=== PATIENT | female | born 1990 | race Caucasian/White ===

== ENCOUNTER 2017-05-08 14:36 | Inpatient (IN) | payer BC ==
[2017-05-08] MEDS ORDERED: morphine CARPU-JECT 4 MG/1 ML DISP.SYRIN IVPUSH ONE ×4 (15:01→22:02)
[2017-05-08] MEDS ORDERED: SODIUM CHLORIDE 0.9% 1000 ML INFUS.BAG IV ONE (15:02)
[2017-05-08] MEDS ORDERED: ONDANSETRON 4 MG/2 ML VIAL IVPUSH ONE (15:14)
--- NOTE | 2017-05-08 15:14 | PDOC ---
History of Present Illness - General Chief Complaint: Pain Stated Complaint: PAIN Time Seen by Provider: 05/08/17 14:53 - History of Present Illness Initial Comments: 05/08/17 15:10 Patient is a 27 y.o. female with a PMH of HTN who presents to our facility c/o acute onset of vomiting and sharp, diffuse, 10/10 abdominal pain. Patient states the pain woke her up at 2 a.m. and since that time she has vomited ( yellowish, no abiel blood) 40-50x. Patient denies any associated fevers, chills , diarrhea, constipation. Patient states she was evaluated at [facility] earlier today and told her labs indicated pancreatitis, patient was going to recieve a CT scan, however the hospital had bed bugs and she left. Patient further states [place] and does not have primary care. Surgical: Cholecystectomy (2010) Allergies: NKDA, iodine, latex Social: denies cigarettes, denies alcohol, denies recreational drgus PMD: None Past History - Past Medical History Allergies/Adverse Reactions: Allergies Allergy/AdvReac Type Severity Reaction Status Date / Time iodine Allergy Swelling Verified 05/08/17 14:43 latex Allergy Rash Verified 05/08/17 14:43 Home Medications: Ambulatory Orders Irbesartan [Avapro] 300 mg PO DAILY 05/08/17 HTN: Yes - Surgical History Cholecystectomy: Yes - Suicide/Smoking/Psychosocial Hx Smoking History: Never smoked Hx Alcohol Use: No Drug/Substance Use Hx: No Review of Systems - Review of Systems Constitutional: No: Chills, Fever Respiratory: No: Cough, Orthopnea Cardiac (ROS): No: Chest Pain ABD/GI: Yes: Nausea, Vomiting. No: Constipated, Diarrhea Neurological: No: Headache All Other Systems: Reviewed and Negative *Physical Exam - Vital Signs Last Vital Signs Temp Pulse Resp BP Pulse Ox 97.6 F 122 H 20 136/99 99 05/08/17 14:37 05/08/17 14:37 05/08/17 14:37 05/08/17 14:37 05/08/17 14:37 - Physical Exam General Appearance: Yes: Nourished, Obese Respiratory/Chest: positive: Lungs Clear Cardiovascular: positive: S1, S2 Gastrointestinal/Abdominal: positive: Tender, Protuberent Neurologic: positive: Fully Oriented, Alert ED Treatment Course - LABORATORY CBC & Chemistry Diagram: 05/08/17 15:15 05/08/17 18:40 - RADIOLOGY Radiology Studies Ordered: Category Date Time Status ABDOMEN & PELVIS CT WITH CONTR [CT] Stat CT Scan 05/08/17 15:07 Ordered Medical Decision Making - Medical Decision Making 05/08/17 15:19 Patient is a 27 y.o. female who presents w/acute onset of abdominal pain and vomiting. Patient was evaluated at [facility] earlier today and as per phone call had a Lipase of 15,596 and a BS of 400 suggesting pancreatitis 2/2 hyperglycemia. PLAN: 1. Lipase, CMP, CBC 2. 1 L IV NS 3. CT Abdomen w/o IV contrast - as patient has iodine allergy Reassess 05/08/17 16:02 Na reported @ 123, BS 567 -->corrected Na 134. Lipase 18,244. Serum Acetone (- ) making DKA less likely though Anion Gap of 18, BS 500's. Will administer additional 1 L IV NS + Insulin Drip . Wet read of CT Abdomen shows possible fat stranding/inflammation @ pancreas, confirmed by radiology. As patient's Lipase significantly elevated clinical decision to admit for overnight observation including pain control and possible provisional DM diagnosis. Hospitalist paged as patient is visiting from [place] and does not have primary care physician in the [place] Repeat VS pending. 05/08/17 20:31 Patient's Anion Gap closed. S/p 2 L IV NS. BS remains elevated at 552, patient on insulin drip. Will continue to monitor pending transfer to ICU. 05/08/17 20:[address] Fischer to ICU. *DC/Admit/Observation/Transfer Diagnosis at time of Disposition: Pancreatitis
[2017-05-08] MEDS ORDERED: ONDANSETRON 4 MG/2 ML VIAL ONE (15:15)
[2017-05-08] MEDS ORDERED: morphine CARPU-JECT 2 MG/1 ML DISP.SYRIN ONE ×2 (15:15→18:18)
[2017-05-08 15:49] LABS: ALBUMIN 2.8 g/dl (3.4-5.0); ANION GAP 18 (8-16); BILIRUBIN,TOTAL 1.1 mg/dL (0.2-1.0); CO2 17 mmol/L (21-32); CREATININE 0.7 mg/dL (0.55-1.02)
[2017-05-08 15:55] LABS: GLUCOSE,RANDOM 567 mg/dL (74-106)
[2017-05-08 16:23] LABS: BASOPHIL 0.5 % (0-2.0); EOSINOPHIL 0.2 % (0-4.5); MCH 25.8 pg (25.7-33.7); MCHC 33.5 g/dl (32.0-36.0); MEAN CELL VOLUME 77.2 fl (80-96); MEAN PLT VOLUME 9.8 fl (7.5-11.1); NEUTROPHILS 84.2 % (42.8-82.8); PLATELET COUNT 355 K/MM3 (134-434); RDW 15.6 % (11.6-15.6); WHITE BLOOD COUNT 13.1 K/mm3 (4.0-10.0)
[2017-05-08 17:58] LABS: URINE APPEARANCE SLCLOUDY; URINE BILIRUBIN NEGATIVE (NEGATIVE); URINE BLOOD 1+ (NEGATIVE); URINE COLOR LTYELLOW; URINE GLUCOSE (UA) 3+ (NEGATIVE); URINE KETONE 2+ (NEGATIVE); URINE NITRITE NEGATIVE (NEGATIVE); URINE UROBILINOGEN NEGATIVE mg/dL (0.2-1.0)
[2017-05-08 18:02] LABS: URINE PROTEIN 3+ (NEGATIVE)
[2017-05-08 18:04] LABS: URINE RBC 3 /hpf (0-3); URINE WBC 2 /hpf (3-5)
[2017-05-08] MEDS ORDERED: SODIUM CHLORIDE 0.9% 500 ML INFUS.BAG IV ONE (18:25)
--- NOTE | 2017-05-08 18:35 | PDOC ---
Attending Attestation - Resident Resident Name: Afua Vital - ED Attending Attestation I have performed the following: I have examined & evaluated the patient, The case was reviewed & discussed with the resident, I agree w/resident's findings & plan, Exceptions are as noted - HPI HPI: 05/08/17 18:30 27yo F with h/o HTN DM here with c/o epigastric pain, n/v was seen at [facility] earlier , was told she had pancreatitis and left [facility] bc heard they had bed bugs. no f/c no cp . does hurt when she takes deep breath. no h/o etoh abuse. has had cholecystectomy. - Physicial Exam PE: 05/08/17 18:32 awake alert lungs clear bilat. heart rrr no mrg. abd soft epigastric ttp. no rebound no guarding. ext wwp. no edema. - Medical Decision Making 05/08/17 18:32 27 yo F with likley pancreatitis. differential etoh , hyperlipidemia, sepsis. obstruction dka hyperglycemia. plan labs ekg cxr ct a/p lipase.
[2017-05-08] MEDS: INSULIN REGULAR 100 UNITS in SODIUM CHLORIDE 99 ML IVPB SCH (18:49)
[2017-05-08 19:13] LABS: ANION GAP 15 (8-16); CO2 18 mmol/L (21-32); CREATININE 0.7 mg/dL (0.55-1.02)
[2017-05-08 19:18] LABS: GLUCOSE,RANDOM 552 mg/dL (74-106)
[2017-05-08] MEDS ORDERED: SODIUM CHLORIDE 1,000 ML IV SCH (19:30)
--- NOTE | 2017-05-08 19:32 | HP ---
CHIEF COMPLAINT: abdominal pain, nausea/vomiting. PCP: not local HISTORY OF PRESENT ILLNESS: 27 yr old with asthma, HTN, and morbid obesity presents to the ED with nausea and nonbloody, nonbilous vomiting since this morning. She was in her usual state of health at dinner and woke up with acute sharp/stabbing radiating pain starting in her epigastrium diffusely to throughout her abdomen. Since she has not been passing gas or having a bowel movement since yesterday. she multiple episodes of vomiting, including in the ER that was nonbloody and nonbilous. abdominal pain continued with the morphine. she is visiting [place] from [place], arriving by plane on Wednesday to visit her grandmother. ER course was notable for: (1) IVF (2)CT scan with acute pancreatitis (3) cxy without acute pathology Recent Travel: from [place] PAST MEDICAL HISTORY: HTN Asthma - well controlled, no ICU, no intubations PAST SURGICAL HISTORY: cholecystectomy 2007 Social History: Smoking:denies Alcohol:denies Drugs: denies Family History: cousins with DM Allergies iodine Allergy (Verified 05/08/17 14:43) Swelling latex Allergy (Verified 05/08/17 14:43) Rash HOME MEDICATIONS: Avipro 300mg po daily for HTN REVIEW OF SYSTEMS CONSTITUTIONAL: Present: diaphoresis, Absent: fever, chills, generalized weakness, malaise, loss of appetite, weight change HEENT: Absent: rhinorrhea, nasal congestion, throat pain, throat swelling, difficulty swallowing, mouth swelling, visual changes CARDIOVASCULAR: Absent: chest pain, syncope, palpitations, irregular heart rate, lightheadedness , peripheral edema RESPIRATORY: Present: shortness of breath, Absent: cough, dyspnea with exertion, orthopnea, wheezing, stridor, hemoptysis GASTROINTESTINAL: Present: abdominal pain, abdominal distension, nausea, vomiting, Absent: diarrhea, constipation, melena, hematochezia GENITOURINARY: Absent: dysuria, frequency, urgency, hesitancy, hematuria, flank pain, genital pain MUSCULOSKELETAL: Absent: myalgia, arthralgia, joint swelling, back pain, neck pain SKIN: Absent: rash, itching, pallor HEMATOLOGIC/IMMUNOLOGIC: Absent: easy bleeding, easy bruising, lymphadenopathy, frequent infections ENDOCRINE: Absent: unexplained weight gain, unexplained weight loss, heat intolerance, cold intolerance NEUROLOGIC: Absent: headache, focal weakness or paresthesias, dizziness, unsteady gait, seizure, mental status changes, bladder or bowel incontinence PHYSICAL EXAMINATION Vital Signs - 24 hr 05/08/17 14:37 Temperature 97.6 F Pulse Rate 122 H Respiratory 20 Rate Blood Pressure 136/99 O2 Sat by Pulse 99 Oximetry (%) GENERAL: Awake, alert, and fully oriented, in moderate distress, sweating profusely and crying, unable to move in bed. HEAD: Normal with no signs of trauma. EYES: Pupils equal, round and reactive to light, extraocular movements intact, sclera anicteric, conjunctiva clear. No lid lag. EARS, NOSE, THROAT: Ears normal, nares patent, oropharynx clear without exudates. dry mucous membranes. NECK: Normal range of motion, supple without lymphadenopathy, thick neck LUNGS: diffuse crackles throughout with coarse breath sounds. HEART: Regular rhythm, tachycardia, normal S1 and S2 without murmur, rub or gallop. ABDOMEN: Soft to mild firmness, diffusely tender to light palpation, + distended , hypoactive bowel sounds. MUSCULOSKELETAL: patient feels weak, poor effort on motor strength exam UPPER EXTREMITIES: 2+ radial pulses, warm, well-perfused. No cyanosis. No clubbing. No peripheral edema. LOWER EXTREMITIES: 2+ dp pulses, warm, well-perfused. No calf tenderness. No peripheral edema. NEUROLOGICAL: Cranial nerves II-XII intact. Normal speech. sensation intact on b/l face,arms and feet. SKIN: Warm, sweating Laboratory Results - last 24 hr 05/08/17 05/08/17 05/08/17 15:15 15:15 15:15 WBC 13.1 H RBC 5.71 H Hgb 14.8 Hct 44.1 MCV 77.2 L MCH 25.8 MCHC 33.5 RDW 15.6 Plt Count 355 MPV 9.8 Neutrophils % 84.2 H Lymphocytes % 10.1 Monocytes % 5.0 Eosinophils % 0.2 Basophils % 0.5 Sodium 123 L* Potassium 4.1 Chloride 88 L Carbon Dioxide 17 L Anion Gap 18 H BUN TNP Creatinine 0.7 Creat Clearance w eGFR > 60 Random Glucose 567 H* Calcium TNP Total Bilirubin 1.1 H AST TNP ALT TNP Alkaline Phosphatase TNP Total Protein TNP Albumin 2.8 L Lipase 11683 H Serum , Qual Urine Color Urine Appearance Urine pH Urine Protein Urine Glucose (UA) Urine Ketones Urine Blood Urine Nitrite Urine Bilirubin Urine Urobilinogen Urine RBC Urine WBC Ur Epithelial Cells Urine HCG, Qual Acetone, Qual 05/08/17 05/08/17 05/08/17 15:15 15:15 17:45 WBC RBC Hgb Hct MCV MCH MCHC RDW Plt Count MPV Neutrophils % Lymphocytes % Monocytes % Eosinophils % Basophils % Sodium Potassium Chloride Carbon Dioxide Anion Gap BUN Creatinine Creat Clearance w eGFR Random Glucose Calcium Total Bilirubin AST ALT Alkaline Phosphatase Total Protein Albumin Lipase Serum , Qual Negative Urine Color Urine Appearance Urine pH Urine Protein Urine Glucose (UA) Urine Ketones Urine Blood Urine Nitrite Urine Bilirubin Urine Urobilinogen Urine RBC Urine WBC Ur Epithelial Cells Urine HCG, Qual Negative Acetone, Qual Negative L 05/08/17 05/08/17 17:45 18:40 WBC RBC Hgb Hct MCV MCH MCHC RDW Plt Count MPV Neutrophils % Lymphocytes % Monocytes % Eosinophils % Basophils % Sodium 123 L* Potassium 4.4 Chloride 90 L Carbon Dioxide 18 L Anion Gap 15 BUN 7 Creatinine 0.7 Creat Clearance w eGFR Random Glucose 552 H* Calcium TNP Total Bilirubin AST ALT Alkaline Phosphatase Total Protein Albumin Lipase Serum , Qual Urine Color Ltyellow Urine Appearance Slcloudy Urine pH 5.0 Urine Protein 3+ H Urine Glucose (UA) 3+ H Urine Ketones 2+ H Urine Blood 1+ H Urine Nitrite Negative Urine Bilirubin Negative Urine Urobilinogen Negative Urine RBC 3 Urine WBC 2 Ur Epithelial Cells Rare Urine HCG, Qual Acetone, Qual ASSESSMENT/PLAN: 27 yr old woman with HTN, presents with n/v a/w abdominal pain found to have elevated lipase and DKA admitted to ICU for further evalatuon and management. #DKA -(low bicarb, hyperglycemia, ur ketones) - with high anion gap acidosis (corrected for albumin gap of 21), pseudohyponatremia due to hyperglycemia; raul 134 - start IVF NS, insulin drip 0.1u/kg until anion gap is closed - BGM q1hr, BMP q4hr, substitute D5-1/2ns if BGM <250 and gap not closed - replete potassium if <4.1, check MG and phos - once gap closedm add long acting insulin and advance diet prior to stopping drip - may need endo consult for diabetic management and licensed guide counseling for diet - HBA1C level in the AM - NPO #Pancreatitis - r/o triglycerides, check ETOH level, hepatitis panel, may need GI evaluation for MRCP to r/o gallstones, - Pain control as needed, morphine 4mg IVP - abd u/s for further evaluations - may need GI consult - likely causing the DKA - IVF resuscitation continous #Leucocytosis - r/o infectious cause, check blood cx, u/a, lactate level #Asthma - dounebs prn - supplemental oxygen as needed - monitor pulse ox, repeat chest xray #Tachycardia - likely due to pain #HTN - hold HTN meds, as she is being given IVF and normotensive #DVT: heparin #Diet: npo Code status: FULL CODE, discussed options and patient expressed that wants "everything done" Visit type - Emergency Visit Emergency Visit: Yes ED Registration Date: 05/08/17 Care time: The patient presented to the Emergency Department on the above date and was hospitalized for further evaluation of their emergent condition. - New Patient This patient is new to me today: Yes Date on this admission: 05/08/17 - Critical Care Critical Care patient: No
[2017-05-08 21:54] LABS: URINE LEUK ESTERASE Negative (NEGATIVE)
--- NOTE | 2017-05-08 22:49 | CONSULT ---
Consult Consult Specialty:: Pulm/CCM Reason for Consultation:: DKA, pancreatitis - History of Present Illness Chief Complaint: nausea, vomiting, abd pain History of Present Illness: This is a 27 yo woman morbidly obese, HTN, recent hospitalization in [place] for bronchitis t/w levaquin and albuterol who presented to ED w/ acute epigastric pain, nausea and vomiting (nonbloody). She denies ever being diagnosed with DM in the past. Labs significant for elevated lipase (31643), AG 18, hyperglycemia (567) w/ ketones and leukocytosis (13.1). Her exam was notable for diffuse abdominal pain. CTAP done showing severly inflamed pancreas w/ fat stranding. Patient given IV fluids and insulin drip started. Patient denies EtOH abuse and has h/o cholecystectomy. Modified Justin score: 0 (P:F > 400, SCr 0.7, SBP 120). - History Source History Provided By: Patient, Medical Record Limitations to Obtaining History: No Limitations - Past Medical History Cardio/Vascular: Yes: HTN Pulmonary: Yes: Bronchitis - Past Surgical History Past Surgical History: Yes: Cholecystectomy - Alcohol/Substance Use Hx Alcohol Use: No - Smoking History Smoking history: Never smoked - Social History Usual Living Arrangement: With Spouse ADL: Independent Home Medications - Allergies Allergies/Adverse Reactions: Allergies Allergy/AdvReac Type Severity Reaction Status Date / Time iodine Allergy Swelling Verified 05/08/17 14:43 latex Allergy Rash Verified 05/08/17 14:43 - Home Medications Home Medications: Ambulatory Orders Irbesartan [Avapro] 300 mg PO DAILY 05/08/17 Family Disease History - Family Disease History Family History: Unremarkable Review of Systems - Review of Systems HENT: reports: No Symptoms Cardiovascular: reports: No Symptoms Respiratory: reports: Cough Gastrointestinal: reports: Abdominal Pain, Nausea, Vomiting Genitourinary: reports: No Symptoms Pain Intensity: 10 Physical Exam Vital Signs: Vital Signs Temperature 98.7 F 05/08/17 22:00 Pulse Rate 128 H 05/08/17 22:00 Respiratory Rate 28 H 05/08/17 22:00 Blood Pressure 111/68 05/08/17 22:00 O2 Sat by Pulse Oximetry (%) 98 05/08/17 22:00 Constitutional: Yes: Mild Distress, Obese Eyes: Yes: PERRL Cardiovascular: Yes: Tachycardia, S1, S2 Respiratory: Yes: CTA Bilaterally Gastrointestinal: Yes: Soft, Distention, Tenderness Musculoskeletal: Yes: WNL Extremities: Yes: WNL Edema: No Integumentary: Yes: WNL Neurological: Yes: Alert, Oriented, Cran Nerves II-XII Intact Psychiatric: Yes: Alert, Oriented Labs: CBCD WBC 13.1 K/mm3 (4.0-10.0) H 05/08/17 15:15 RBC 5.71 M/mm3 (3.60-5.2) H 05/08/17 15:15 Hgb 14.8 GM/dL (10.7-15.3) 05/08/17 15:15 Hct 44.1 % (32.4-45.2) 05/08/17 15:15 MCV 77.2 fl (80-96) L 05/08/17 15:15 MCHC 33.5 g/dl (32.0-36.0) 05/08/17 15:15 RDW 15.6 % (11.6-15.6) 05/08/17 15:15 Plt Count 355 K/MM3 (134-434) 05/08/17 15:15 MPV 9.8 fl (7.5-11.1) 05/08/17 15:15 CMP Sodium 123 mmol/L (136-145) L* 05/08/17 18:40 Potassium 4.4 mmol/L (3.5-5.1) 05/08/17 18:40 Chloride 90 mmol/L (98-107) L 05/08/17 18:40 Carbon Dioxide 18 mmol/L (21-32) L 05/08/17 18:40 Anion Gap 15 (8-16) 05/08/17 18:40 BUN 7 mg/dL (7-18) 05/08/17 18:40 Creatinine 0.7 mg/dL (0.55-1.02) 05/08/17 18:40 Creat Clearance w eGFR > 60 (>60) 05/08/17 15:15 Random Glucose 552 mg/dL (74-106) H* 05/08/17 18:40 Calcium TNP 05/08/17 18:40 Total Bilirubin 1.1 mg/dL (0.2-1.0) H 05/08/17 15:15 AST TNP 05/08/17 15:15 ALT TNP 10/21/17 15:15 Alkaline Phosphatase TNP 05/08/17 15:15 Total Protein TNP 05/08/17 15:15 Albumin 2.8 g/dl (3.4-5.0) L 05/08/17 15:15 Urine Test Results Urine Color Ltyellow 05/08/17 17:45 Urine Appearance Slcloudy 05/08/17 17:45 Urine pH 5.0 (5.0-8.0) 05/08/17 17:45 Ur Specific Kincaid 1.015 (1.005-1.025) 05/08/17 17:45 Urine Protein 3+ (NEGATIVE) H 05/08/17 17:45 Urine Glucose (UA) 3+ (NEGATIVE) H 05/08/17 17:45 Urine Ketones 2+ (NEGATIVE) H 05/08/17 17:45 Urine Blood 1+ (NEGATIVE) H 05/08/17 17:45 Urine Nitrite Negative (NEGATIVE) 05/08/17 17:45 Urine Bilirubin Negative (NEGATIVE) 05/08/17 17:45 Ur Leukocyte Esterase Negative (NEGATIVE) 05/08/17 17:45 Urine RBC 3 /hpf (0-3) 05/08/17 17:45 Urine WBC 2 /hpf (3-5) 05/08/17 17:45 Ur Epithelial Cells Rare /hpf (FEW) 05/08/17 17:45 Laboratory Tests 05/08/17 15:15 Lipase 72622 H Imaging - Results Chest X-ray: Report Reviewed, Image Reviewed Cat Scan: Image Reviewed Problem List - Problems (1) Pancreatitis Code(s): K85.90 - ACUTE PANCREATITIS WITHOUT NECROSIS OR INFECTION, UNSP (2) DKA (diabetic ketoacidoses) Code(s): E13.10 - OTH DIABETES MELLITUS WITH KETOACIDOSIS WITHOUT COMA Assessment/Plan 27 yo woman morbid obesity, HTN, p/w abdominal pain, nausea and vomiting found to have DKA and pancreatitis of unclear etiology: DKA related vs obstruction (h/ o cholecystectomy) vs infection vs hyperlipidemia -GI consult -NPO -pain management -Abd ultrasound tonight -f/u final CTAP read -consider ERCP -acute hepatitis w/u -lipid panel -EtOH level -IV fluids for pancreatitis -trend lipase, LDH and LFT for 48hrs -O2 for sat >90% -prn bronchodilators -Incentive spirometry -Endocrine consult given new diagnosis of diabetes, will need DM education -Insulin drip 0.1units/kg/hr --if BG doesnt fall by 50-70 mg/dl in first hr double insulin infusion until BG drops by 50-70 mg/dl --goal B-200mg/dl until AG closes --if BG fall <70 mg/dl hold insulin x15m and bolus D50 IVP --restart insulin at half prior dose and notify prodiver -IV fluids 100-250ml/hr --corrected sodium >140 use d5 1/2NS --corrected sodium <140 use NS --add D5 once BG reaches 250 mg/dl -potassium replacement --K> 5.5mEq/l no replacement --K 4-5 mEq/l add KCl 20 mEq to each liter of IVF --K 3.5-3.9 mEq/l add KCL 20-40 mEq to each liter of IVF --K 3.1-3.4 mEq/l add KCL 40-60 mEq to each liter of IVF --K <3 mEq/l add KCL 40-80 mEq to each liter of IVF (call provider) -BMP q4-6hrs until AG closes -Once AG closed and ketosis resolved and able to tolerate PO diet transition to insulin sq -DVT prophylaxis Boerem ACNP Pulm/CCM CT: 45m
[2017-05-08] MEDS ORDERED: HYDROmorphone HCL CARPU-JECT 1 MG/1 ML DISP.SYRIN IVPUSH PRN (22:52)
[2017-05-08] MEDS: CHLORHEXIDINE GLUCONATE 4% CLEANSER FOR DECOLONIZATION TP SCH (22:59)
[2017-05-08] MEDS ORDERED: DEXTROSE 5%-NORMAL SALINE 1,000 ML IV SCH (23:00)
[2017-05-08] MEDS: HYDROmorphone HCL CARPU-JECT 1 MG/1 ML DISP.SYRIN IVPUSH PRN (23:05)
[2017-05-08] MEDS ORDERED: SODIUM CHLORIDE 1,000 ML IV STA (23:14)
[2017-05-08] MEDS: MUPIROCIN 2% TOPICAL OINTMENT FOR DECOLONIZATION NS SCH (23:29)
[2017-05-08 23:46] LABS: ALBUMIN 2.6 g/dl (3.4-5.0)
[2017-05-08] MEDS ORDERED: ALBUTEROL SO4 0.083% IH SOL 2.5 MG/3 ML VIAL.NEB. NEB PRN (23:55)
[2017-05-09 00:28] LABS: BILIRUBIN,DIRECT 0.1 mg/dL (0.0-0.2)
[2017-05-09 00:29] LABS: TOT PROT 6.2 g/dl (6.4-8.2)
[2017-05-09 00:30] LABS: CHOLESTEROL 917 mg/dL (50-200)
--- NOTE | 2017-05-09 00:36 | PN ---
Teaching Attending Note Name of Resident: Ivy Estrella ATTENDING PHYSICIAN STATEMENT I saw and evaluated the patient. Chart, data, imaging reviewed. I reviewed the resident's note and discussed the case with the resident. I agree with the resident's findings and plan as documented with modifications below. SUBJECTIVE: 27 yo woman morbidly obese, HTN who came from [place] a few days ago c/o severe abdominal pain -04/27 which started 05/08/17 in the morning, nausea and vomiting. She denies ever being diagnosed with DM in the past. Patient denies EtOH abuse and has remote history of cholecystectomy. No Hx of trauma to abdomen. CT-AP done showing severly inflamed pancreas w/ fat stranding, found to have hyperglycemia, given IV fluids and insulin drip started. OBJECTIVE: Last Vital Signs Temp Pulse Resp BP Pulse Ox 98.7 F 128 H 28 H 111/68 98 05/08/17 22:00 05/08/17 22:00 05/08/17 22:00 05/08/17 22:00 05/08/17 22:00 General- morbidly obese, appears uncomfortable HEENT-atraumatic, normocephalic, dry oral mucosa Neck -supple CV-s1+s2+ tachycardia Chest- coarse breath sounds appreciated b/l Abdomen- obese, decreased bowel sounds, mild distention, tenderness+ Skin- no rashes appreciated EKG -reviewed - sinus tachycardia CXR - reviewed, no infiltrates visible CT of abdomen - pancreatic inflammation Abnormal Lab Results 05/08/17 05/08/17 05/08/17 15:15 15:15 15:15 WBC 13.1 H RBC 5.71 H MCV 77.2 L Neutrophils % 84.2 H Sodium 123 L* Chloride 88 L Carbon Dioxide 17 L Anion Gap 18 H Random Glucose 567 H* Total Bilirubin 1.1 H Total Protein Albumin 2.8 L Cholesterol Total LDL Cholesterol Lipase 99971 H Urine Protein Urine Glucose (UA) Urine Ketones Urine Blood Acetone, Qual 05/08/17 05/08/17 05/08/17 15:15 17:45 18:40 WBC RBC MCV Neutrophils % Sodium 123 L* Chloride 90 L Carbon Dioxide 18 L Anion Gap Random Glucose 552 H* Total Bilirubin Total Protein Albumin Cholesterol Total LDL Cholesterol Lipase Urine Protein 3+ H Urine Glucose (UA) 3+ H Urine Ketones 2+ H Urine Blood 1+ H Acetone, Qual Negative L 05/08/17 05/08/17 19:00 19:00 WBC RBC MCV Neutrophils % Sodium Chloride Carbon Dioxide Anion Gap Random Glucose Total Bilirubin Total Protein 6.2 L Albumin 2.6 L Cholesterol 917 H* Total LDL Cholesterol 127 H Lipase Urine Protein Urine Glucose (UA) Urine Ketones Urine Blood Acetone, Qual ASSESSMENT AND PLAN: #DKA-evidences by hyperglycemia, with 2+ ketones in urine, + AG. NO hx of DM , + family history. Patient given multiple boluses of IVF, started on insulin drip. Unclear whether DKA was caused by acute pancreatitis or vice versa. Na corrected for hyperglycemia is 133. -admit to ICU -NPO -continue insulin drip and adjust as per DKA protocol -IVF hydration -Check electrolytes and correct as needed (including mg, phos) -A1c -NATE ab -consider endocrine evaluation -lactate level #Acute pancreatitis - uncertain etiology, May have been caused by DM. Should consider MRCP to evaluate for choledocholithiasis. -IVF hydration -Morphine PRN for pain control -NPO -etoh level -urine toxicology -consider mrcp #DVT ppx -low risk -SCDs #Diet -NPO
[2017-05-09 01:48] LABS: ANION GAP 15 (8-16); CO2 17 mmol/L (21-32)
[2017-05-09 01:52] LABS: GLUCOSE,RANDOM 388 mg/dL (74-106)
[2017-05-09] MEDS: HYDROmorphone HCL CARPU-JECT 1 MG/1 ML DISP.SYRIN IVPUSH PRN ×2 (03:40→07:35)
[2017-05-09] MEDS ORDERED: SODIUM CHLORIDE 1,000 ML IV STA (05:35)
[2017-05-09 05:55] LABS: MCH 26.7 pg (25.7-33.7); MCHC 34.5 g/dl (32.0-36.0); MEAN CELL VOLUME 77.2 fl (80-96); MEAN PLT VOLUME 9.4 fl (7.5-11.1); PLATELET COUNT 349 K/MM3 (134-434); RDW 16.1 % (11.6-15.6); WHITE BLOOD COUNT 7.9 K/mm3 (4.0-10.0)
[2017-05-09] MEDS: HEPARIN NA (PORCINE) 5,000 UNITS/ML 1ML VIAL SQ SCH ×3 (06:05→22:47)
[2017-05-09 06:22] LABS: ALBUMIN 2.1 g/dl (3.4-5.0); AMYLASE 481 U/L (25-115); ANION GAP 16 (8-16); CO2 18 mmol/L (21-32); CREATININE 1.6 mg/dL (0.55-1.02)
[2017-05-09] MEDS: INSULIN REGULAR 100 UNITS in SODIUM CHLORIDE 99 ML IVPB SCH ×2 (06:24→20:00)
[2017-05-09 06:29] LABS: ALK PHOS 53 U/L (45-117); BILIRUBIN,TOTAL 1.1 mg/dL (0.2-1.0)
[2017-05-09] MEDS ORDERED: INSULIN REGULAR HUMAN 100 UNITS/ML *VIAL ONE ×2 (06:48→20:17)
[2017-05-09 08:03] LABS: MAGNESIUM 1.2 mg/dL (1.8-2.4); TOT PROT 5.7 g/dl (6.4-8.2)
[2017-05-09 08:05] LABS: SGPT/ALT 61 U/L (12-78)
[2017-05-09 08:06] LABS: SGOT/AST 61 U/L (15-37)
[2017-05-09] MEDS ORDERED: SODIUM CHLORIDE 0.9% 1000 ML INFUS.BAG IV ONE (08:07)
[2017-05-09] MEDS ORDERED: MAGNESIUM SULF 50% (8.12 MEQ/2 ML-1 GM VIAL) ONE (08:12)
--- NOTE | 2017-05-09 08:32 | PN ---
Progress Note (short form) - Note Progress Note: Subjective: She has no fever or chills, has abd pain, has SOB , feels tired. Objective: Vital Signs: Last Vital Signs Temp Pulse Resp BP Pulse Ox 98.1 F 129 H 40 H 111/68 94 L 05/09/17 06:00 05/09/17 06:00 05/09/17 06:00 05/09/17 06:00 05/08/17 22:10 Laboratory Results - last 24 hr 05/08/17 05/08/17 05/08/17 15:15 15:15 15:15 WBC 13.1 H RBC 5.71 H Hgb 14.8 Hct 44.1 MCV 77.2 L MCH 25.8 MCHC 33.5 RDW 15.6 Plt Count 355 MPV 9.8 Neutrophils % 84.2 H Lymphocytes % 10.1 Monocytes % 5.0 Eosinophils % 0.2 Basophils % 0.5 Sodium 123 L* Potassium 4.1 Chloride 88 L Carbon Dioxide 17 L Anion Gap 18 H BUN TNP Creatinine 0.7 Creat Clearance w eGFR > 60 POC Glucometer Random Glucose 567 H* Lactic Acid Calcium TNP Phosphorus Magnesium Total Bilirubin 1.1 H Direct Bilirubin AST TNP ALT TNP Alkaline Phosphatase TNP LD Total Total Protein TNP Albumin 2.8 L Triglycerides Cholesterol Total LDL Cholesterol HDL Cholesterol Total Amylase Lipase 06201 H Serum , Qual Urine Color Urine Appearance Urine pH Ur Specific [place] Urine Protein Urine Glucose (UA) Urine Ketones Urine Blood Urine Nitrite Urine Bilirubin Urine Urobilinogen Ur Leukocyte Esterase Urine RBC Urine WBC Ur Epithelial Cells Urine HCG, Qual Alcohol, Quantitative Acetone, Qual 05/08/17 05/08/17 05/08/17 15:15 15:15 17:45 WBC RBC Hgb Hct MCV MCH MCHC RDW Plt Count MPV Neutrophils % Lymphocytes % Monocytes % Eosinophils % Basophils % Sodium Potassium Chloride Carbon Dioxide Anion Gap BUN Creatinine Creat Clearance w eGFR POC Glucometer Random Glucose Lactic Acid Calcium Phosphorus Magnesium Total Bilirubin Direct Bilirubin AST ALT Alkaline Phosphatase LD Total Total Protein Albumin Triglycerides Cholesterol Total LDL Cholesterol HDL Cholesterol Total Amylase Lipase Serum , Qual Negative Urine Color Urine Appearance Urine pH Ur Specific [place] Urine Protein Urine Glucose (UA) Urine Ketones Urine Blood Urine Nitrite Urine Bilirubin Urine Urobilinogen Ur Leukocyte Esterase Urine RBC Urine WBC Ur Epithelial Cells Urine HCG, Qual Negative Alcohol, Quantitative Acetone, Qual Negative L 05/08/17 05/08/17 05/08/17 17:45 18:40 19:00 WBC RBC Hgb Hct MCV MCH MCHC RDW Plt Count MPV Neutrophils % Lymphocytes % Monocytes % Eosinophils % Basophils % Sodium 123 L* Potassium 4.4 Chloride 90 L Carbon Dioxide 18 L Anion Gap 15 BUN 7 Creatinine 0.7 Creat Clearance w eGFR POC Glucometer Random Glucose 552 H* Lactic Acid Calcium TNP Phosphorus Magnesium Total Bilirubin 1.0 Direct Bilirubin 0.1 AST 34 ALT 69 Alkaline Phosphatase 60 LD Total Total Protein 6.2 L Albumin 2.6 L Triglycerides Cholesterol Total LDL Cholesterol HDL Cholesterol Total Amylase Lipase Serum , Qual Urine Color Ltyellow Urine Appearance Slcloudy Urine pH 5.0 Ur Specific [place] 1.015 Urine Protein 3+ H Urine Glucose (UA) 3+ H Urine Ketones 2+ H Urine Blood 1+ H Urine Nitrite Negative Urine Bilirubin Negative Urine Urobilinogen Negative Ur Leukocyte Esterase Negative Urine RBC 3 Urine WBC 2 Ur Epithelial Cells Rare Urine HCG, Qual Alcohol, Quantitative Acetone, Qual 05/08/17 05/08/17 05/08/17 19:00 20:24 21:58 WBC RBC Hgb Hct MCV MCH MCHC RDW Plt Count MPV Neutrophils % Lymphocytes % Monocytes % Eosinophils % Basophils % Sodium Potassium Chloride Carbon Dioxide Anion Gap BUN Creatinine Creat Clearance w eGFR POC Glucometer [phone] Random Glucose Lactic Acid Calcium Phosphorus Magnesium Total Bilirubin Direct Bilirubin AST ALT Alkaline Phosphatase LD Total Total Protein Albumin Triglycerides 6972 H Cholesterol 917 H* Total LDL Cholesterol 127 H HDL Cholesterol 49 Total Amylase Lipase Serum , Qual Urine Color Urine Appearance Urine pH Ur Specific [place] Urine Protein Urine Glucose (UA) Urine Ketones Urine Blood Urine Nitrite Urine Bilirubin Urine Urobilinogen Ur Leukocyte Esterase Urine RBC Urine WBC Ur Epithelial Cells Urine HCG, Qual Alcohol, Quantitative Acetone, Qual 05/09/17 05/09/17 05/09/17 00:30 00:30 00:30 WBC RBC Hgb Hct MCV MCH MCHC RDW Plt Count MPV Neutrophils % Lymphocytes % Monocytes % Eosinophils % Basophils % Sodium Potassium Chloride Carbon Dioxide Anion Gap BUN Creatinine Creat Clearance w eGFR POC Glucometer Random Glucose Lactic Acid 2.1 H* Calcium Phosphorus Magnesium Total Bilirubin Direct Bilirubin AST ALT Alkaline Phosphatase LD Total 320 H Total Protein Albumin Triglycerides Cholesterol Total LDL Cholesterol HDL Cholesterol Total Amylase Lipase Serum , Qual Urine Color Urine Appearance Urine pH Ur Specific [place] Urine Protein Urine Glucose (UA) Urine Ketones Urine Blood Urine Nitrite Urine Bilirubin Urine Urobilinogen Ur Leukocyte Esterase Urine RBC Urine WBC Ur Epithelial Cells Urine HCG, Qual Alcohol, Quantitative < 5.0 Acetone, Qual 05/09/17 05/09/17 05/09/17 00:56 05:45 05:45 WBC 7.9 D RBC 6.00 H Hgb 16.0 H Hct 46.4 H MCV 77.2 L MCH 26.7 MCHC 34.5 RDW 16.1 H Plt Count 349 MPV 9.4 Neutrophils % Lymphocytes % Monocytes % Eosinophils % Basophils % Sodium 126 L 127 L Potassium 5.2 H 4.8 Chloride 94 L 93 L Carbon Dioxide 17 L 18 L Anion Gap 15 16 BUN 12 D 15 D Creatinine 1.0 D 1.6 H D Creat Clearance w eGFR POC Glucometer Random Glucose 388 H* D 373 H* Lactic Acid Calcium TNP 21.6 H* Phosphorus 0.6 L* Magnesium 1.2 L Total Bilirubin 1.1 H Direct Bilirubin AST 61 H D ALT 61 Alkaline Phosphatase 53 LD Total Total Protein 5.7 L Albumin 2.1 L Triglycerides Cholesterol Total LDL Cholesterol HDL Cholesterol Total Amylase 481 H Lipase 8812 H Serum , Qual Urine Color Urine Appearance Urine pH Ur Specific [place] Urine Protein Urine Glucose (UA) Urine Ketones Urine Blood Urine Nitrite Urine Bilirubin Urine Urobilinogen Ur Leukocyte Esterase Urine RBC Urine WBC Ur Epithelial Cells Urine HCG, Qual Alcohol, Quantitative Acetone, Qual 05/09/17 05/09/17 06:18 06:54 WBC RBC Hgb Hct MCV MCH MCHC RDW Plt Count MPV Neutrophils % Lymphocytes % Monocytes % Eosinophils % Basophils % Sodium Potassium Chloride Carbon Dioxide Anion Gap BUN Creatinine Creat Clearance w eGFR POC Glucometer [phone] Random Glucose Lactic Acid Calcium Phosphorus Magnesium Total Bilirubin Direct Bilirubin AST ALT Alkaline Phosphatase LD Total Total Protein Albumin Triglycerides Cholesterol Total LDL Cholesterol HDL Cholesterol Total Amylase Lipase Serum , Qual Urine Color Urine Appearance Urine pH Ur Specific [place] Urine Protein Urine Glucose (UA) Urine Ketones Urine Blood Urine Nitrite Urine Bilirubin Urine Urobilinogen Ur Leukocyte Esterase Urine RBC Urine WBC Ur Epithelial Cells Urine HCG, Qual Alcohol, Quantitative Acetone, Qual Physical Exam: diaohoretic , lethargic , arousable . CV: regular rhythm , NO MRG , tachycardic . Lungs: b/l crackles ABd: distended , TTP inés in epigastric area. decreased BS . EXt : no edema . DP 2+ b/ Assessment/Plan: 27 y/o lady with h/o Asthma , who presented with Abd pain , and was found to have DKA, acute pancreatitis and severe hypertricglyceredemia. 1- Hypertriglyceredemia induced acute pancreatitis. the pt is tachycardic, tachypnic, and diaphoretic. Cxray this am with possible ARDS. - Cont fluid resuscitation . might need to be intubated given her condition - COnt insulin gtt . - will arrange for apheresis as a rapid definitive treatment for severe hypertriglyceredemia - Spoke to Dr. Mike, from [facility] . Will wait for Recs - Spoke to [facility] for plasma pheresis , [phone], - spoke with CHRISTINE Castaneda , the pheresis RN, . Took the Needed orders : 4 L of 5% albumin , with 1 g calcium gluconate during the procedure - will place Triple lumin HD cath. - Calcium is 21 but this is unlikely correct due to the severe high TG. Will repeat - [place] score 1 , indicating a mortality of 0-3 %. will repeat at 48 hrs - follow LFTS , US of abd pending read . - will start Lopid when able to take PO, possible intubation 2- DKA : probably triggered by acute pancreatitis . AG improved , GLC dropped < 250 so now on D5 NS - cont insulin gtt - frequent BMP, Phos , Mg, K - A1c pending - cont IVF 3- ABBEY: due to severe volume depletion. - Monitor with IVF 4- Hyponatremia : initially pseudohyponatremia , and now true probably due to volume depletion On admission corrected Na :135.3. This am corrected Na 129.5 Unfofrtunately Urine osm , NA and Plasma Osm were not done , and now on NS . - monitor on IVF 5- DVT pX ICU level of care . Pt has decision making capacity, she agrees to intubation if needed and to plasma pheresis family called , message left Visit type - Emergency Visit Emergency Visit: Yes ED Registration Date: 05/08/17 Care time: The patient presented to the Emergency Department on the above date and was hospitalized for further evaluation of their emergent condition. - New Patient This patient is new to me today: Yes Date on this admission: 05/09/17 - Critical Care Critical Care patient: Yes Total Critical Care Time (in minutes): 60 Critical Care Statement: The care of this patient involved high complexity decision making to prevent further life threatening deterioration of the patient 's condition and/or to evaluate & treat vital organ system(s) failure or risk of failure.
[2017-05-09] MEDS ORDERED: SODIUM PHOSPHATE - 0 MM in DEXTROSE 5%-WATER - 250 ML IVPB ONE (08:36)
[2017-05-09] MEDS ORDERED: MAGNESIUM SULF 50% (8.12 MEQ/2 ML-1 GM VIAL) IVPB ONE (08:45)
[2017-05-09 08:46] LABS: CALCIUM 21.6 mg/dL (8.5-10.1); GLUCOSE,RANDOM 373 mg/dL (74-106); PHOSPHOROUS 0.6 mg/dL (2.5-4.9)
[2017-05-09 08:47] LABS: BILIRUBIN,DIRECT 0.3 mg/dL (0.0-0.2); LDH 438 U/L (84-246)
[2017-05-09] MEDS ORDERED: SODIUM PHOSPHATE - 30 MM in SODIUM CHLORIDE 250 ML IVPB ONE (09:06)
[2017-05-09] MEDS ORDERED: MIDAZOLAM HCL 5 MG/1 ML Single Dose Vial ONE (09:27)
[2017-05-09 09:29] LABS: CHOLESTEROL 973 mg/dL (50-200)
[2017-05-09] MEDS ORDERED: LIDOCAINE HCL 1%, 10 MG/ML (20ML VIAL) ONE (09:35)
[2017-05-09] MEDS ORDERED: SUCCINYLCHOLINE CHLORIDE 200 MG/10 ML VIAL ONE (09:50)
[2017-05-09] MEDS ORDERED: NOREPINEPHRINE BITARTRATE 4 MG/4 ML ML IV ONE ×3 (10:10→19:18)
--- NOTE | 2017-05-09 10:19 | PROC ---
Intubation - Intubation Reason for Intubation: Respiratory Failure Time of Intubation: 10:18 Intubation Method: orotracheal Blade used: Mac Tube Size (cm): 7.5 Tube position @ lip (cm): 22 Tube position confirmed by: CO2 detector, Breath sounds Breath Sounds after Intubation: equal Post Intubation Xray: Yes (ordered) Remarks: Grade I view, Mac IV blade, atraumatic intubation.
--- NOTE | 2017-05-09 10:21 | PROC ---
Central Line Insertion Indication: Vasopressor, Other (plasmapheresis) Risks and Benefits Explained: Yes Consent on Chart: Yes Central Line: Dialysis Cath, Tri Lumen Anesthesia: 1% Lidocaine Sterile Technique: Yes Ultrasound Guided Assistance: Yes Position: Right Internal Jugular Post Insertion: Yes: Bilateral Breath Sounds, Chest X-Ray Ordered Sterile Dressing Applied: Yes
[2017-05-09] MEDS: NOREPINEPHRINE BITARTRATE 8,000 MCG in DEXTROSE 5%-WATER - 492 ML IV SCH ×2 (10:30→23:00)
--- NOTE | 2017-05-09 10:39 | PN ---
Progress Note (short form) - Note Progress Note: PULM/CCM Pt seen and examined in the ICU 24HR: + worsening renal failure + worsening gas exchange + CXR with ARDS pattern + planning for plasmaphersis for lipid induced pancreatits (triglycerides >6K) + 3L overnight + CTAP with severe pancreatitis CBCD WBC 7.9 K/mm3 (4.0-10.0) D 05/09/17 05:45 RBC 6.00 M/mm3 (3.60-5.2) H 05/09/17 05:45 Hgb 16.0 GM/dL (10.7-15.3) H 05/09/17 05:45 Hct 46.4 % (32.4-45.2) H 05/09/17 05:45 MCV 77.2 fl (80-96) L 05/09/17 05:45 MCHC 34.5 g/dl (32.0-36.0) 05/09/17 05:45 RDW 16.1 % (11.6-15.6) H 05/09/17 05:45 Plt Count 349 K/MM3 (134-434) 05/09/17 05:45 MPV 9.4 fl (7.5-11.1) 05/09/17 05:45 Active Medications Albumin Human (Plasbumin-5 -) 200 gm IVPB ONCE ONE Stop: 05/09/17 13:01 Albuterol Sulfate (Ventolin 0.083% Nebulizer Soln -) 1 amp NEB Q6H PRN PRN Reason: SHORT OF BREATH/WHEEZING Chlorhexidine Gluconate (Hibiclens For Decolonization -) 1 applic TP HS LUNA Last Admin: 05/08/17 22:59 Dose: 1 applic Heparin Sodium (Porcine) (Heparin -) 5,000 unit SQ TID LUNA Last Admin: 05/09/17 06:05 Dose: 5,000 unit Hydromorphone HCl (Dilaudid Injection -) 0.5 mg IVPUSH Q4H PRN PRN Reason: Pain 4-6 Hydromorphone HCl (Dilaudid Injection -) 1 mg IVPUSH Q4H PRN PRN Reason: Pain >6 Last Admin: 05/09/17 07:35 Dose: 1 mg Insulin Human Regular 100 (units/ Sodium Chloride) 100 mls @ 12.42 mls/hr IVPB TITR LUNA; 0.1 UNITS/KG/HR PRN Reason: Protocol Last Admin: 05/09/17 06:24 Dose: 6 mls/hr Dextrose/Sodium Chloride (D5-Ns -) 1,000 mls @ 125 mls/hr IV ASDIR LUNA Last Admin: 05/08/17 22:59 Dose: 125 mls/hr Sodium Phosphate 30 mm/ Sodium (Chloride) 260 mls @ 62.5 mls/hr IVPB ONCE ONE Stop: 05/09/17 13:15 Last Admin: 05/09/17 09:49 Dose: 62.5 mls/hr Fentanyl 500 mcg/ Dextrose 100 mls @ 15 mls/hr IJ TITR LUNA PRN Reason: 75 MCG/HR Midazolam HCl (Versed -) 4 mg IVPUSH Q2H PRN PRN Reason: AGITATION Mupirocin (Bactroban Ointment (For Decolonization) -) 1 applic NS BID LUNA Stop: 05/13/17 21:59 Last Admin: 05/08/17 23:29 Dose: 1 applic Vital Signs Temp 97.4 F L 05/09/17 08:00 Pulse 128 H 05/09/17 10:00 Resp 44 H 05/09/17 10:00 BP 84/63 05/09/17 10:00 Pulse Ox 94 L 05/08/17 22:10 Intake & Output 05/08/17 05/08/17 05/09/17 11:59 23:59 11:59 Intake Total 3148 Output Total 0 Balance 3148 Weight 120.882 kg 120.565 kg Intake: IV 3148 NOVOLIN R VIAL *For 54 IVPUSH or IV DRIP Only* 100 UNITS In Normal Saline - 99 ml @ 0.1 UNITS/KG/HR 12.42 mls/hr IVPB TITR LUNA Rx#: [id number] D5-Ns - 1,000 ml @ 125 1094 mls/hr IV ASDIR LUNA Rx#: [id number] Normal Saline - 1,000 ml 1000 @ 1000 mls/hr IV ASDIR STA Rx#:[id number] Normal Saline - 1,000 ml 1000 @ 1000 mls/hr IV ASDIR STA Rx#:[id number] IVPB 0 Oral 0 Output: Emesis 0 Other: Voiding Method Bedpan # Unmeasured Voids Void 2 Bowel Movement No Height 5 ft 4 in Body Mass Index (BMI) 45.7 Weight Measurement Method Built in Bedscale Built in Bedscale CBCD WBC 7.9 K/mm3 (4.0-10.0) D 05/09/17 05:45 RBC 6.00 M/mm3 (3.60-5.2) H 05/09/17 05:45 Hgb 16.0 GM/dL (10.7-15.3) H 05/09/17 05:45 Hct 46.4 % (32.4-45.2) H 05/09/17 05:45 MCV 77.2 fl (80-96) L 05/09/17 05:45 MCHC 34.5 g/dl (32.0-36.0) 05/09/17 05:45 RDW 16.1 % (11.6-15.6) H 05/09/17 05:45 Plt Count 349 K/MM3 (134-434) 05/09/17 05:45 MPV 9.4 fl (7.5-11.1) 05/09/17 05:45 CMP Sodium 127 mmol/L (136-145) L 05/09/17 05:45 Potassium 4.8 mmol/L (3.5-5.1) 05/09/17 05:45 Chloride 93 mmol/L (98-107) L 05/09/17 05:45 Carbon Dioxide 18 mmol/L (21-32) L 05/09/17 05:45 Anion Gap 16 (8-16) 05/09/17 05:45 BUN 15 mg/dL (7-18) D 05/09/17 05:45 Creatinine 1.6 mg/dL (0.55-1.02) H D 05/09/17 05:45 Creat Clearance w eGFR > 60 (>60) 05/08/17 15:15 Calcium 21.6 mg/dL (8.5-10.1) H* 05/09/17 05:45 Total Bilirubin 1.1 mg/dL (0.2-1.0) H 05/09/17 05:45 AST 61 U/L (15-37) H D 05/09/17 05:45 ALT 61 U/L (12-78) 05/09/17 05:45 Alkaline Phosphatase 53 U/L (45-117) 05/09/17 05:45 Total Protein 5.7 g/dl (6.4-8.2) L 05/09/17 05:45 Albumin 2.1 g/dl (3.4-5.0) L 05/09/17 05:45 Hepatic Panel Total Bilirubin 1.1 mg/dL (0.2-1.0) H 05/09/17 05:45 Direct Bilirubin 0.3 mg/dL (0.0-0.2) H D 05/09/17 05:45 AST 61 U/L (15-37) H D 05/09/17 05:45 ALT 61 U/L (12-78) 05/09/17 05:45 Alkaline Phosphatase 53 U/L (45-117) 05/09/17 05:45 Albumin 2.1 g/dl (3.4-5.0) L 05/09/17 05:45 Abnormal Lab Results 05/08/17 05/08/17 05/08/17 15:15 15:15 15:15 WBC 13.1 H RBC 5.71 H Hgb Hct MCV 77.2 L RDW Neutrophils % 84.2 H Sodium 123 L* Potassium Chloride 88 L Carbon Dioxide 17 L Anion Gap 18 H Creatinine Random Glucose 567 H* Lactic Acid Calcium Phosphorus Magnesium Total Bilirubin 1.1 H Direct Bilirubin AST LD Total Total Protein Albumin 2.8 L Triglycerides Cholesterol Total LDL Cholesterol Total Amylase Lipase 82331 H Urine Protein Urine Glucose (UA) Urine Ketones Urine Blood Acetone, Qual 05/08/17 05/08/17 05/08/17 15:15 17:45 18:40 WBC RBC Hgb Hct MCV RDW Neutrophils % Sodium 123 L* Potassium Chloride 90 L Carbon Dioxide 18 L Anion Gap Creatinine Random Glucose 552 H* Lactic Acid Calcium Phosphorus Magnesium Total Bilirubin Direct Bilirubin AST LD Total Total Protein Albumin Triglycerides Cholesterol Total LDL Cholesterol Total Amylase Lipase Urine Protein 3+ H Urine Glucose (UA) 3+ H Urine Ketones 2+ H Urine Blood 1+ H Acetone, Qual Negative L 05/08/17 05/08/17 05/09/17 19:00 19:00 00:30 WBC RBC Hgb Hct MCV RDW Neutrophils % Sodium Potassium Chloride Carbon Dioxide Anion Gap Creatinine Random Glucose Lactic Acid 2.1 H* Calcium Phosphorus Magnesium Total Bilirubin Direct Bilirubin AST LD Total Total Protein 6.2 L Albumin 2.6 L Triglycerides 6972 H Cholesterol 917 H* Total LDL Cholesterol 127 H Total Amylase Lipase Urine Protein Urine Glucose (UA) Urine Ketones Urine Blood Acetone, Qual 05/09/17 05/09/17 05/09/17 00:30 00:56 05:45 WBC RBC 6.00 H Hgb 16.0 H Hct 46.4 H MCV 77.2 L RDW 16.1 H Neutrophils % Sodium 126 L Potassium 5.2 H Chloride 94 L Carbon Dioxide 17 L Anion Gap Creatinine Random Glucose 388 H* D Lactic Acid Calcium Phosphorus Magnesium Total Bilirubin Direct Bilirubin AST LD Total 320 H Total Protein Albumin Triglycerides Cholesterol Total LDL Cholesterol Total Amylase Lipase Urine Protein Urine Glucose (UA) Urine Ketones Urine Blood Acetone, Qual 05/09/17 05/09/17 05:45 05:45 WBC RBC Hgb Hct MCV RDW Neutrophils % Sodium 127 L Potassium Chloride 93 L Carbon Dioxide 18 L Anion Gap Creatinine 1.6 H D Random Glucose 373 H* Lactic Acid Calcium 21.6 H* Phosphorus 0.6 L* Magnesium 1.2 L Total Bilirubin 1.1 H Direct Bilirubin 0.3 H D AST 61 H D LD Total 438 H D Total Protein 5.7 L Albumin 2.1 L Triglycerides Cholesterol 973 H* Total LDL Cholesterol Total Amylase 481 H Lipase 8812 H Urine Protein Urine Glucose (UA) Urine Ketones Urine Blood Acetone, Qual AB.20/39/84 on AC/24/400/100/12 (p:f 84 c/f severe ARDS) CXR: diffuse opacity c/w ARDS, RIJ trialysis, ETT in good position ABD US: pending CTAP: report reviewed PE: Gen: awake, alert, in resp distress HEENT: PERRL, No JVP PULM: diffuse crackles, accessory muscle use, no wheezes CV: tachy, regular, no m/r/g appreciated ABD: obese, distended, diffusely painful to palpation EXT: trace edema Neuro: non-focal Problem List - Problems (1) Pancreatitis Code(s): K85.90 - ACUTE PANCREATITIS WITHOUT NECROSIS OR INFECTION, UNSP (2) DKA (diabetic ketoacidoses) Code(s): E13.10 - OTH DIABETES MELLITUS WITH KETOACIDOSIS WITHOUT COMA Assessment/Plan 27 yo woman morbid obesity, HTN, p/w abdominal pain, nausea and vomiting found to have DKA and pancreatitis silvio 2/2 hyperlipidemia/triglyceridemia c/b ARDS , ABBEY, -Intubate, lung protective ventilation strategies (6cc/kg, pPlat < 25, high PEEP ) -sedate for vent synchrony (NO Propofol---> fent gtt, Versed pushes) -urgent plasmaphereis---> heme consulted by hospitalist service, greatly appreciated -may need transfer to Tertiary care if pheresis does not stablize worsening MSOF. -renal consult -NPO, post plyoric feeding once stablized -Abd ultrasound pending -IVF as able, need to minimize given ARDS -trend lipase, LDH and LFT for 48hrs, Masha score -Insulin gtt for BGL < 250, cont D5, monitor for AG -DVT and Stress Ulcer prophylaxis All Active Problems Resp Failure/ARDS DKA (diabetic ketoacidoses) (Acute) Pancreatitis (Acute) Denis Corbett ACNP 45min CCT, not including procedures
[2017-05-09 10:40] LABS: ANION GAP 13 (8-16); CO2 17 mmol/L (21-32)
--- NOTE | 2017-05-09 10:52 | EKG ---
Test Reason : Blood Pressure : / mmHG Vent. Rate : 129 BPM Atrial Rate : 129 BPM P-R Int : 126 ms QRS Dur : 080 ms QT Int : 326 ms P-R-T Axes : 042 -21 003 degrees QTc Int : 477 ms SINUS TACHYCARDIA POSSIBLE LEFT ATRIAL ENLARGEMENT NONSPECIFIC ST ABNORMALITY ABNORMAL ECG WHEN COMPARED WITH ECG OF 08-MAY-2017 15:56, ST NOW DEPRESSED IN INFERIOR LEADS CLINICAL CORRELATION IS RECOMMENDED Confirmed by ANNA ORELLANA, GENARO ([id number]) on 05/09/2017 10:52:28 AM Referred By: Confirmed By:GENARO CASTILLO MD
--- NOTE | 2017-05-09 10:58 | EKG ---
Test Reason : Blood Pressure : / mmHG Vent. Rate : 111 BPM Atrial Rate : 111 BPM P-R Int : 116 ms QRS Dur : 084 ms QT Int : 376 ms P-R-T Axes : 037 -25 013 degrees QTc Int : 511 ms SINUS TACHYCARDIA OTHERWISE NORMAL ECG NO PREVIOUS ECGS AVAILABLE BASELINE ARTIFACT Confirmed by ANNA ORELLANA, GENARO ([id number]) on 05/09/2017 10:58:19 AM Referred By: Confirmed By:GENARO CASTILLO MD
[2017-05-09 11:02] LABS: GLUCOSE,RANDOM 330 mg/dL (74-106)
[2017-05-09 11:03] LABS: PHOSPHOROUS 1.1 mg/dL (2.5-4.9)
[2017-05-09 11:05] LABS: ARTERIAL BLD GAS O2 SATURATION 94.4 % (90-98.9); ARTERIAL BLOOD GAS BASE EXCESS -12.6 meq/l (-2-2); ARTERIAL BLOOD GAS HCO3 14.8 meq/L (22-26)
[2017-05-09 11:06] LABS: ALLENS TEST POSITIVE; ART PUNCT SITE RIGHT BRACHIAL; LPM/O2% 100%; MECH. VENT. Y; PT. ON O2? YES; TYPE OF O2 VENT; VENT RATE 24; VT/PRESS 400
[2017-05-09] MEDS: MIDAZOLAM HCL 2 MG/2 ML SINGLE DOSE VIAL IVPUSH PRN ×2 (11:09→14:00)
[2017-05-09] MEDS: FENTANYL INJECTION 500 MCG in DEXTROSE 5%-WATER - 90 ML IJ SCH (11:10)
[2017-05-09] MEDS: MUPIROCIN 2% TOPICAL OINTMENT FOR DECOLONIZATION NS SCH ×2 (11:11→22:43)
[2017-05-09 11:32] LABS: CALCIUM < 5.0 mg/dL (8.5-10.1)
[2017-05-09] MEDS ORDERED: PANTOPRAZOLE SODIUM 40 MG VIAL IVPUSH ONE ×2 (11:45→17:30)
[2017-05-09] MEDS ORDERED: MIDAZOLAM HCL 2 MG/2 ML SINGLE DOSE VIAL ONE (12:12)
[2017-05-09 12:18] LABS: VENOUS BLOOD GAS HCO3 17.8 meq/L (19-25); VENOUS PH 7.13 (7.32-7.42)
[2017-05-09] MEDS ORDERED: CALCIUM GLUCONATE 10% - 1,000 MG/10 ML VIAL IVPB ONE ×5 (12:30→22:02)
[2017-05-09] MEDS ORDERED: ROCURONIUM BROMIDE 50 MG/5 ML VIAL IV ONE ×2 (12:40→16:21)
--- NOTE | 2017-05-09 12:51 | CONSULT ---
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 Consult requested regarding apheresis for hypertriglyderedemia. - History Source History Provided By: Family Member, Medical Record, Caregiver Limitations to Obtaining History: Intubated - Past Medical History Cardio/Vascular: Yes: HTN Pulmonary: Yes: Bronchitis - Past Surgical History Past Surgical History: Yes: Cholecystectomy - Alcohol/Substance Use Hx Alcohol Use: No - Smoking History Smoking history: Never smoked Have you smoked in the past 12 months: No - Social History Usual Living Arrangement: With Spouse ADL: Independent Home Medications - Allergies Allergies/Adverse Reactions: Allergies Allergy/AdvReac Type Severity Reaction Status Date / Time iodine Allergy Swelling Verified 05/08/17 14:43 latex Allergy Rash Verified 05/08/17 14:43 - Home Medications Home Medications: Ambulatory Orders Irbesartan [Avapro] 300 mg PO DAILY 05/08/17 Family Disease History - Family Disease History Family Disease History: Other: Mother, Brother Other Family History: Multiple members with dyspilidemias reported. Physical Exam Vital Signs: Vital Signs Temperature 97.4 F L 05/09/17 08:00 Pulse Rate 141 H 05/09/17 12:00 Respiratory Rate 44 H 05/09/17 12:00 Blood Pressure 90/55 05/09/17 12:00 O2 Sat by Pulse Oximetry (%) 97 05/09/17 10:15 Constitutional: Yes: Well Nourished, Obese Respiratory: Yes: Intubated Neurological: Yes: Other (Sedated.) Labs: CBC, BMP 05/09/17 05:45 05/09/17 05:45 Assessment/Plan History as documented. Utility of apheresis in this context supported by case series and strong anecdotal evidence. See no contraindication. Recommend input from endocrinology. At time of writing, procedure has been appropriately set by primary team, in conjunction with [facility] [place], and is pending. Patient critically ill. At high risk for consumptive coagulopathy. Monitor PT/PTT/fibrinogen. No immediate role for hematology at this time, but will continue to follow with you. Please call if any questions or concerns.
[2017-05-09] MEDS ORDERED: SODIUM BICARBONATE 8.4% - 50 ML ONE ×2 (13:03→13:14)
[2017-05-09] MEDS ORDERED: PHENYLEPHRINE HCL 10 MG/1 ML SINGLE DOSE VIAL ONE ×2 (13:23→15:56)
--- NOTE | 2017-05-09 13:28 | CON.GI ---
Consult Consult Specialty:: GI Referred by:: Service - History of Present Illness History of Present Illness: The patient is seen in the ICU. Intubated. A 27 yo female admitted via ED for vomiting and abdominal pain, 04/27, started acutely yesterday. Non-bilious emessis, no hematochezia, melena, or abiel blood in stool reported. No fever. Came from [place] 3 days ago. PMH significant for obesity, bronchitis and HTN. Subsequently diagnosed with hyperglycemia and acute pancreatitis. Initial work up revealed A CT scan findings consistent with pancreatitis, s/p cholecystectomy. Triglycerides 6972, Glucose >500, Lipase >59322, Ketones in urine. Aceton negative. Normal liver chemistry, ALP, hgb, hct, and bilirubin. Urince HCG negative. Insulin IV and acute pancreatitis treatment was initiated however her clinical condition deteriorated and the patient was intubated. - History Source History Provided By: Medical Record Limitations to Obtaining History: Clinical Condition - Past Medical History Cardio/Vascular: Yes: HTN Pulmonary: Yes: Bronchitis - Past Surgical History Past Surgical History: Yes: Cholecystectomy - Alcohol/Substance Use Hx Alcohol Use: No - Smoking History Smoking history: Never smoked Have you smoked in the past 12 months: No - Social History Usual Living Arrangement: With Spouse ADL: Independent Home Medications - Allergies Allergies/Adverse Reactions: Allergies Allergy/AdvReac Type Severity Reaction Status Date / Time iodine Allergy Swelling Verified 05/08/17 14:43 latex Allergy Rash Verified 05/08/17 14:43 - Home Medications Home Medications: Ambulatory Orders Irbesartan [Avapro] 300 mg PO DAILY 05/08/17 Family Disease History - Family Disease History Family History: Unable to Obtain Family Disease History: Other: Mother, Brother Other Family History: Multiple members with dyspilidemias reported. Review of Systems Unable to obtain ROS, reason: see HPI, ED and H&P Physical Exam-GI Vital Signs: Vital Signs Temperature 97.4 F L 05/09/17 08:00 Pulse Rate 141 H 05/09/17 12:00 Respiratory Rate 44 H 05/09/17 12:00 Blood Pressure 90/55 05/09/17 12:00 O2 Sat by Pulse Oximetry (%) 97 05/09/17 10:15 Vital Signs (72 hours) 05/08/17 05/08/17 05/08/17 14:37 20:05 22:00 Temperature 97.6 F 98 F 98.7 F Pulse Rate 122 H Pulse Rate [ 130 H 128 H Right Radial] Respiratory 20 22 28 H Rate Blood Pressure 136/99 Blood Pressure 121/73 111/68 [Left Arm] O2 Sat by Pulse 99 94 L 98 Oximetry (%) 05/08/17 05/08/17 05/09/17 22:10 22:20 00:00 Temperature 98.9 F Pulse Rate 123 H 118 H Pulse Rate [ Right Radial] Respiratory 27 H 27 H 25 H Rate Blood Pressure 120/82 112/68 Blood Pressure [Left Arm] O2 Sat by Pulse 94 L Oximetry (%) 05/09/17 05/09/17 05/09/17 02:00 04:00 06:00 Temperature 98.5 F 98.1 F Pulse Rate 124 H 126 H 129 H Pulse Rate [ Right Radial] Respiratory 30 H 36 H 40 H Rate Blood Pressure 114/92 104/79 111/68 Blood Pressure [Left Arm] O2 Sat by Pulse Oximetry (%) 05/09/17 05/09/17 05/09/17 08:00 10:00 10:15 Temperature 97.4 F L Pulse Rate 138 H 128 H 126 H Pulse Rate [ Right Radial] Respiratory 44 H 44 H 24 Rate Blood Pressure 99/66 84/63 Blood Pressure [Left Arm] O2 Sat by Pulse 97 Oximetry (%) 05/09/17 05/09/17 11:44 12:00 Temperature Pulse Rate 141 H Pulse Rate [ Right Radial] Respiratory 29 H 44 H Rate Blood Pressure 90/55 Blood Pressure [Left Arm] O2 Sat by Pulse Oximetry (%) Labs: CBC, BMP 05/09/17 05:45 05/09/17 05:45 Laboratory Tests 05/08/17 05/08/17 05/08/17 15:15 15:15 15:15 WBC 13.1 H RBC 5.71 H Hgb 14.8 Hct 44.1 MCV 77.2 L MCH 25.8 MCHC 33.5 RDW 15.6 Plt Count 355 MPV 9.8 Neutrophils % 84.2 H Lymphocytes % 10.1 Monocytes % 5.0 Eosinophils % 0.2 Basophils % 0.5 Puncture Site ABG pH ABG pCO2 at Pt Temp ABG pO2 at Pt Temp ABG HCO3 ABG O2 Sat (Measured) ABG O2 Content ABG Base Excess Giovani Test VBG pH POC VBG pCO2 POC VBG pO2 Mixed VBG HCO3 O2 Delivery Device Oxygen Flow Rate Vent Mode Vent Rate Mechanical Rate PEEP Pressure Support Vent Sodium 123 L* Potassium 4.1 Chloride 88 L Carbon Dioxide 17 L Anion Gap 18 H BUN TNP Creatinine 0.7 Creat Clearance w eGFR > 60 POC Glucometer Random Glucose 567 H* Hemoglobin A1c % Lactic Acid Calcium TNP Phosphorus Magnesium Total Bilirubin 1.1 H Direct Bilirubin AST TNP ALT TNP Alkaline Phosphatase TNP LD Total Total Protein TNP Albumin 2.8 L Triglycerides Cholesterol Total LDL Cholesterol HDL Cholesterol Total Amylase Lipase 94677 H TSH Free T4 Serum , Qual Urine Color Urine Appearance Urine pH Ur Specific [place] Urine Protein Urine Glucose (UA) Urine Ketones Urine Blood Urine Nitrite Urine Bilirubin Urine Urobilinogen Ur Leukocyte Esterase Urine RBC Urine WBC Ur Epithelial Cells Urine HCG, Qual Alcohol, Quantitative Acetone, Qual Blood Type 05/08/17 05/08/17 05/08/17 15:15 15:15 17:45 WBC RBC Hgb Hct MCV MCH MCHC RDW Plt Count MPV Neutrophils % Lymphocytes % Monocytes % Eosinophils % Basophils % Puncture Site ABG pH ABG pCO2 at Pt Temp ABG pO2 at Pt Temp ABG HCO3 ABG O2 Sat (Measured) ABG O2 Content ABG Base Excess Giovani Test VBG pH POC VBG pCO2 POC VBG pO2 Mixed VBG HCO3 O2 Delivery Device Oxygen Flow Rate Vent Mode Vent Rate Mechanical Rate PEEP Pressure Support Vent Sodium Potassium Chloride Carbon Dioxide Anion Gap BUN Creatinine Creat Clearance w eGFR POC Glucometer Random Glucose Hemoglobin A1c % Lactic Acid Calcium Phosphorus Magnesium Total Bilirubin Direct Bilirubin AST ALT Alkaline Phosphatase LD Total Total Protein Albumin Triglycerides Cholesterol Total LDL Cholesterol HDL Cholesterol Total Amylase Lipase TSH Free T4 Serum , Qual Negative Urine Color Urine Appearance Urine pH Ur Specific [place] Urine Protein Urine Glucose (UA) Urine Ketones Urine Blood Urine Nitrite Urine Bilirubin Urine Urobilinogen Ur Leukocyte Esterase Urine RBC Urine WBC Ur Epithelial Cells Urine HCG, Qual Negative Alcohol, Quantitative Acetone, Qual Negative L Blood Type 05/08/17 05/08/17 05/08/17 17:45 18:40 19:00 WBC RBC Hgb Hct MCV MCH MCHC RDW Plt Count MPV Neutrophils % Lymphocytes % Monocytes % Eosinophils % Basophils % Puncture Site ABG pH ABG pCO2 at Pt Temp ABG pO2 at Pt Temp ABG HCO3 ABG O2 Sat (Measured) ABG O2 Content ABG Base Excess Giovani Test VBG pH POC VBG pCO2 POC VBG pO2 Mixed VBG HCO3 O2 Delivery Device Oxygen Flow Rate Vent Mode Vent Rate Mechanical Rate PEEP Pressure Support Vent Sodium 123 L* Potassium 4.4 Chloride 90 L Carbon Dioxide 18 L Anion Gap 15 BUN 7 Creatinine 0.7 Creat Clearance w eGFR POC Glucometer Random Glucose 552 H* Hemoglobin A1c % Lactic Acid Calcium TNP Phosphorus Magnesium Total Bilirubin 1.0 Direct Bilirubin 0.1 AST 34 ALT 69 Alkaline Phosphatase 60 LD Total Total Protein 6.2 L Albumin 2.6 L Triglycerides Cholesterol Total LDL Cholesterol HDL Cholesterol Total Amylase Lipase TSH Free T4 Serum , Qual Urine Color Ltyellow Urine Appearance Slcloudy Urine pH 5.0 Ur Specific [place] 1.015 Urine Protein 3+ H Urine Glucose (UA) 3+ H Urine Ketones 2+ H Urine Blood 1+ H Urine Nitrite Negative Urine Bilirubin Negative Urine Urobilinogen Negative Ur Leukocyte Esterase Negative Urine RBC 3 Urine WBC 2 Ur Epithelial Cells Rare Urine HCG, Qual Alcohol, Quantitative Acetone, Qual Blood Type 05/08/17 05/08/17 05/08/17 19:00 20:24 21:58 WBC RBC Hgb Hct MCV MCH MCHC RDW Plt Count MPV Neutrophils % Lymphocytes % Monocytes % Eosinophils % Basophils % Puncture Site ABG pH ABG pCO2 at Pt Temp ABG pO2 at Pt Temp ABG HCO3 ABG O2 Sat (Measured) ABG O2 Content ABG Base Excess Giovani Test VBG pH POC VBG pCO2 POC VBG pO2 Mixed VBG HCO3 O2 Delivery Device Oxygen Flow Rate Vent Mode Vent Rate Mechanical Rate PEEP Pressure Support Vent Sodium Potassium Chloride Carbon Dioxide Anion Gap BUN Creatinine Creat Clearance w eGFR POC Glucometer [phone] Random Glucose Hemoglobin A1c % Lactic Acid Calcium Phosphorus Magnesium Total Bilirubin Direct Bilirubin AST ALT Alkaline Phosphatase LD Total Total Protein Albumin Triglycerides 6972 H Cholesterol 917 H* Total LDL Cholesterol 127 H HDL Cholesterol 49 Total Amylase Lipase TSH Free T4 Serum , Qual Urine Color Urine Appearance Urine pH Ur Specific [place] Urine Protein Urine Glucose (UA) Urine Ketones Urine Blood Urine Nitrite Urine Bilirubin Urine Urobilinogen Ur Leukocyte Esterase Urine RBC Urine WBC Ur Epithelial Cells Urine HCG, Qual Alcohol, Quantitative Acetone, Qual Blood Type 05/09/17 05/09/17 05/09/17 00:30 00:30 00:30 WBC RBC Hgb Hct MCV MCH MCHC RDW Plt Count MPV Neutrophils % Lymphocytes % Monocytes % Eosinophils % Basophils % Puncture Site ABG pH ABG pCO2 at Pt Temp ABG pO2 at Pt Temp ABG HCO3 ABG O2 Sat (Measured) ABG O2 Content ABG Base Excess Giovani Test VBG pH POC VBG pCO2 POC VBG pO2 Mixed VBG HCO3 O2 Delivery Device Oxygen Flow Rate Vent Mode Vent Rate Mechanical Rate PEEP Pressure Support Vent Sodium Potassium Chloride Carbon Dioxide Anion Gap BUN Creatinine Creat Clearance w eGFR POC Glucometer Random Glucose Hemoglobin A1c % Lactic Acid 2.1 H* Calcium Phosphorus Magnesium Total Bilirubin Direct Bilirubin AST ALT Alkaline Phosphatase LD Total 320 H Total Protein Albumin Triglycerides Cholesterol Total LDL Cholesterol HDL Cholesterol Total Amylase Lipase TSH Free T4 Serum , Qual Urine Color Urine Appearance Urine pH Ur Specific [place] Urine Protein Urine Glucose (UA) Urine Ketones Urine Blood Urine Nitrite Urine Bilirubin Urine Urobilinogen Ur Leukocyte Esterase Urine RBC Urine WBC Ur Epithelial Cells Urine HCG, Qual Alcohol, Quantitative < 5.0 Acetone, Qual Blood Type 05/09/17 05/09/17 05/09/17 00:56 05:45 05:45 WBC 7.9 D RBC 6.00 H Hgb 16.0 H Hct 46.4 H MCV 77.2 L MCH 26.7 MCHC 34.5 RDW 16.1 H Plt Count 349 MPV 9.4 Neutrophils % Lymphocytes % Monocytes % Eosinophils % Basophils % Puncture Site ABG pH ABG pCO2 at Pt Temp ABG pO2 at Pt Temp ABG HCO3 ABG O2 Sat (Measured) ABG O2 Content ABG Base Excess Giovani Test VBG pH POC VBG pCO2 POC VBG pO2 Mixed VBG HCO3 O2 Delivery Device Oxygen Flow Rate Vent Mode Vent Rate Mechanical Rate PEEP Pressure Support Vent Sodium 126 L 127 L Potassium 5.2 H 4.8 Chloride 94 L 93 L Carbon Dioxide 17 L 18 L Anion Gap 15 16 BUN 12 D 15 D Creatinine 1.0 D 1.6 H D Creat Clearance w eGFR POC Glucometer Random Glucose 388 H* D 373 H* Hemoglobin A1c % Lactic Acid Calcium TNP 21.6 H* Phosphorus 0.6 L* Magnesium 1.2 L Total Bilirubin 1.1 H Direct Bilirubin 0.3 H D AST 61 H D ALT 61 Alkaline Phosphatase 53 LD Total 438 H D Total Protein 5.7 L Albumin 2.1 L Triglycerides Cholesterol Total LDL Cholesterol HDL Cholesterol Total Amylase 481 H Lipase 8812 H TSH Free T4 Serum , Qual Urine Color Urine Appearance Urine pH Ur Specific [place] Urine Protein Urine Glucose (UA) Urine Ketones Urine Blood Urine Nitrite Urine Bilirubin Urine Urobilinogen Ur Leukocyte Esterase Urine RBC Urine WBC Ur Epithelial Cells Urine HCG, Qual Alcohol, Quantitative Acetone, Qual Blood Type 05/09/17 05/09/17 05/09/17 05:45 05:45 05:45 WBC RBC Hgb Hct MCV MCH MCHC RDW Plt Count MPV Neutrophils % Lymphocytes % Monocytes % Eosinophils % Basophils % Puncture Site ABG pH ABG pCO2 at Pt Temp ABG pO2 at Pt Temp ABG HCO3 ABG O2 Sat (Measured) ABG O2 Content ABG Base Excess Giovani Test VBG pH POC VBG pCO2 POC VBG pO2 Mixed VBG HCO3 O2 Delivery Device Oxygen Flow Rate Vent Mode Vent Rate Mechanical Rate PEEP Pressure Support Vent Sodium Potassium Chloride Carbon Dioxide Anion Gap BUN Creatinine Creat Clearance w eGFR POC Glucometer Random Glucose Hemoglobin A1c % 10.7 H Lactic Acid Calcium Phosphorus Magnesium Total Bilirubin Direct Bilirubin AST ALT Alkaline Phosphatase LD Total Total Protein Albumin Triglycerides Cholesterol Total LDL Cholesterol HDL Cholesterol Total Amylase Lipase TSH 0.56 Free T4 0.76 Serum , Qual Urine Color Urine Appearance Urine pH Ur Specific [place] Urine Protein Urine Glucose (UA) Urine Ketones Urine Blood Urine Nitrite Urine Bilirubin Urine Urobilinogen Ur Leukocyte Esterase Urine RBC Urine WBC Ur Epithelial Cells Urine HCG, Qual Alcohol, Quantitative Acetone, Qual Blood Type 05/09/17 05/09/17 05/09/17 05:45 05:45 06:18 WBC RBC Hgb Hct MCV MCH MCHC RDW Plt Count MPV Neutrophils % Lymphocytes % Monocytes % Eosinophils % Basophils % Puncture Site ABG pH ABG pCO2 at Pt Temp ABG pO2 at Pt Temp ABG HCO3 ABG O2 Sat (Measured) ABG O2 Content ABG Base Excess Giovani Test VBG pH POC VBG pCO2 POC VBG pO2 Mixed VBG HCO3 O2 Delivery Device Oxygen Flow Rate Vent Mode Vent Rate Mechanical Rate PEEP Pressure Support Vent Sodium 131 L Potassium 5.3 H Chloride 101 Carbon Dioxide 17 L Anion Gap 13 BUN 15 Creatinine 2.0 H D Creat Clearance w eGFR POC Glucometer [phone] Random Glucose 330 H* Hemoglobin A1c % Lactic Acid Calcium < 5.0 L* D Phosphorus 1.1 L* D Magnesium 2.0 D Total Bilirubin Direct Bilirubin AST ALT Alkaline Phosphatase LD Total Total Protein Albumin Triglycerides > 1000 H D Cholesterol 973 H* Total LDL Cholesterol 90 HDL Cholesterol 48 Total Amylase Lipase TSH Free T4 Serum , Qual Urine Color Urine Appearance Urine pH Ur Specific [place] Urine Protein Urine Glucose (UA) Urine Ketones Urine Blood Urine Nitrite Urine Bilirubin Urine Urobilinogen Ur Leukocyte Esterase Urine RBC Urine WBC Ur Epithelial Cells Urine HCG, Qual Alcohol, Quantitative Acetone, Qual Blood Type 05/09/17 05/09/17 05/09/17 06:54 11:00 12:00 WBC RBC Hgb Hct MCV MCH MCHC RDW Plt Count MPV Neutrophils % Lymphocytes % Monocytes % Eosinophils % Basophils % Puncture Site Right brachial ABG pH 7.20 L* ABG pCO2 at Pt Temp 39.3 ABG pO2 at Pt Temp 84.0 ABG HCO3 14.8 L* ABG O2 Sat (Measured) 94.4 ABG O2 Content 20.1 ABG Base Excess -12.6 L* Giovani Test Positive VBG pH POC VBG pCO2 POC VBG pO2 Mixed VBG HCO3 O2 Delivery Device Vent Oxygen Flow Rate 100% Vent Mode A/c Vent Rate 24 Mechanical Rate Y PEEP 12.0 Pressure Support Vent 400 Sodium Potassium Chloride Carbon Dioxide Anion Gap BUN Creatinine Creat Clearance w eGFR POC Glucometer 224.18756 Random Glucose Hemoglobin A1c % Lactic Acid 1.1 Calcium Phosphorus Magnesium Total Bilirubin Direct Bilirubin AST ALT Alkaline Phosphatase LD Total Total Protein Albumin Triglycerides Cholesterol Total LDL Cholesterol HDL Cholesterol Total Amylase Lipase TSH Free T4 Serum , Qual Urine Color Urine Appearance Urine pH Ur Specific [place] Urine Protein Urine Glucose (UA) Urine Ketones Urine Blood Urine Nitrite Urine Bilirubin Urine Urobilinogen Ur Leukocyte Esterase Urine RBC Urine WBC Ur Epithelial Cells Urine HCG, Qual Alcohol, Quantitative Acetone, Qual Blood Type 05/09/17 05/09/17 12:15 12:59 WBC RBC Hgb Hct MCV MCH MCHC RDW Plt Count MPV Neutrophils % Lymphocytes % Monocytes % Eosinophils % Basophils % Puncture Site ABG pH ABG pCO2 at Pt Temp ABG pO2 at Pt Temp ABG HCO3 ABG O2 Sat (Measured) ABG O2 Content ABG Base Excess Giovani Test VBG pH 7.13 L* POC VBG pCO2 55.4 H POC VBG pO2 39.0 Mixed VBG HCO3 17.8 L O2 Delivery Device Oxygen Flow Rate Vent Mode Vent Rate Mechanical Rate PEEP Pressure Support Vent Sodium Potassium Chloride Carbon Dioxide Anion Gap BUN Creatinine Creat Clearance w eGFR POC Glucometer Random Glucose Hemoglobin A1c % Lactic Acid Calcium Phosphorus Magnesium Total Bilirubin Direct Bilirubin AST ALT Alkaline Phosphatase LD Total Total Protein Albumin Triglycerides Cholesterol Total LDL Cholesterol HDL Cholesterol Total Amylase Lipase TSH Free T4 Serum , Qual Urine Color Urine Appearance Urine pH Ur Specific [place] Urine Protein Urine Glucose (UA) Urine Ketones Urine Blood Urine Nitrite Urine Bilirubin Urine Urobilinogen Ur Leukocyte Esterase Urine RBC Urine WBC Ur Epithelial Cells Urine HCG, Qual Alcohol, Quantitative Acetone, Qual Blood Type A POSITIVE Imaging - Results Cat Scan: Report Reviewed Ultrasound: Report Reviewed Problem List - Problems (1) Multiorgan failure Code(s): PDW5524 - (2) Pancreatitis Code(s): K85.90 - ACUTE PANCREATITIS WITHOUT NECROSIS OR INFECTION, UNSP Qualifiers: Chronicity: acute Pancreatitis type: other Acute pancreatitis complication: unspecified Qualified Code(s): K85.80 - Other acute pancreatitis without necrosis or infection; K85.80 - Other acute pancreatitis without necrosis or infection (3) Hypertriglyceridemia Code(s): E78.1 - PURE HYPERGLYCERIDEMIA (4) Ischemic hepatitis Code(s): K75.9 - INFLAMMATORY LIVER DISEASE, UNSPECIFIED (5) Diabetes mellitus Code(s): E11.9 - TYPE 2 DIABETES MELLITUS WITHOUT COMPLICATIONS (6) Hemodynamic instability Code(s): R09.89 - OTH SYMPTOMS AND SIGNS INVOLVING THE CIRC AND RESP SYSTEMS Assessment/Plan Hypertriglyceridemic, acute, severe pancreatitis, with multiorgan failure, uncontrolled DM. Recently treated for respiratory infection in [place], per history . S/p TPE yesterday. Tg ~700 post exchange today. On insulin drip. Liver chemistry changes from yesterday to today consistent with ischemia. Requires 4 pressors to maintain BP. Concerns for worsened neuro status. Supportive care as per ICU team Tg target below 500, on Insulin drip very poor prognosis
[2017-05-09] MEDS ORDERED: CALCIUM CHLORIDE 1 GM/10 ML *DISP.SYRIN ONE (13:30)
[2017-05-09] MEDS ORDERED: SODIUM BICARBONATE 8.4% 50 MEQ/50 ML VIAL ONE (13:31)
[2017-05-09] MEDS: EPINEPHRINE 1:1,000 - 1,000 MCG in DEXTROSE 5%-WATER - 249 ML IVPB SCH ×2 (13:45→20:00)
[2017-05-09 13:52] LABS: ARTERIAL BLD GAS O2 SATURATION 99.6 % (90-98.9); ARTERIAL BLOOD GAS BASE EXCESS -9.2 meq/l (-2-2); ARTERIAL BLOOD GAS HCO3 17.2 meq/L (22-26)
[2017-05-09 13:53] LABS: ART PUNCT SITE ARTERIAL LINE; ARTERIAL BLOOD GAS pH 7.25 (7.35-7.45)
[2017-05-09 13:54] LABS: LPM/O2% 100%; MECH. VENT. Y; PT. ON O2? YES; TYPE OF O2 VENT; VENT RATE 30; VT/PRESS 350
[2017-05-09] MEDS ORDERED: PIPERACILLIN/TAZOB 4.5 GM/100 ML PRE-DOCKED IVPB ONE (14:00)
[2017-05-09] MEDS ORDERED: PIPERACILLIN/TAZOB 3.375 GM/50 ML PRE-DOCKED IVPB ONE (14:00)
[2017-05-09 14:17] LABS: INR 1.27 (0.82-1.09); PROTHROMBIN TIME (PATIENT) 14.3 SEC (9.98-11.88)
[2017-05-09] MEDS ORDERED: DOXYCYCLINE INJECTION 100 MG in DEXTROSE 5%-WATER - 100 ML IVPB STA (14:25)
[2017-05-09 14:33] LABS: INR 1.27 (0.82-1.09); PROTHROMBIN TIME (PATIENT) 14.3 SEC (9.98-11.88)
[2017-05-09] MEDS ORDERED: DEXTROSE 5%-NORMAL SALINE 1,000 ML IV SCH (14:46)
[2017-05-09 15:04] LABS: MCH 25.9 pg (25.7-33.7); MCHC 33.2 g/dl (32.0-36.0); PLATELET COUNT 274 K/MM3 (134-434); RDW 16.4 % (11.6-15.6); WHITE BLOOD COUNT 9.7 K/mm3 (4.0-10.0)
--- NOTE | 2017-05-09 15:05 | PROC ---
Central Line Insertion Indication: CVP Monitoring, Vasopressor, Other Risks and Benefits Explained: Yes Consent on Chart: Yes Central Line: Triple Lumen Catheter Anesthesia: 1% Lidocaine Sterile Technique: Yes Ultrasound Guided Assistance: Yes Position: Right Femoral Sterile Dressing Applied: Yes
[2017-05-09 15:23] LABS: ALBUMIN 1.3 g/dl (3.4-5.0); AMYLASE 439 U/L (25-115); ANION GAP 13 (8-16); BILIRUBIN,TOTAL 0.5 mg/dL (0.2-1.0); CALCIUM < 5.0 mg/dL (8.5-10.1); CO2 19 mmol/L (21-32); PHOSPHOROUS 3.1 mg/dL (2.5-4.9); TOT PROT 4.2 g/dl (6.4-8.2)
[2017-05-09 15:24] LABS: ALK PHOS 51 U/L (45-117); TROPONIN I 0.21 ng/ml (0.00-0.05)
[2017-05-09 15:26] LABS: BILIRUBIN,DIRECT 0.1 mg/dL (0.0-0.2); MAGNESIUM 1.8 mg/dL (1.8-2.4)
[2017-05-09 15:27] LABS: CPK 323 IU/L (26-192)
[2017-05-09] MEDS ORDERED: ALBUMIN HUMAN 5% 250 ML IV SOLUTION IVPB ONE (15:30)
[2017-05-09 15:37] LABS: GLUCOSE,RANDOM 442 mg/dL (74-106)
[2017-05-09] MEDS ORDERED: CALCIUM CHLORIDE 10% 1 GM/10 ML *VIAL IVPUSH ONE (15:55)
[2017-05-09] MEDS ORDERED: MEROPENEM 500 MG VIAL (RESTRICTED TO ID) IVPB SCH (16:00)
[2017-05-09] MEDS: PHENYLEPHRINE HCL 20,000 MCG in SODIUM CHLORIDE 248 ML IVPB SCH (16:00)
[2017-05-09] MEDS ORDERED: ACETAMINOPHEN 1000 MG/100 ML VIAL (NON FORMULARY) IVPB PRN (16:04)
--- NOTE | 2017-05-09 16:04 | PN ---
Progress Note (short form) - Note Progress Note: Event Note: Pt had acute deterioration today. She developed anuric renal failure, septic shock, ARDS, and MSOF. We made all available efforts to support her. She was intubated, placed on multiple max dose vasopressors (Epi, Norepi, phenylepherine ) and at time required pushes of epinepherine, calcium chloride, and Sodium Bicarb to sustain her (SBP in 40s at times). She required nuanced ARDS ventilation strategies including paralysis and high levels of PEEP. We covered her broadly for GNR sepsis and leptospirosis as she had until two days ago been living in [place] where there is an outbreak of lepto. She is to get urgent plasmapheresis to decrease triglyceride level. Family was updated multiple times. I have call [facility] as I believe she needs a tertiary care center for CVVHD and continued support. CBCD WBC 9.7 K/mm3 (4.0-10.0) 05/09/17 14:15 RBC 5.31 M/mm3 (3.60-5.2) H 05/09/17 14:15 Hgb 13.7 GM/dL (10.7-15.3) D 05/09/17 14:15 Hct 41.5 % (32.4-45.2) 05/09/17 14:15 MCV 78.0 fl (80-96) L 05/09/17 14:15 MCHC 33.2 g/dl (32.0-36.0) 05/09/17 14:15 RDW 16.4 % (11.6-15.6) H 05/09/17 14:15 Plt Count 274 K/MM3 (134-434) D 05/09/17 14:15 MPV 10.0 fl (7.5-11.1) 05/09/17 14:15 CMP Sodium 136 mmol/L (136-145) 05/09/17 14:15 Potassium 4.8 mmol/L (3.5-5.1) 05/09/17 14:15 Chloride 104 mmol/L (98-107) 05/09/17 14:15 Carbon Dioxide 19 mmol/L (21-32) L 05/09/17 14:15 Anion Gap 13 (8-16) 05/09/17 14:15 BUN 18 mg/dL (7-18) 05/09/17 14:15 Creatinine 3.0 mg/dL (0.55-1.02) H D 05/09/17 14:15 Creat Clearance w eGFR > 60 (>60) 05/08/17 15:15 Calcium < 5.0 mg/dL (8.5-10.1) L* 05/09/17 14:15 Total Bilirubin 0.5 mg/dL (0.2-1.0) D 05/09/17 14:15 AST U/L (15-37) 05/09/17 14:15 ALT U/L (12-78) 05/09/17 14:15 Alkaline Phosphatase 51 U/L (45-117) 05/09/17 14:15 Total Protein 4.2 g/dl (6.4-8.2) L D 05/09/17 14:15 Albumin 1.3 g/dl (3.4-5.0) L D 05/09/17 14:15 Hepatic Panel Total Bilirubin 0.5 mg/dL (0.2-1.0) D 05/09/17 14:15 Direct Bilirubin 0.1 mg/dL (0.0-0.2) D 05/09/17 14:15 AST U/L (15-37) 05/09/17 14:15 ALT U/L (12-78) 05/09/17 14:15 Alkaline Phosphatase 51 U/L (45-117) 05/09/17 14:15 Albumin 1.3 g/dl (3.4-5.0) L D 05/09/17 14:15 Triglycerides >6K Lipase 18K Ca++ < 5 CXR reviewed ABXR reviewed Vital Signs Temp 97.4 F L 05/09/17 08:00 Pulse 124 H 05/09/17 17:19 Resp 30 H 05/09/17 17:20 BP 111/70 05/09/17 17:19 Pulse Ox 99 05/09/17 14:18 Intake & Output 05/08/17 05/09/17 05/09/17 23:59 11:59 23:59 Intake Total 3148 6704 Output Total 0 30 Balance 3148 6678 Weight 120.882 kg 120.565 kg 120.565 kg Intake: IV 3148 6054 NOVOLIN R VIAL *For 54 96 IVPUSH or IV DRIP Only* 100 UNITS In Normal Saline - 99 ml @ 0.1 UNITS/KG/HR 12.42 mls/hr IVPB TITR LUNA Rx#: [id number] D5-Ns - 1,000 ml @ 125 1094 750 mls/hr IV ASDIR LUNA Rx#: [id number] Normal Saline - 1,000 ml 1000 2000 @ 1000 mls/hr IV ASDIR STA Rx#:[id number] Normal Saline - 1,000 ml 1000 1000 @ 1000 mls/hr IV ASDIR STA Rx#:[id number] Versed - 100 mg In Normal 4 Saline - 100 ml @ 4 MG/ HR 4 mls/hr IVPB TITR LUNA Rx#:[id number] D5-Ns - 1,000 ml @ 200 400 mls/hr IV ASDIR LUNA Rx#: [id number] Epinephrine 1:1,000 - 1, 500 000 Mcg In D5w - 249 ml @ 0.1 MCG/KG/MIN 180.84 mls/hr IVPB ASDIR LUNA Rx# :[id number] Levophed - 8,000 Mcg In 700 D5w - 492 ml @ 5 MCG/MIN 18.75 mls/hr IV TITR LUNA Rx#:[id number] Jose-Synephrine - 20,000 600 Mcg In Normal Saline - 248 ml @ 100 MCG/MIN 75 mls/hr IVPB ASDIR LUNA Rx# :[id number] Pitressin - 50 Units In 4 Normal Saline - 97.5 ml @ 2 UNITS/HR 4 mls/hr IVPB ASDIR LUNA Rx#: [id number] IVPB 0 650 Oral 0 Output: Urine 30 Void 10 Hugo 20 Emesis 0 Other: Voiding Method Bedpan Bedpan Indwelling Catheter # Unmeasured Voids Void 2 Bowel Movement No No Height 5 ft 4 in 5 ft 4 in Body Mass Index (BMI) 45.7 45.6 Weight Measurement Method Built in [facility] spent directly caring for this patient at bedside with complex decision making for severe multisystem organ failure. Deins Corbett [facility] [id number]
--- NOTE | 2017-05-09 16:45 | CON.NEP ---
Consult - History of Present Illness Chief Complaint: abdominal pain History of Present Illness: Pt is intubated. History from chart This is a 27 yo woman morbidly obese, HTN, recent hospitalization in [place] for bronchitis t/w levaquin and albuterol who presented to ED w/ acute epigastric pain, nausea and vomiting (nonbloody). She denies ever being diagnosed with DM in the past. Labs significant for elevated lipase (23770), AG 18, hyperglycemia (567) w/ ketones and leukocytosis (13.1). Her exam was notable for diffuse abdominal pain. CTAP done showing severly inflamed pancreas w/ fat stranding. Patient given IV fluids and insulin drip started. Patient denies EtOH abuse and has h/o cholecystectomy. She has received a significant amount of volume and is still requiring maximum doses of levophed and epi and phenylephrine. She is sedated and paralyzed and is about to receive apharesis. She has ABBEY and severe hypocalcemia. So nephrology was called. - History Source History Provided By: Medical Record Limitations to Obtaining History: Intubated - Past Medical History Cardio/Vascular: Yes: HTN Pulmonary: Yes: Bronchitis - Past Surgical History Past Surgical History: Yes: Cholecystectomy - Alcohol/Substance Use Hx Alcohol Use: No - Smoking History Smoking history: Never smoked Have you smoked in the past 12 months: No - Social History Usual Living Arrangement: With Spouse ADL: Independent Home Medications - Allergies Allergies/Adverse Reactions: Allergies Allergy/AdvReac Type Severity Reaction Status Date / Time iodine Allergy Swelling Verified 05/08/17 14:43 latex Allergy Rash Verified 05/08/17 14:43 - Home Medications Home Medications: Ambulatory Orders Irbesartan [Avapro] 300 mg PO DAILY 05/08/17 Family Disease History - Family Disease History Family Disease History: Other: Mother, Brother Other Family History: Multiple members with dyspilidemias reported. Review of Systems Unable to obtain ROS, reason: intubated Nephrology Consult - Height Height: 5 ft 4 in - Weight Weight: 265 lb 12.8 oz - BMI Body Mass Index (BMI): 45.6 - Lab Results CBC,BMP: CBC, BMP 05/09/17 14:15 05/09/17 14:15 Laboratory Last Values WBC 9.7 K/mm3 (4.0-10.0) 05/09/17 14:15 RBC 5.31 M/mm3 (3.60-5.2) H 05/09/17 14:15 Hgb 13.7 GM/dL (10.7-15.3) D 05/09/17 14:15 Hct 41.5 % (32.4-45.2) 05/09/17 14:15 MCV 78.0 fl (80-96) L 05/09/17 14:15 MCH 25.9 pg (25.7-33.7) 05/09/17 14:15 MCHC 33.2 g/dl (32.0-36.0) 05/09/17 14:15 RDW 16.4 % (11.6-15.6) H 05/09/17 14:15 Plt Count 274 K/MM3 (134-434) D 05/09/17 14:15 MPV 10.0 fl (7.5-11.1) 05/09/17 14:15 Neutrophils % 84.2 % (42.8-82.8) H 05/08/17 15:15 Lymphocytes % 10.1 % (8-40) 05/08/17 15:15 Monocytes % 5.0 % (3.8-10.2) 05/08/17 15:15 Eosinophils % 0.2 % (0-4.5) 05/08/17 15:15 Basophils % 0.5 % (0-2.0) 05/08/17 15:15 PT with INR 14.30 SEC (9.98-11.88) H 05/09/17 13:00 INR 1.27 (0.82-1.09) H 05/09/17 13:00 Fibrinogen 495.0 mg/dL (238-498) 05/09/17 13:00 Puncture Site Arterial line 05/09/17 13:48 ABG pH 7.25 (7.35-7.45) L 05/09/17 13:48 ABG pCO2 at Pt Temp 40.8 mmHg (35-45) 05/09/17 13:48 ABG pO2 at Pt Temp 236.0 mmHg (80-100) H* 05/09/17 13:48 ABG HCO3 17.2 meq/L (22-26) L 05/09/17 13:48 ABG O2 Sat (Measured) 99.6 % (90-98.9) H* 05/09/17 13:48 ABG O2 Content 17.8 % vol (15-22) 05/09/17 13:48 ABG Base Excess -9.2 meq/l (-2-2) L 05/09/17 13:48 Giovani Test Not applicable 05/09/17 13:48 VBG pH 7.13 (7.32-7.42) L* 05/09/17 12:15 POC VBG pCO2 55.4 mmHg (38-52) H 05/09/17 12:15 POC VBG pO2 39.0 mmHg (28-48) 05/09/17 12:15 Mixed VBG HCO3 17.8 meq/L (19-25) L 05/09/17 12:15 O2 Delivery Device Vent 05/09/17 13:48 Oxygen Flow Rate 100% 05/09/17 13:48 Vent Mode A/c 05/09/17 13:48 Vent Rate 30 05/09/17 13:48 Mechanical Rate Y 05/09/17 13:48 PEEP 12.0 cmH2O 05/09/17 13:48 Pressure Support Vent 350 05/09/17 13:48 Sodium 136 mmol/L (136-145) 05/09/17 14:15 Potassium 4.8 mmol/L (3.5-5.1) 05/09/17 14:15 Chloride 104 mmol/L (98-107) 05/09/17 14:15 Carbon Dioxide 19 mmol/L (21-32) L 05/09/17 14:15 Anion Gap 13 (8-16) 05/09/17 14:15 BUN 18 mg/dL (7-18) 05/09/17 14:15 Creatinine 3.0 mg/dL (0.55-1.02) H D 05/09/17 14:15 Creat Clearance w eGFR > 60 (>60) 05/08/17 15:15 POC Glucometer 224.16730 UNITS (()) 05/09/17 06:54 Random Glucose 442 mg/dL (74-106) H* D 05/09/17 14:15 Hemoglobin A1c % 10.7 % (4.8-6.0) H 05/09/17 05:45 Lactic Acid 1.1 mmol/L (0.4-2.0) 05/09/17 12:00 Calcium < 5.0 mg/dL (8.5-10.1) L* 05/09/17 14:15 Phosphorus 3.1 mg/dL (2.5-4.9) D 05/09/17 14:15 Magnesium 1.8 mg/dL (1.8-2.4) 05/09/17 14:15 Total Bilirubin 0.5 mg/dL (0.2-1.0) D 05/09/17 14:15 Direct Bilirubin 0.1 mg/dL (0.0-0.2) D 05/09/17 14:15 AST U/L (15-37) 05/09/17 14:15 ALT U/L (12-78) 05/09/17 14:15 Alkaline Phosphatase 51 U/L (45-117) 05/09/17 14:15 LD Total 438 U/L (84-246) H D 05/09/17 05:45 Creatine Kinase 323 IU/L (26-192) H 05/09/17 14:15 Creatine Kinase Index 0.8 % (0.0-5.0) 05/09/17 14:15 CK-MB (CK-2) 2.623 ng/mL (0.5-3.6) 05/09/17 14:15 Troponin I 0.21 ng/ml (0.00-0.05) H 05/09/17 14:15 Total Protein 4.2 g/dl (6.4-8.2) L D 05/09/17 14:15 Albumin 1.3 g/dl (3.4-5.0) L D 05/09/17 14:15 Triglycerides > 1000 mg/dL (35-160) H D 05/09/17 05:45 Cholesterol 973 mg/dL (50-200) H* 05/09/17 05:45 Total LDL Cholesterol 90 mg/dL (5-100) 05/09/17 05:45 HDL Cholesterol 48 mg/dl (29-89) 05/09/17 05:45 Total Amylase 439 U/L (25-115) H 05/09/17 14:15 Lipase 8812 U/L (73-393) H 05/09/17 05:45 TSH 0.56 uIU/ml (0.358-3.74) 05/09/17 05:45 Free T4 0.76 ng/dl (0.76-1.46) 05/09/17 05:45 Serum , Qual Negative 05/08/17 15:15 Urine Color Ltyellow 05/08/17 17:45 Urine Appearance Slcloudy 05/08/17 17:45 Urine pH 5.0 (5.0-8.0) 05/08/17 17:45 Ur Specific [place] 1.015 (1.005-1.025) 05/08/17 17:45 Urine Protein 3+ (NEGATIVE) H 05/08/17 17:45 Urine Glucose (UA) 3+ (NEGATIVE) H 05/08/17 17:45 Urine Ketones 2+ (NEGATIVE) H 05/08/17 17:45 Urine Blood 1+ (NEGATIVE) H 05/08/17 17:45 Urine Nitrite Negative (NEGATIVE) 05/08/17 17:45 Urine Bilirubin Negative (NEGATIVE) 05/08/17 17:45 Urine Urobilinogen Negative mg/dL (0.2-1.0) 05/08/17 17:45 Ur Leukocyte Esterase Negative (NEGATIVE) 05/08/17 17:45 Urine RBC 3 /hpf (0-3) 05/08/17 17:45 Urine WBC 2 /hpf (3-5) 05/08/17 17:45 Ur Epithelial Cells Rare /hpf (FEW) 05/08/17 17:45 Urine HCG, Qual Negative 05/08/17 17:45 Alcohol, Quantitative < 5.0 mg/dl (0-5) 05/09/17 00:30 Acetone, Qual Negative (NEGATIVE) L 05/08/17 15:15 Blood Type A POSITIVE 05/09/17 12:59 Antibody Screen Negative 05/09/17 12:35 Anion Gap: Anion Gap Anion Gap 13 (8-16) 05/09/17 14:15 - Imaging Chest X-ray: Report Reviewed Cat Scan: Report Reviewed (severe pancreatitis) - Physical Examination Vital Signs: Vital Signs Temperature 97.4 F L 05/09/17 08:00 Pulse Rate 133 H 05/09/17 14:18 Respiratory Rate 30 H 05/09/17 14:17 Blood Pressure 90/55 05/09/17 12:00 O2 Sat by Pulse Oximetry (%) 99 05/09/17 14:18 Constitutional: Yes: Obese, Other (sedated) Eyes: Yes: Conjunctiva Clear HENT: Yes: Atraumatic, Normocephalic Neck: Yes: Supple, Trachea Midline Cardiovascular: Yes: Regular Rate and Rhythm, Tachycardia Respiratory: Yes: Intubated Gastrointestinal: Yes: Soft Extremities: Yes: WNL Edema: No Peripheral Pulses WNL: (poor pulses) Neurological: Yes: Unresponsive Psychiatric: Yes: Other (intubated) Assessment/Plan IMPRESSION severe hypocalcemia from Hypertriglyceridemia and pancreatiutis ABBEY probably from pancreatitis causing SIRS and shock Initial blood gas shows a respiratory and metabolic acidosis but she probably also had a metabolic alkalosis initailly, from vomiting. Note her low chloride DKA PLAN agree with apharesis continue ventilatory support for ARDS vasopressin being started HD requirement will be evaluated tomorrow if ph remains above 7.1 would not give bicarb cautious insulin administration. Her gap may not close since she may develop a lactic acidosis or hyperphosphatemia from abbey Dr louise will see tomorrow MV
[2017-05-09 16:46] VITALS: BMI 45.6
[2017-05-09] MEDS: MIDAZOLAM 100 MG in SODIUM CHLORIDE 100 ML IVPB SCH (16:59)
[2017-05-09] MEDS ORDERED: VASOPRESSIN 20 UNITS/ML VIAL IV ONE (17:17)
[2017-05-09] MEDS: VASOPRESSIN 50 UNITS in SODIUM CHLORIDE 97.5 ML IVPB SCH (17:19)
[2017-05-09] MEDS ORDERED: EPINEPHrine/PF 1 MG/1 ML (1:1,000) AMPULE ONE ×3 (17:37→19:56)
[2017-05-09] MEDS ORDERED: MIDAZOLAM HCL 5 MG/1 ML Single Dose Vial IVPUSH ONE (18:25)
[2017-05-09] MEDS ORDERED: SODIUM BICARBONATE 8.4% 50 MEQ/50 ML DISP.SYRIN IVPUSH ONE (18:25)
[2017-05-09] MEDS ORDERED: SODIUM CHLORIDE 0.9% 500 ML INFUS.BAG IV ONE (18:26)
[2017-05-09] MEDS ORDERED: SUCCINYLCHOLINE CHLORIDE 200 MG/10 ML VIAL IVPUSH ONE (18:27)
[2017-05-09 19:31] LABS: ARTERIAL BLOOD GAS BASE EXCESS -14.6 meq/l (-2-2)
[2017-05-09 19:32] LABS: ARTERIAL BLOOD GAS pH 7.13 (7.35-7.45)
[2017-05-09 19:33] LABS: ART PUNCT SITE ARTERIAL LINE; ARTERIAL BLOOD GAS HCO3 13.8 meq/L (22-26); LPM/O2% 100%; MECH. VENT. Y; PT. ON O2? YES; TYPE OF O2 VENT; VENT RATE 30; VT/PRESS 350
[2017-05-09] MEDS ORDERED: VANCOMYCIN 1,500 MG in DEXTROSE 5%-WATER - 500 ML IVPB ONE (20:00)
[2017-05-09 20:25] LABS: BASOPHIL 0.7 % (0-2.0); EOSINOPHIL 0.1 % (0-4.5); MCH 25.4 pg (25.7-33.7); MCHC 31.8 g/dl (32.0-36.0); MEAN CELL VOLUME 79.8 fl (80-96); MEAN PLT VOLUME 10.3 fl (7.5-11.1); NEUTROPHILS 45.3 % (42.8-82.8); PLATELET COUNT 205 K/MM3 (134-434); RDW 16.6 % (11.6-15.6); WHITE BLOOD COUNT 13.5 K/mm3 (4.0-10.0)
[2017-05-09] MEDS: MEROPENEM 1 GM in DEXTROSE 5%-WATER - 100 ML IVPB SCH (22:33)
[2017-05-09] MEDS: CHLORHEXIDINE GLUCONATE 4% CLEANSER FOR DECOLONIZATION TP SCH (22:44)
[2017-05-10] MEDS ORDERED: EPINEPHrine/PF 1 MG/1 ML (1:1,000) AMPULE ONE ×3 (00:24→20:07)
[2017-05-10] MEDS ORDERED: NOREPINEPHRINE BITARTRATE 4 MG/4 ML ML IV ONE ×5 (00:25→20:07)
[2017-05-10 00:26] LABS: ANION GAP 17 (8-16); CO2 14 mmol/L (21-32); CREATININE 3.7 mg/dL (0.55-1.02); PHOSPHOROUS 2.6 mg/dL (2.5-4.9)
[2017-05-10] MEDS ORDERED: PHENYLEPHRINE HCL 10 MG/1 ML SINGLE DOSE VIAL ONE ×6 (00:26→20:29)
[2017-05-10] MEDS ORDERED: VASOPRESSIN 20 UNITS/ML VIAL IV ONE ×3 (00:27→20:09)
[2017-05-10 00:29] LABS: CALCIUM < 5.0 mg/dL (8.5-10.1); GLUCOSE,RANDOM 338 mg/dL (74-106)
[2017-05-10] MEDS ORDERED: SODIUM CHLORIDE 1,000 ML IV SCH ×2 (00:45→13:45)
[2017-05-10 01:20] LABS: ARTERIAL BLD GAS O2 SATURATION 99.2 % (90-98.9); ARTERIAL BLOOD GAS BASE EXCESS -14.3 meq/l (-2-2); ARTERIAL BLOOD GAS HCO3 13.2 meq/L (22-26)
[2017-05-10 01:21] LABS: ART PUNCT SITE ARTERIAL LINE; ARTERIAL BLOOD GAS pH 7.17 (7.35-7.45); LPM/O2% 100%; MECH. VENT. Y; PT. ON O2? yes; TYPE OF O2 vent; VENT RATE 35; VT/PRESS 350
[2017-05-10] MEDS: EPINEPHRINE IV SCH (02:00)
[2017-05-10] MEDS: SODIUM CHLORIDE IV SCH (02:00)
[2017-05-10] MEDS: MEROPENEM 1 GM in DEXTROSE 5%-WATER - 100 ML IVPB SCH ×2 (02:11→14:11)
[2017-05-10] MEDS: DOXYCYCLINE INJECTION 100 MG in DEXTROSE 5%-WATER - 100 ML IVPB SCH ×2 (02:11→14:10)
[2017-05-10] MEDS: VASOPRESSIN 50 UNITS in SODIUM CHLORIDE 97.5 ML IVPB SCH ×2 (03:00→16:29)
[2017-05-10 03:19] LABS: ANION GAP 16 (8-16); CO2 14 mmol/L (21-32); PHOSPHOROUS 3.2 mg/dL (2.5-4.9)
[2017-05-10 03:33] LABS: CPK 819 IU/L (26-192)
[2017-05-10 03:37] LABS: CALCIUM < 5.0 mg/dL (8.5-10.1); GLUCOSE,RANDOM 374 mg/dL (74-106); TROPONIN I 0.63 ng/ml (0.00-0.05)
[2017-05-10] MEDS: INSULIN REGULAR 100 UNITS in SODIUM CHLORIDE 99 ML IVPB SCH ×2 (05:00→19:00)
--- NOTE | 2017-05-10 05:04 | PN ---
Progress Note (short form) - Note Progress Note: EVENT NOTE: Called at 430 am by RN who noted pupil dilation on routine neuro check. On exam pt is on versed 1mg, fentanyl gtt had been stopped few hours ago. She is unresponsive to pain/noxious stimuli. She has no cough or gag Pupils are 8mm and non-reactive to light There was no corneal reflexes. She is too unstable for CT head. Remaining sedation has been stopped She remains acidotic. Will repeat exam once can suspect that sedation is not confounding. Primary team has been made aware. Denis Corbett ACNP [id number]
[2017-05-10 05:52] LABS: BASOPHIL 0.3 % (0-2.0); EOSINOPHIL 0.3 % (0-4.5); MCH 25.9 pg (25.7-33.7); MCHC 32.6 g/dl (32.0-36.0); MEAN CELL VOLUME 79.5 fl (80-96); MEAN PLT VOLUME 10.5 fl (7.5-11.1); NEUTROPHILS 51.3 % (42.8-82.8); PLATELET COUNT 159 K/MM3 (134-434); RDW 16.3 % (11.6-15.6); WHITE BLOOD COUNT 11.6 K/mm3 (4.0-10.0)
[2017-05-10] MEDS: HEPARIN NA (PORCINE) 5,000 UNITS/ML 1ML VIAL SQ SCH ×3 (05:54→22:58)
[2017-05-10 06:10] LABS: ALBUMIN 2.8 g/dl (3.4-5.0)
[2017-05-10 06:16] LABS: ALK PHOS 26 U/L (45-117); ANION GAP 16 (8-16); BILIRUBIN,TOTAL 0.8 mg/dL (0.2-1.0); CO2 14 mmol/L (21-32); CREATININE 4.2 mg/dL (0.55-1.02); MAGNESIUM 1.2 mg/dL (1.8-2.4); SGPT/ALT 275 U/L (12-78)
[2017-05-10 06:25] LABS: SGOT/AST 1042 U/L (15-37)
[2017-05-10 06:26] LABS: CALCIUM < 5.0 mg/dL (8.5-10.1); GLUCOSE,RANDOM 310 mg/dL (74-106)
[2017-05-10 06:27] LABS: TROPONIN I 0.61 ng/ml (0.00-0.05)
[2017-05-10] MEDS: MUPIROCIN 2% TOPICAL OINTMENT FOR DECOLONIZATION NS SCH ×2 (09:34→22:55)
[2017-05-10] MEDS: FENTANYL INJECTION 500 MCG in DEXTROSE 5%-WATER - 90 ML IJ SCH (09:34)
--- NOTE | 2017-05-10 11:55 | CONSULT ---
Consult Consult Specialty:: Endocrinology Referred by:: Dr Chacko Reason for Consultation:: DKA - History of Present Illness Chief Complaint: Abd Pain History of Present Illness: This is a 27 yo woman, morbidly obese with h/o HTN, who was recently hospitalization in [place] for bronchitis t/w levaquin and albuterol who presented to ED w/ acute epigastric pain, nausea and vomiting (nonbloody). Pt was admitted to [facility] the same day and she signed out as she saw bed bug as per pt's brother. She denied h/o DM. Pt was found to be hyperglycemic and acidotic with elevated lipase and high triglycerides. CT abd and pelvis done showed severly inflamed pancreas w/ fat stranding. Patient treated with IV fluids, insulin drip. Pt was started on vasopressors and subsequently intubated b/o respiratory failure yesterday morning. Pt also had apharesis yesterday. Pt currently intubated with dilated pupils and on pressure support. Last BGM 240 on Insulin drip at rate of 6 units/hr. - History Source History Provided By: Family Member, Medical Record - Past Medical History Cardio/Vascular: Yes: HTN Pulmonary: Yes: Bronchitis - Past Surgical History Past Surgical History: Yes: Cholecystectomy - Alcohol/Substance Use Hx Alcohol Use: No - Smoking History Smoking history: Never smoked Have you smoked in the past 12 months: No - Social History Usual Living Arrangement: With Spouse ADL: Independent Home Medications - Allergies Allergies/Adverse Reactions: Allergies Allergy/AdvReac Type Severity Reaction Status Date / Time iodine Allergy Swelling Verified 05/08/17 14:43 latex Allergy Rash Verified 05/08/17 14:43 - Home Medications Home Medications: Ambulatory Orders Irbesartan [Avapro] 300 mg PO DAILY 05/08/17 Family Disease History - Family Disease History Family Disease History: Other: Mother, Brother Other Family History: Multiple members with dyspilidemias reported. Review of Systems Unable to obtain ROS, reason: intubated Physical Exam Vital Signs: Vital Signs Temperature 98.7 F 05/10/17 10:00 Pulse Rate 101 H 05/10/17 11:11 Respiratory Rate 35 H 05/10/17 11:11 Blood Pressure 107/68 05/10/17 11:11 O2 Sat by Pulse Oximetry (%) 98 05/10/17 09:43 Constitutional: Yes: Other (Intubated) Eyes: Yes: Other (dilated pupils) HENT: Yes: Atraumatic, Normocephalic Neck: Yes: Supple, Trachea Midline Cardiovascular: Yes: Regular Rate and Rhythm Respiratory: Yes: CTA Bilaterally Gastrointestinal: Yes: Normal Bowel Sounds, Soft Extremities: Yes: WNL Edema: No Neurological: Yes: Other (unable to assess, intubated.) Labs: CBC, BMP 05/10/17 05:00 05/10/17 05:00 Assessment/Plan AP: Respiratory failure DKA: resolved Acute Pancreatitis Hypertriglyceridemia ABBEY Electrolyte Imbalance Elevated LFTs On Ventilatory and pressure support S/P Apharesis with improvement in triglyceride levels Continue Insulin drip for now as this will also help to lower Triglyceride levels BGM Q one Hr Adjust Insulin drip as necessary to maintain blood sugar 120 to 180 if possible Add D5 or D10 as necessary to maintain blood sugar >120 if necessary Electrolyte replacement as necessary Discussed with housestaff. Prognosis poor
[2017-05-10 12:20] LABS: ARTERIAL BLD GAS O2 SATURATION 89.6 % (90-98.9); ARTERIAL BLOOD GAS BASE EXCESS -16.7 meq/l (-2-2); ARTERIAL BLOOD GAS HCO3 11.9 meq/L (22-26); ARTERIAL BLOOD GAS PO2 61.7 mmHg (80-100)
[2017-05-10 12:21] LABS: ART PUNCT SITE ARTERIAL LINE; LPM/O2% 80%; MECH. VENT. YES; PT. ON O2? YES; TYPE OF O2 VENT; VENT RATE 35; VT/PRESS 350
[2017-05-10 12:22] LABS: ARTERIAL BLOOD GAS pH 7.11 (7.35-7.45)
[2017-05-10] MEDS ORDERED: CALCIUM CHLORIDE 10% 1 GM/10 ML *VIAL IVPB ONE (12:45)
--- NOTE | 2017-05-10 12:45 | PN ---
Progress Note, Physician History of Present Illness: The patient is seen in the ICU. Intubated. A 27 yo female admitted via ED for vomiting and abdominal pain, 04/27, started acutely yesterday. Non-bilious emessis, no hematochezia, melena, or abiel blood in stool reported. No fever. [place] ago. PMH significant for obesity, bronchitis and HTN. Subsequently diagnosed with hyperglycemia and acute pancreatitis. Initial work up revealed A CT scan findings consistent with pancreatitis, s/p cholecystectomy. Triglycerides 6972, Glucose >500, Lipase >83695, Ketones in urine. Aceton negative. Normal liver chemistry, ALP, hgb, hct, and bilirubin. Urince HCG negative. Insulin IV and acute pancreatitis treatment was initiated however her clinical condition deteriorated and the patient was intubated. S/p TPE. Remains on ventilatory support, sedated, on 4 vasopressors and insulin drip. - Current Medication List Current Medications: Active Medications Albuterol Sulfate (Ventolin 0.083% Nebulizer Soln -) 1 amp NEB Q6H PRN PRN Reason: SHORT OF BREATH/WHEEZING Calcium Chloride (Calcium Chloride 10% -) 1 gm IVPB ONCE ONE Stop: 05/10/17 11:53 Chlorhexidine Gluconate (Hibiclens For Decolonization -) 1 applic TP HS LUNA Last Admin: 05/09/17 22:44 Dose: 1 applic Heparin Sodium (Porcine) (Heparin -) 5,000 unit SQ TID LUNA Last Admin: 05/10/17 05:54 Dose: 5,000 unit Insulin Human Regular 100 (units/ Sodium Chloride) 100 mls @ 12.42 mls/hr IVPB TITR LUNA; 0.1 UNITS/KG/HR PRN Reason: Protocol Last Admin: 05/10/17 05:00 Dose: 15 mls/hr Fentanyl 500 mcg/ Dextrose 100 mls @ 15 mls/hr IJ TITR LUNA PRN Reason: 75 MCG/HR Last Admin: 05/10/17 09:34 Dose: Not Given Midazolam HCl 100 mg/ Sodium (Chloride) 100 mls @ 4 mls/hr IVPB TITR LUNA; 4 MG/ HR PRN Reason: Protocol Last Titration: 05/10/17 04:05 Dose: 0 mg/hr Norepinephrine Bitartrate 8, (000 mcg/ Dextrose) 500 mls @ 18.75 mls/hr IV TITR LUNA; 5 MCG/MIN PRN Reason: Protocol Last Admin: 05/09/17 23:00 Dose: 150 mls/hr Phenylephrine HCl 20,000 mcg/ (Sodium Chloride) 250 mls @ 75 mls/hr IVPB ASDIR LUNA; 100 MCG/MIN PRN Reason: Protocol Last Titration: 05/10/17 04:00 Dose: 150 mcg/min Vasopressin 50 units/ Sodium (Chloride) 100 mls @ 4 mls/hr IVPB ASDIR LUNA; 2 UNITS/HR PRN Reason: Protocol Last Admin: 05/10/17 03:00 Dose: 8 mls/hr Doxycycline Hyclate 100 mg/ (Dextrose) 100 mls @ 100 mls/hr IVPB Q12H LUNA Last Admin: 05/10/17 02:11 Dose: 100 mls/hr Sodium Chloride (Normal Saline -) 1,000 mls @ 200 mls/hr IV ASDIR LUNA Last Admin: 05/10/17 02:00 Dose: 200 mls/hr Epinephrine HCl 1,000 mcg/ (Sodium Chloride) 250 mls @ 180.84 mls/hr IV ASDIR LUNA; 0.1 MCG/KG/MIN PRN Reason: Protocol Last Admin: 05/10/17 02:00 Dose: 150 mls/hr Meropenem 1 gm/ Dextrose 100 mls @ 200 mls/hr IVPB Q12H LUNA Midazolam HCl (Versed -) 4 mg IVPUSH Q2H PRN PRN Reason: AGITATION Last Admin: 05/09/17 14:00 Dose: 4 mg Mupirocin (Bactroban Ointment (For Decolonization) -) 1 applic NS BID LUNA Stop: 05/13/17 21:59 Last Admin: 05/10/17 09:34 Dose: 1 applic - Objective Vital Signs: Vital Signs Temperature 98.7 F 05/10/17 10:00 Pulse Rate 101 H 05/10/17 11:11 Respiratory Rate 35 H 05/10/17 11:11 Blood Pressure 107/68 05/10/17 11:11 O2 Sat by Pulse Oximetry (%) 98 05/10/17 09:43 Vital Signs (72 hours) 05/08/17 05/08/17 05/08/17 14:37 20:05 22:00 Temperature 97.6 F 98 F 98.7 F Pulse Rate 122 H Pulse Rate [ 130 H 128 H Right Radial] Respiratory 20 22 28 H Rate Blood Pressure 136/99 Blood Pressure 121/73 111/68 [Left Arm] O2 Sat by Pulse 99 94 L 98 Oximetry (%) 05/08/17 05/08/17 05/09/17 22:10 22:20 00:00 Temperature 98.9 F Pulse Rate 123 H 118 H Pulse Rate [ Right Radial] Respiratory 27 H 27 H 25 H Rate Blood Pressure 120/82 112/68 Blood Pressure [Left Arm] O2 Sat by Pulse 94 L Oximetry (%) 05/09/17 05/09/17 05/09/17 02:00 04:00 06:00 Temperature 98.5 F 98.1 F Pulse Rate 124 H 126 H 129 H Pulse Rate [ Right Radial] Respiratory 30 H 36 H 40 H Rate Blood Pressure 114/92 104/79 111/68 Blood Pressure [Left Arm] O2 Sat by Pulse Oximetry (%) 05/09/17 05/09/17 05/09/17 08:00 09:00 10:00 Temperature 97.4 F L Pulse Rate 138 H 128 H Pulse Rate [ Right Radial] Respiratory 44 H 44 H Rate Blood Pressure 99/66 84/63 Blood Pressure [Left Arm] O2 Sat by Pulse 94 L Oximetry (%) 05/09/17 05/09/17 05/09/17 10:15 10:30 11:30 Temperature Pulse Rate 126 H 127 H 144 H Pulse Rate [ Right Radial] Respiratory 24 32 H Rate Blood Pressure 70/45 78/41 Blood Pressure [Left Arm] O2 Sat by Pulse 97 Oximetry (%) 05/09/17 05/09/17 05/09/17 11:44 12:00 13:00 Temperature Pulse Rate 141 H 145 H Pulse Rate [ Right Radial] Respiratory 29 H 44 H 32 H Rate Blood Pressure 90/55 73/32 Blood Pressure [Left Arm] O2 Sat by Pulse Oximetry (%) 05/09/17 05/09/17 05/09/17 14:17 14:18 16:00 Temperature Pulse Rate 133 H 143 H Pulse Rate [ Right Radial] Respiratory 30 H 46 H Rate Blood Pressure 121/79 Blood Pressure [Left Arm] O2 Sat by Pulse 99 Oximetry (%) 05/09/17 05/09/17 05/09/17 17:19 17:20 18:00 Temperature 102 F H Pulse Rate 124 H Pulse Rate [ Right Radial] Respiratory 30 H 30 H Rate Blood Pressure 111/70 113/79 Blood Pressure [Left Arm] O2 Sat by Pulse Oximetry (%) 05/09/17 05/09/17 05/09/17 19:00 19:35 20:00 Temperature 102.2 F H 101.8 F H Pulse Rate 101 H 103 H Pulse Rate [ Right Radial] Respiratory 30 H 30 H 35 H Rate Blood Pressure 76/51 99/67 Blood Pressure [Left Arm] O2 Sat by Pulse Oximetry (%) 05/09/17 05/09/17 05/09/17 21:00 21:37 22:00 Temperature 101.9 F H 102.1 F H Pulse Rate 96 H 94 H Pulse Rate [ Right Radial] Respiratory 35 H 35 H 35 H Rate Blood Pressure 90/66 93/65 Blood Pressure [Left Arm] O2 Sat by Pulse 100 100 Oximetry (%) 05/09/17 05/10/17 05/10/17 23:00 00:00 00:10 Temperature 102.2 F H Pulse Rate 95 H 105 H Pulse Rate [ Right Radial] Respiratory 35 H 35 H 35 H Rate Blood Pressure 87/52 107/73 Blood Pressure [Left Arm] O2 Sat by Pulse Oximetry (%) 05/10/17 05/10/17 05/10/17 01:00 02:00 03:00 Temperature 101.7 F H 101.1 F H 101 F H Pulse Rate 107 H 98 H 96 H Pulse Rate [ Right Radial] Respiratory 35 H 35 H 35 H Rate Blood Pressure 96/68 110/57 93/63 Blood Pressure [Left Arm] O2 Sat by Pulse Oximetry (%) 05/10/17 05/10/17 05/10/17 03:15 04:00 05:00 Temperature 100.6 F H 100.4 F H Pulse Rate 97 H 96 H Pulse Rate [ Right Radial] Respiratory 35 H 35 H 35 H Rate Blood Pressure 105/72 104/73 Blood Pressure [Left Arm] O2 Sat by Pulse Oximetry (%) 05/10/17 05/10/17 05/10/17 06:00 06:28 08:00 Temperature 100.1 F H 99.4 F Pulse Rate 98 H 99 H Pulse Rate [ Right Radial] Respiratory 35 H 35 H 35 H Rate Blood Pressure 103/69 103/69 Blood Pressure [Left Arm] O2 Sat by Pulse 99 Oximetry (%) 05/10/17 05/10/17 05/10/17 09:00 09:32 09:42 Temperature 99.2 F Pulse Rate 99 H 100 H 99 H Pulse Rate [ Right Radial] Respiratory 35 H 35 H 35 H Rate Blood Pressure 107/67 113/70 Blood Pressure [Left Arm] O2 Sat by Pulse 98 98 Oximetry (%) 05/10/17 05/10/17 05/10/17 09:43 10:00 11:06 Temperature 98.7 F Pulse Rate 99 H Pulse Rate [ Right Radial] Respiratory 35 H 35 H Rate Blood Pressure 103/72 Blood Pressure [Left Arm] O2 Sat by Pulse 98 Oximetry (%) 05/10/17 11:11 Temperature Pulse Rate 101 H Pulse Rate [ Right Radial] Respiratory 35 H Rate Blood Pressure 107/68 Blood Pressure [Left Arm] O2 Sat by Pulse Oximetry (%) Gastrointestinal: Yes: Abdomen, Obese, Hypoactive Bowel Sounds, Other (firm) Edema: Yes Labs: CBC, BMP 05/10/17 05:00 05/10/17 05:00 INR, PTT INR 1.27 (0.82-1.09) H 05/09/17 13:00 Fibrinogen 342.0 mg/dL (238-498) D 05/10/17 05:00 Laboratory Results - last 24 hr 05/08/17 05/09/17 05/09/17 22:41 00:12 01:43 WBC RBC Hgb Hct MCV MCH MCHC RDW Plt Count MPV Neutrophils % Lymphocytes % Monocytes % Eosinophils % Basophils % PT with INR INR PTT (Actin FS) Fibrinogen Puncture Site ABG pH ABG pCO2 at Pt Temp ABG pO2 at Pt Temp ABG HCO3 ABG O2 Sat (Measured) ABG O2 Content ABG Base Excess Giovani Test O2 Delivery Device Oxygen Flow Rate Vent Mode Vent Rate Mechanical Rate PEEP Pressure Support Vent Sodium Potassium Chloride Carbon Dioxide Anion Gap BUN Creatinine Creat Clearance w eGFR POC Glucometer [phone] [phone] Random Glucose Lactic Acid Calcium Phosphorus Magnesium Total Bilirubin Direct Bilirubin AST ALT Alkaline Phosphatase Creatine Kinase Creatine Kinase Index CK-MB (CK-2) Troponin I Total Protein Albumin Triglycerides Cholesterol Total LDL Cholesterol HDL Cholesterol Total Amylase Beta HCG, Quant Blood Type Antibody Screen 05/09/17 05/09/17 05/09/17 02:55 03:53 05:26 WBC RBC Hgb Hct MCV MCH MCHC RDW Plt Count MPV Neutrophils % Lymphocytes % Monocytes % Eosinophils % Basophils % PT with INR INR PTT (Actin FS) Fibrinogen Puncture Site ABG pH ABG pCO2 at Pt Temp ABG pO2 at Pt Temp ABG HCO3 ABG O2 Sat (Measured) ABG O2 Content ABG Base Excess Giovani Test O2 Delivery Device Oxygen Flow Rate Vent Mode Vent Rate Mechanical Rate PEEP Pressure Support Vent Sodium Potassium Chloride Carbon Dioxide Anion Gap BUN Creatinine Creat Clearance w eGFR POC Glucometer [phone] [phone] Random Glucose Lactic Acid Calcium Phosphorus Magnesium Total Bilirubin Direct Bilirubin AST ALT Alkaline Phosphatase Creatine Kinase Creatine Kinase Index CK-MB (CK-2) Troponin I Total Protein Albumin Triglycerides Cholesterol Total LDL Cholesterol HDL Cholesterol Total Amylase Beta HCG, Quant Blood Type Antibody Screen 05/09/17 05/09/17 05/09/17 05:45 07:30 08:42 WBC RBC Hgb Hct MCV MCH MCHC RDW Plt Count MPV Neutrophils % Lymphocytes % Monocytes % Eosinophils % Basophils % PT with INR INR PTT (Actin FS) Fibrinogen Puncture Site ABG pH ABG pCO2 at Pt Temp ABG pO2 at Pt Temp ABG HCO3 ABG O2 Sat (Measured) ABG O2 Content ABG Base Excess Giovani Test O2 Delivery Device Oxygen Flow Rate Vent Mode Vent Rate Mechanical Rate PEEP Pressure Support Vent Sodium Potassium Chloride Carbon Dioxide Anion Gap BUN Creatinine Creat Clearance w eGFR POC Glucometer [phone] Random Glucose Lactic Acid Calcium Phosphorus Magnesium Total Bilirubin Direct Bilirubin AST ALT Alkaline Phosphatase Creatine Kinase Creatine Kinase Index CK-MB (CK-2) Troponin I Total Protein Albumin Triglycerides > 1000 H D Cholesterol 973 H* Total LDL Cholesterol 90 HDL Cholesterol 48 Total Amylase Beta HCG, Quant Blood Type Antibody Screen 05/09/17 05/09/17 05/09/17 11:24 12:00 12:35 WBC RBC Hgb Hct MCV MCH MCHC RDW Plt Count MPV Neutrophils % Lymphocytes % Monocytes % Eosinophils % Basophils % PT with INR INR PTT (Actin FS) Fibrinogen Puncture Site ABG pH ABG pCO2 at Pt Temp ABG pO2 at Pt Temp ABG HCO3 ABG O2 Sat (Measured) ABG O2 Content ABG Base Excess Giovani Test O2 Delivery Device Oxygen Flow Rate Vent Mode Vent Rate Mechanical Rate PEEP Pressure Support Vent Sodium Potassium Chloride Carbon Dioxide Anion Gap BUN Creatinine Creat Clearance w eGFR POC Glucometer [phone] Random Glucose Lactic Acid 1.1 Calcium Phosphorus Magnesium Total Bilirubin Direct Bilirubin AST ALT Alkaline Phosphatase Creatine Kinase Creatine Kinase Index CK-MB (CK-2) Troponin I Total Protein Albumin Triglycerides Cholesterol Total LDL Cholesterol HDL Cholesterol Total Amylase Beta HCG, Quant Blood Type A POSITIVE Antibody Screen Negative 05/09/17 05/09/17 05/09/17 12:59 13:00 13:00 WBC RBC Hgb Hct MCV MCH MCHC RDW Plt Count MPV Neutrophils % Lymphocytes % Monocytes % Eosinophils % Basophils % PT with INR 14.30 H 14.30 H INR 1.27 H 1.27 H PTT (Actin FS) Fibrinogen 495.0 Puncture Site ABG pH ABG pCO2 at Pt Temp ABG pO2 at Pt Temp ABG HCO3 ABG O2 Sat (Measured) ABG O2 Content ABG Base Excess Giovani Test O2 Delivery Device Oxygen Flow Rate Vent Mode Vent Rate Mechanical Rate PEEP Pressure Support Vent Sodium Potassium Chloride Carbon Dioxide Anion Gap BUN Creatinine Creat Clearance w eGFR POC Glucometer Random Glucose Lactic Acid Calcium Phosphorus Magnesium Total Bilirubin Direct Bilirubin AST ALT Alkaline Phosphatase Creatine Kinase Creatine Kinase Index CK-MB (CK-2) Troponin I Total Protein Albumin Triglycerides Cholesterol Total LDL Cholesterol HDL Cholesterol Total Amylase Beta HCG, Quant Blood Type A POSITIVE Antibody Screen 05/09/17 05/09/17 05/09/17 13:40 13:48 14:15 WBC RBC Hgb Hct MCV MCH MCHC RDW Plt Count MPV Neutrophils % Lymphocytes % Monocytes % Eosinophils % Basophils % PT with INR INR PTT (Actin FS) Fibrinogen Puncture Site Arterial line ABG pH 7.25 L ABG pCO2 at Pt Temp 40.8 ABG pO2 at Pt Temp 236.0 H* ABG HCO3 17.2 L ABG O2 Sat (Measured) 99.6 H* ABG O2 Content 17.8 ABG Base Excess -9.2 L Giovani Test Not applicable O2 Delivery Device Vent Oxygen Flow Rate 100% Vent Mode A/c Vent Rate 30 Mechanical Rate Y PEEP 12.0 Pressure Support Vent 350 Sodium Cancelled Potassium Cancelled Chloride Cancelled Carbon Dioxide Cancelled Anion Gap Cancelled BUN Cancelled Creatinine Cancelled Creat Clearance w eGFR POC Glucometer [phone] Random Glucose Cancelled Lactic Acid Calcium Cancelled Phosphorus Magnesium Total Bilirubin Direct Bilirubin AST ALT Alkaline Phosphatase Creatine Kinase Creatine Kinase Index CK-MB (CK-2) Troponin I Total Protein Albumin Triglycerides Cholesterol Total LDL Cholesterol HDL Cholesterol Total Amylase Beta HCG, Quant Blood Type Antibody Screen 05/09/17 05/09/17 05/09/17 14:15 14:15 16:57 WBC 9.7 RBC 5.31 H Hgb 13.7 D Hct 41.5 MCV 78.0 L MCH 25.9 MCHC 33.2 RDW 16.4 H Plt Count 274 D MPV 10.0 Neutrophils % Lymphocytes % Monocytes % Eosinophils % Basophils % PT with INR INR PTT (Actin FS) Fibrinogen Puncture Site ABG pH ABG pCO2 at Pt Temp ABG pO2 at Pt Temp ABG HCO3 ABG O2 Sat (Measured) ABG O2 Content ABG Base Excess Giovani Test O2 Delivery Device Oxygen Flow Rate Vent Mode Vent Rate Mechanical Rate PEEP Pressure Support Vent Sodium 136 Potassium 4.8 Chloride 104 Carbon Dioxide 19 L Anion Gap 13 BUN 18 Creatinine 3.0 H D Creat Clearance w eGFR POC Glucometer [phone] Random Glucose 442 H* D Lactic Acid Calcium < 5.0 L* Phosphorus 3.1 D Magnesium 1.8 Total Bilirubin 0.5 D Direct Bilirubin 0.1 D AST ALT Alkaline Phosphatase 51 Creatine Kinase 323 H Creatine Kinase Index 0.8 CK-MB (CK-2) 2.623 Troponin I 0.21 H Total Protein 4.2 L D Albumin 1.3 L D Triglycerides Cholesterol Total LDL Cholesterol HDL Cholesterol Total Amylase 439 H Beta HCG, Quant Blood Type Antibody Screen 05/09/17 05/09/17 05/09/17 19:27 20:00 20:00 WBC RBC Hgb Hct MCV MCH MCHC RDW Plt Count MPV Neutrophils % Lymphocytes % Monocytes % Eosinophils % Basophils % PT with INR INR PTT (Actin FS) Fibrinogen Puncture Site Arterial line ABG pH 7.13 L* ABG pCO2 at Pt Temp 43.2 ABG pO2 at Pt Temp 168.0 H* ABG HCO3 13.8 L* ABG O2 Sat (Measured) 99.0 H ABG O2 Content 16.2 ABG Base Excess -14.6 L* Giovani Test Not applicable O2 Delivery Device Vent Oxygen Flow Rate 100% Vent Mode A/c Vent Rate 30 Mechanical Rate Y PEEP 12.0 Pressure Support Vent 350 Sodium Potassium Chloride Carbon Dioxide Anion Gap BUN Creatinine Creat Clearance w eGFR POC Glucometer Random Glucose Lactic Acid Calcium Phosphorus Magnesium Total Bilirubin Direct Bilirubin AST ALT Alkaline Phosphatase Creatine Kinase 373 H Creatine Kinase Index 0.6 CK-MB (CK-2) 2.563 Troponin I Total Protein Albumin Triglycerides 661 H D Cholesterol Total LDL Cholesterol HDL Cholesterol Total Amylase Beta HCG, Quant Blood Type Antibody Screen 05/09/17 05/09/17 05/09/17 20:00 20:00 20:00 WBC 13.5 H D RBC 4.64 Hgb 11.8 D Hct 37.0 MCV 79.8 L MCH 25.4 L MCHC 31.8 L RDW 16.6 H Plt Count 205 D MPV 10.3 Neutrophils % 45.3 D Lymphocytes % 46.9 H D Monocytes % 7.0 Eosinophils % 0.1 Basophils % 0.7 PT with INR INR PTT (Actin FS) Cancelled Fibrinogen 222.0 L D Puncture Site ABG pH ABG pCO2 at Pt Temp ABG pO2 at Pt Temp ABG HCO3 ABG O2 Sat (Measured) ABG O2 Content ABG Base Excess Giovani Test O2 Delivery Device Oxygen Flow Rate Vent Mode Vent Rate Mechanical Rate PEEP Pressure Support Vent Sodium Potassium Chloride Carbon Dioxide Anion Gap BUN Creatinine Creat Clearance w eGFR POC Glucometer Random Glucose Lactic Acid Calcium Phosphorus 2.6 Magnesium Total Bilirubin Direct Bilirubin AST ALT Alkaline Phosphatase Creatine Kinase Creatine Kinase Index CK-MB (CK-2) Troponin I Total Protein Albumin Triglycerides Cholesterol Total LDL Cholesterol HDL Cholesterol Total Amylase Beta HCG, Quant Blood Type Antibody Screen 05/09/17 05/09/17 05/09/17 20:00 20:00 20:00 WBC RBC Hgb Hct MCV MCH MCHC RDW Plt Count MPV Neutrophils % Lymphocytes % Monocytes % Eosinophils % Basophils % PT with INR INR PTT (Actin FS) Fibrinogen Puncture Site ABG pH ABG pCO2 at Pt Temp ABG pO2 at Pt Temp ABG HCO3 ABG O2 Sat (Measured) ABG O2 Content ABG Base Excess Giovani Test O2 Delivery Device Oxygen Flow Rate Vent Mode Vent Rate Mechanical Rate PEEP Pressure Support Vent Sodium Potassium Chloride Carbon Dioxide Anion Gap BUN Creatinine Creat Clearance w eGFR POC Glucometer [phone] Random Glucose Lactic Acid 4.5 H* Calcium < 5.0 L* Phosphorus Magnesium Total Bilirubin Direct Bilirubin AST ALT Alkaline Phosphatase Creatine Kinase Creatine Kinase Index CK-MB (CK-2) Troponin I Total Protein Albumin Triglycerides Cholesterol Total LDL Cholesterol HDL Cholesterol Total Amylase Beta HCG, Quant Blood Type Antibody Screen 10/22/17 10/22/17 10/22/17 22:07 22:14 23:30 WBC RBC Hgb Hct MCV MCH MCHC RDW Plt Count MPV Neutrophils % Lymphocytes % Monocytes % Eosinophils % Basophils % PT with INR INR PTT (Actin FS) Fibrinogen Puncture Site ABG pH ABG pCO2 at Pt Temp ABG pO2 at Pt Temp ABG HCO3 ABG O2 Sat (Measured) ABG O2 Content ABG Base Excess Giovani Test O2 Delivery Device Oxygen Flow Rate Vent Mode Vent Rate Mechanical Rate PEEP Pressure Support Vent Sodium 139 Potassium 4.3 Chloride 108 H Carbon Dioxide 14 L D Anion Gap 17 H BUN 19 H Creatinine 3.7 H D Creat Clearance w eGFR POC Glucometer [phone] Random Glucose 338 H* D Lactic Acid 4.1 H* Calcium < 5.0 L* Phosphorus 2.6 Magnesium Total Bilirubin Direct Bilirubin AST ALT Alkaline Phosphatase Creatine Kinase Creatine Kinase Index CK-MB (CK-2) Troponin I Total Protein Albumin Triglycerides Cholesterol Total LDL Cholesterol HDL Cholesterol Total Amylase Beta HCG, Quant Blood Type Antibody Screen 05/10/17 05/10/17 05/10/17 00:16 01:15 02:00 WBC RBC Hgb Hct MCV MCH MCHC RDW Plt Count MPV Neutrophils % Lymphocytes % Monocytes % Eosinophils % Basophils % PT with INR INR PTT (Actin FS) Fibrinogen Puncture Site Arterial line ABG pH 7.17 L* ABG pCO2 at Pt Temp 37.6 ABG pO2 at Pt Temp 147.0 H D ABG HCO3 13.2 L* ABG O2 Sat (Measured) 99.2 H ABG O2 Content 16.3 ABG Base Excess -14.3 L* Giovani Test Not applicable O2 Delivery Device vent Oxygen Flow Rate 100% Vent Mode Ac Vent Rate 35 Mechanical Rate Y PEEP 12.0 Pressure Support Vent 350 Sodium Potassium Chloride Carbon Dioxide Anion Gap BUN Creatinine Creat Clearance w eGFR POC Glucometer [phone] Random Glucose Lactic Acid 3.5 H* Calcium Phosphorus Magnesium Total Bilirubin Direct Bilirubin AST ALT Alkaline Phosphatase Creatine Kinase Creatine Kinase Index CK-MB (CK-2) Troponin I Total Protein Albumin Triglycerides Cholesterol Total LDL Cholesterol HDL Cholesterol Total Amylase Beta HCG, Quant Blood Type Antibody Screen 05/10/17 05/10/17 05/10/17 02:00 02:38 05:00 WBC 11.6 H RBC 4.53 Hgb 11.7 Hct 36.0 MCV 79.5 L MCH 25.9 MCHC 32.6 RDW 16.3 H Plt Count 159 D MPV 10.5 Neutrophils % 51.3 Lymphocytes % 44.4 H Monocytes % 3.7 L Eosinophils % 0.3 D Basophils % 0.3 PT with INR INR PTT (Actin FS) Fibrinogen Puncture Site ABG pH ABG pCO2 at Pt Temp ABG pO2 at Pt Temp ABG HCO3 ABG O2 Sat (Measured) ABG O2 Content ABG Base Excess Giovani Test O2 Delivery Device Oxygen Flow Rate Vent Mode Vent Rate Mechanical Rate PEEP Pressure Support Vent Sodium 135 L Potassium 4.3 Chloride 105 Carbon Dioxide 14 L Anion Gap 16 BUN 21 H Creatinine 4.0 H Creat Clearance w eGFR POC Glucometer [phone] Random Glucose 374 H* Lactic Acid Calcium < 5.0 L* Phosphorus 3.2 D Magnesium Total Bilirubin Direct Bilirubin AST ALT Alkaline Phosphatase Creatine Kinase 819 H Creatine Kinase Index 0.7 CK-MB (CK-2) 6.438 H Troponin I 0.63 H* Total Protein Albumin Triglycerides Cholesterol Total LDL Cholesterol HDL Cholesterol Total Amylase Beta HCG, Quant Blood Type Antibody Screen 05/10/17 05/10/17 05/10/17 05:00 05:00 05:00 WBC RBC Hgb Hct MCV MCH MCHC RDW Plt Count MPV Neutrophils % Lymphocytes % Monocytes % Eosinophils % Basophils % PT with INR INR PTT (Actin FS) Fibrinogen 342.0 D Puncture Site ABG pH ABG pCO2 at Pt Temp ABG pO2 at Pt Temp ABG HCO3 ABG O2 Sat (Measured) ABG O2 Content ABG Base Excess Giovani Test O2 Delivery Device Oxygen Flow Rate Vent Mode Vent Rate Mechanical Rate PEEP Pressure Support Vent Sodium 135 L Potassium 4.1 Chloride 105 Carbon Dioxide 14 L Anion Gap 16 BUN 22 H Creatinine 4.2 H Creat Clearance w eGFR 12.51 POC Glucometer Random Glucose 310 H* Lactic Acid Calcium < 5.0 L* Phosphorus Magnesium 1.2 L D Total Bilirubin 0.8 D Direct Bilirubin AST 1042 H ALT 275 H D Alkaline Phosphatase 26 L D Creatine Kinase 990 H Creatine Kinase Index 0.7 CK-MB (CK-2) 7.801 H Troponin I 0.61 H* Total Protein 4.0 L Albumin 2.8 L D Triglycerides 704 H Cholesterol Total LDL Cholesterol HDL Cholesterol Total Amylase Beta HCG, Quant Blood Type Antibody Screen 05/10/17 05/10/17 05/10/17 05:00 07:00 12:05 WBC RBC Hgb Hct MCV MCH MCHC RDW Plt Count MPV Neutrophils % Lymphocytes % Monocytes % Eosinophils % Basophils % PT with INR INR PTT (Actin FS) Fibrinogen Puncture Site Arterial line ABG pH 7.11 L* ABG pCO2 at Pt Temp 39.4 ABG pO2 at Pt Temp 61.7 L D ABG HCO3 11.9 L* ABG O2 Sat (Measured) 89.6 L ABG O2 Content 14.0 L ABG Base Excess -16.7 L* Giovani Test Not applicable O2 Delivery Device Vent Oxygen Flow Rate 80% Vent Mode A/c Vent Rate 35 Mechanical Rate Yes PEEP 12.0 Pressure Support Vent 350 Sodium Potassium Chloride Carbon Dioxide Anion Gap BUN Creatinine Creat Clearance w eGFR POC Glucometer Random Glucose Lactic Acid 2.3 H* Calcium Phosphorus Magnesium Total Bilirubin Direct Bilirubin AST ALT Alkaline Phosphatase Creatine Kinase Creatine Kinase Index CK-MB (CK-2) Troponin I Total Protein Albumin Triglycerides Cholesterol Total LDL Cholesterol HDL Cholesterol Total Amylase Beta HCG, Quant < 1.0 Blood Type Antibody Screen Problem List - Problems (1) Pancreatitis Code(s): K85.90 - ACUTE PANCREATITIS WITHOUT NECROSIS OR INFECTION, UNSP Assessment/Plan Hypertriglyceridemic acute, severe pancreatitis, with multiorgan failure, uncontrolled DM. Recently treated for respiratory infection in [place], per history . S/p TPE with TG today ~700 post exchange. On insulin drip. Requires 4 pressors to maintain adequate persussion. Agree with severe, acute pancreatitis management. Continue insulin IV to bring TG below 500. Active Orders - 24 Hr 05/09/17 12:30 Midazolam [Versed -] 100 mg Sodium Chloride [Normal Saline -] 100 ml IVPB TITR 05/09/17 14:41 Consult [Physician Consultation] Physician 1 05/09/17 15:00 BLOOD CULTURE Stat 05/09/17 16:00 Norepinephrine Bitartrate [Levophed -] 8,000 mcg Dextrose 5%-Water - [D5w -] 492 ml IV TITR Phenylephrine HCl [Jose-Synephrine -] 20,000 mcg Sodium Chloride [Normal Saline -] 248 ml IVPB ASDIR Vasopressin [Pitressin -] 50 units Sodium Chloride [Normal Saline -] 97.5 ml IVPB ASDIR 05/09/17 19:30 Saline Lock, Insert ONCE 05/09/17 20:00 CALCIUM,IONIZED NOW IGG IMMUNOGLOBULIN Routine 05/10/17 00:45 Sodium Chloride [Normal Saline -] 1,000 ml IV ASDIR 05/10/17 00:53 Epinephrine 1:1,000 - 1,000 mcg Sodium Chloride [Normal Saline -] 249 ml IV ASDIR 05/10/17 02:00 CALCIUM,IONIZED Routine HEPATITIS ACUTE PANEL Routine Doxycycline Injection [Vibramycin Injection -] 100 mg Dextrose 5%-Water - [ D5w -] 100 ml IVPB Q12H 05/10/17 04:50 HCG,QUALITATIVE URINE Stat 05/10/17 09:52 Physician Consultation Physician 2 Reminder: new phy cons See Order 05/10/17 12:00 TRIGLYCERIDES Routine 05/10/17 12:17 Physician Consultation Physician 1 05/10/17 12:22 Reminder: new phy cons See Order 05/10/17 12:45 Calcium Chloride 10% - 1 gm IVPB ONCE ONE 05/10/17 14:00 Meropenem [Merrem (Restricted To Id) -] 1 gm Dextrose 5%-Water - [D5w -] 100 ml IVPB Q12H
--- NOTE | 2017-05-10 12:52 | PN ---
Teaching Attending Note Name of Resident: Stephane May ATTENDING PHYSICIAN STATEMENT I saw and evaluated the patient. I reviewed the resident's note and discussed the case with the resident. I agree with the resident's findings and plan as documented. SUBJECTIVE: Patient seen and examined in the unit. Events noted. Unfortunate case. Max support of 4 pressors with marginal hemodynamics. AC mode of vent. AC Mode of vent, 80% FiO2. Severe metabolic derangement noted. Intake & Output 05/07/17 05/08/17 05/09/17 05/10/17 23:59 23:59 23:59 23:59 Intake Total 31829 5132 Output Total 780 175 Balance 26850 4957 Weight 266 lb 8 oz 265 lb 12.8 oz 300 lb 1.6 oz Last Vital Signs Temp Pulse Resp BP Pulse Ox 98.7 F 101 H 35 H 107/68 98 05/10/17 10:00 05/10/17 11:11 05/10/17 11:11 05/10/17 11:11 05/10/17 09:43 Active Medications Albuterol Sulfate (Ventolin 0.083% Nebulizer Soln -) 1 amp NEB Q6H PRN PRN Reason: SHORT OF BREATH/WHEEZING Chlorhexidine Gluconate (Hibiclens For Decolonization -) 1 applic TP HS LUNA Last Admin: 05/09/17 22:44 Dose: 1 applic Heparin Sodium (Porcine) (Heparin -) 5,000 unit SQ TID LUNA Last Admin: 05/10/17 05:54 Dose: 5,000 unit Insulin Human Regular 100 (units/ Sodium Chloride) 100 mls @ 12.42 mls/hr IVPB TITR LUNA; 0.1 UNITS/KG/HR PRN Reason: Protocol Last Admin: 05/10/17 05:00 Dose: 15 mls/hr Fentanyl 500 mcg/ Dextrose 100 mls @ 15 mls/hr IJ TITR LUNA PRN Reason: 75 MCG/HR Last Admin: 05/10/17 09:34 Dose: Not Given Midazolam HCl 100 mg/ Sodium (Chloride) 100 mls @ 4 mls/hr IVPB TITR LUNA; 4 MG/ HR PRN Reason: Protocol Last Titration: 05/10/17 04:05 Dose: 0 mg/hr Norepinephrine Bitartrate 8, (000 mcg/ Dextrose) 500 mls @ 18.75 mls/hr IV TITR LUNA; 5 MCG/MIN PRN Reason: Protocol Last Admin: 05/09/17 23:00 Dose: 150 mls/hr Phenylephrine HCl 20,000 mcg/ (Sodium Chloride) 250 mls @ 75 mls/hr IVPB ASDIR LUNA; 100 MCG/MIN PRN Reason: Protocol Last Titration: 05/10/17 04:00 Dose: 150 mcg/min Vasopressin 50 units/ Sodium (Chloride) 100 mls @ 4 mls/hr IVPB ASDIR LUNA; 2 UNITS/HR PRN Reason: Protocol Last Admin: 05/10/17 03:00 Dose: 8 mls/hr Doxycycline Hyclate 100 mg/ (Dextrose) 100 mls @ 100 mls/hr IVPB Q12H LUNA Last Admin: 05/10/17 02:11 Dose: 100 mls/hr Sodium Chloride (Normal Saline -) 1,000 mls @ 200 mls/hr IV ASDIR LUNA Last Admin: 05/10/17 02:00 Dose: 200 mls/hr Epinephrine HCl 1,000 mcg/ (Sodium Chloride) 250 mls @ 180.84 mls/hr IV ASDIR LUNA; 0.1 MCG/KG/MIN PRN Reason: Protocol Last Admin: 05/10/17 02:00 Dose: 150 mls/hr Meropenem 1 gm/ Dextrose 100 mls @ 200 mls/hr IVPB Q12H LUNA Midazolam HCl (Versed -) 4 mg IVPUSH Q2H PRN PRN Reason: AGITATION Last Admin: 05/09/17 14:00 Dose: 4 mg Mupirocin (Bactroban Ointment (For Decolonization) -) 1 applic NS BID LUNA Stop: 05/13/17 21:59 Last Admin: 05/10/17 09:34 Dose: 1 applic Gen: Non-responsive, AC Mode of vent. HEENT: Pupils dilated and unreactive, R IJ Catheter PULM: diffuse crackles, no wheezes, AC Mode of mechanical ventilation CV: tachy, regular, no m/r/g appreciated ABD: obese, distended, hypoactive BS EXT: trace edema Neuro: non-focal Laboratory Results - last 24 hr 05/08/17 05/09/17 05/09/17 22:41 00:12 01:43 WBC RBC Hgb Hct MCV MCH MCHC RDW Plt Count MPV Neutrophils % Lymphocytes % Monocytes % Eosinophils % Basophils % PT with INR INR PTT (Actin FS) Fibrinogen Puncture Site ABG pH ABG pCO2 at Pt Temp ABG pO2 at Pt Temp ABG HCO3 ABG O2 Sat (Measured) ABG O2 Content ABG Base Excess Giovani Test O2 Delivery Device Oxygen Flow Rate Vent Mode Vent Rate Mechanical Rate PEEP Pressure Support Vent Sodium Potassium Chloride Carbon Dioxide Anion Gap BUN Creatinine Creat Clearance w eGFR POC Glucometer [phone] [phone] Random Glucose Lactic Acid Calcium Phosphorus Magnesium Total Bilirubin Direct Bilirubin AST ALT Alkaline Phosphatase Creatine Kinase Creatine Kinase Index CK-MB (CK-2) Troponin I Total Protein Albumin Triglycerides Cholesterol Total LDL Cholesterol HDL Cholesterol Total Amylase Beta HCG, Quant Blood Type Antibody Screen 05/09/17 05/09/17 05/09/17 02:55 03:53 05:26 WBC RBC Hgb Hct MCV MCH MCHC RDW Plt Count MPV Neutrophils % Lymphocytes % Monocytes % Eosinophils % Basophils % PT with INR INR PTT (Actin FS) Fibrinogen Puncture Site ABG pH ABG pCO2 at Pt Temp ABG pO2 at Pt Temp ABG HCO3 ABG O2 Sat (Measured) ABG O2 Content ABG Base Excess Giovani Test O2 Delivery Device Oxygen Flow Rate Vent Mode Vent Rate Mechanical Rate PEEP Pressure Support Vent Sodium Potassium Chloride Carbon Dioxide Anion Gap BUN Creatinine Creat Clearance w eGFR POC Glucometer [phone] [phone] Random Glucose Lactic Acid Calcium Phosphorus Magnesium Total Bilirubin Direct Bilirubin AST ALT Alkaline Phosphatase Creatine Kinase Creatine Kinase Index CK-MB (CK-2) Troponin I Total Protein Albumin Triglycerides Cholesterol Total LDL Cholesterol HDL Cholesterol Total Amylase Beta HCG, Quant Blood Type Antibody Screen 05/09/17 05/09/17 05/09/17 05:45 07:30 08:42 WBC RBC Hgb Hct MCV MCH MCHC RDW Plt Count MPV Neutrophils % Lymphocytes % Monocytes % Eosinophils % Basophils % PT with INR INR PTT (Actin FS) Fibrinogen Puncture Site ABG pH ABG pCO2 at Pt Temp ABG pO2 at Pt Temp ABG HCO3 ABG O2 Sat (Measured) ABG O2 Content ABG Base Excess Giovani Test O2 Delivery Device Oxygen Flow Rate Vent Mode Vent Rate Mechanical Rate PEEP Pressure Support Vent Sodium Potassium Chloride Carbon Dioxide Anion Gap BUN Creatinine Creat Clearance w eGFR POC Glucometer [phone] Random Glucose Lactic Acid Calcium Phosphorus Magnesium Total Bilirubin Direct Bilirubin AST ALT Alkaline Phosphatase Creatine Kinase Creatine Kinase Index CK-MB (CK-2) Troponin I Total Protein Albumin Triglycerides > 1000 H D Cholesterol 973 H* Total LDL Cholesterol 90 HDL Cholesterol 48 Total Amylase Beta HCG, Quant Blood Type Antibody Screen 05/09/17 05/09/17 05/09/17 11:24 12:00 12:35 WBC RBC Hgb Hct MCV MCH MCHC RDW Plt Count MPV Neutrophils % Lymphocytes % Monocytes % Eosinophils % Basophils % PT with INR INR PTT (Actin FS) Fibrinogen Puncture Site ABG pH ABG pCO2 at Pt Temp ABG pO2 at Pt Temp ABG HCO3 ABG O2 Sat (Measured) ABG O2 Content ABG Base Excess Giovani Test O2 Delivery Device Oxygen Flow Rate Vent Mode Vent Rate Mechanical Rate PEEP Pressure Support Vent Sodium Potassium Chloride Carbon Dioxide Anion Gap BUN Creatinine Creat Clearance w eGFR POC Glucometer [phone] Random Glucose Lactic Acid 1.1 Calcium Phosphorus Magnesium Total Bilirubin Direct Bilirubin AST ALT Alkaline Phosphatase Creatine Kinase Creatine Kinase Index CK-MB (CK-2) Troponin I Total Protein Albumin Triglycerides Cholesterol Total LDL Cholesterol HDL Cholesterol Total Amylase Beta HCG, Quant Blood Type A POSITIVE Antibody Screen Negative 05/09/17 05/09/17 05/09/17 12:59 13:00 13:00 WBC RBC Hgb Hct MCV MCH MCHC RDW Plt Count MPV Neutrophils % Lymphocytes % Monocytes % Eosinophils % Basophils % PT with INR 14.30 H 14.30 H INR 1.27 H 1.27 H PTT (Actin FS) Fibrinogen 495.0 Puncture Site ABG pH ABG pCO2 at Pt Temp ABG pO2 at Pt Temp ABG HCO3 ABG O2 Sat (Measured) ABG O2 Content ABG Base Excess Giovani Test O2 Delivery Device Oxygen Flow Rate Vent Mode Vent Rate Mechanical Rate PEEP Pressure Support Vent Sodium Potassium Chloride Carbon Dioxide Anion Gap BUN Creatinine Creat Clearance w eGFR POC Glucometer Random Glucose Lactic Acid Calcium Phosphorus Magnesium Total Bilirubin Direct Bilirubin AST ALT Alkaline Phosphatase Creatine Kinase Creatine Kinase Index CK-MB (CK-2) Troponin I Total Protein Albumin Triglycerides Cholesterol Total LDL Cholesterol HDL Cholesterol Total Amylase Beta HCG, Quant Blood Type A POSITIVE Antibody Screen 05/09/17 05/09/17 05/09/17 13:40 13:48 14:15 WBC RBC Hgb Hct MCV MCH MCHC RDW Plt Count MPV Neutrophils % Lymphocytes % Monocytes % Eosinophils % Basophils % PT with INR INR PTT (Actin FS) Fibrinogen Puncture Site Arterial line ABG pH 7.25 L ABG pCO2 at Pt Temp 40.8 ABG pO2 at Pt Temp 236.0 H* ABG HCO3 17.2 L ABG O2 Sat (Measured) 99.6 H* ABG O2 Content 17.8 ABG Base Excess -9.2 L Giovani Test Not applicable O2 Delivery Device Vent Oxygen Flow Rate 100% Vent Mode A/c Vent Rate 30 Mechanical Rate Y PEEP 12.0 Pressure Support Vent 350 Sodium Cancelled Potassium Cancelled Chloride Cancelled Carbon Dioxide Cancelled Anion Gap Cancelled BUN Cancelled Creatinine Cancelled Creat Clearance w eGFR POC Glucometer [phone] Random Glucose Cancelled Lactic Acid Calcium Cancelled Phosphorus Magnesium Total Bilirubin Direct Bilirubin AST ALT Alkaline Phosphatase Creatine Kinase Creatine Kinase Index CK-MB (CK-2) Troponin I Total Protein Albumin Triglycerides Cholesterol Total LDL Cholesterol HDL Cholesterol Total Amylase Beta HCG, Quant Blood Type Antibody Screen 05/09/17 05/09/17 05/09/17 14:15 14:15 16:57 WBC 9.7 RBC 5.31 H Hgb 13.7 D Hct 41.5 MCV 78.0 L MCH 25.9 MCHC 33.2 RDW 16.4 H Plt Count 274 D MPV 10.0 Neutrophils % Lymphocytes % Monocytes % Eosinophils % Basophils % PT with INR INR PTT (Actin FS) Fibrinogen Puncture Site ABG pH ABG pCO2 at Pt Temp ABG pO2 at Pt Temp ABG HCO3 ABG O2 Sat (Measured) ABG O2 Content ABG Base Excess Giovani Test O2 Delivery Device Oxygen Flow Rate Vent Mode Vent Rate Mechanical Rate PEEP Pressure Support Vent Sodium 136 Potassium 4.8 Chloride 104 Carbon Dioxide 19 L Anion Gap 13 BUN 18 Creatinine 3.0 H D Creat Clearance w eGFR POC Glucometer [phone] Random Glucose 442 H* D Lactic Acid Calcium < 5.0 L* Phosphorus 3.1 D Magnesium 1.8 Total Bilirubin 0.5 D Direct Bilirubin 0.1 D AST ALT Alkaline Phosphatase 51 Creatine Kinase 323 H Creatine Kinase Index 0.8 CK-MB (CK-2) 2.623 Troponin I 0.21 H Total Protein 4.2 L D Albumin 1.3 L D Triglycerides Cholesterol Total LDL Cholesterol HDL Cholesterol Total Amylase 439 H Beta HCG, Quant Blood Type Antibody Screen 05/09/17 05/09/17 05/09/17 19:27 20:00 20:00 WBC RBC Hgb Hct MCV MCH MCHC RDW Plt Count MPV Neutrophils % Lymphocytes % Monocytes % Eosinophils % Basophils % PT with INR INR PTT (Actin FS) Fibrinogen Puncture Site Arterial line ABG pH 7.13 L* ABG pCO2 at Pt Temp 43.2 ABG pO2 at Pt Temp 168.0 H* ABG HCO3 13.8 L* ABG O2 Sat (Measured) 99.0 H ABG O2 Content 16.2 ABG Base Excess -14.6 L* Giovani Test Not applicable O2 Delivery Device Vent Oxygen Flow Rate 100% Vent Mode A/c Vent Rate 30 Mechanical Rate Y PEEP 12.0 Pressure Support Vent 350 Sodium Potassium Chloride Carbon Dioxide Anion Gap BUN Creatinine Creat Clearance w eGFR POC Glucometer Random Glucose Lactic Acid Calcium Phosphorus Magnesium Total Bilirubin Direct Bilirubin AST ALT Alkaline Phosphatase Creatine Kinase 373 H Creatine Kinase Index 0.6 CK-MB (CK-2) 2.563 Troponin I Total Protein Albumin Triglycerides 661 H D Cholesterol Total LDL Cholesterol HDL Cholesterol Total Amylase Beta HCG, Quant Blood Type Antibody Screen 05/09/17 05/09/17 05/09/17 20:00 20:00 20:00 WBC 13.5 H D RBC 4.64 Hgb 11.8 D Hct 37.0 MCV 79.8 L MCH 25.4 L MCHC 31.8 L RDW 16.6 H Plt Count 205 D MPV 10.3 Neutrophils % 45.3 D Lymphocytes % 46.9 H D Monocytes % 7.0 Eosinophils % 0.1 Basophils % 0.7 PT with INR INR PTT (Actin FS) Cancelled Fibrinogen 222.0 L D Puncture Site ABG pH ABG pCO2 at Pt Temp ABG pO2 at Pt Temp ABG HCO3 ABG O2 Sat (Measured) ABG O2 Content ABG Base Excess Giovani Test O2 Delivery Device Oxygen Flow Rate Vent Mode Vent Rate Mechanical Rate PEEP Pressure Support Vent Sodium Potassium Chloride Carbon Dioxide Anion Gap BUN Creatinine Creat Clearance w eGFR POC Glucometer Random Glucose Lactic Acid Calcium Phosphorus 2.6 Magnesium Total Bilirubin Direct Bilirubin AST ALT Alkaline Phosphatase Creatine Kinase Creatine Kinase Index CK-MB (CK-2) Troponin I Total Protein Albumin Triglycerides Cholesterol Total LDL Cholesterol HDL Cholesterol Total Amylase Beta HCG, Quant Blood Type Antibody Screen 05/09/17 05/09/17 05/09/17 20:00 20:00 20:00 WBC RBC Hgb Hct MCV MCH MCHC RDW Plt Count MPV Neutrophils % Lymphocytes % Monocytes % Eosinophils % Basophils % PT with INR INR PTT (Actin FS) Fibrinogen Puncture Site ABG pH ABG pCO2 at Pt Temp ABG pO2 at Pt Temp ABG HCO3 ABG O2 Sat (Measured) ABG O2 Content ABG Base Excess Giovani Test O2 Delivery Device Oxygen Flow Rate Vent Mode Vent Rate Mechanical Rate PEEP Pressure Support Vent Sodium Potassium Chloride Carbon Dioxide Anion Gap BUN Creatinine Creat Clearance w eGFR POC Glucometer [phone] Random Glucose Lactic Acid 4.5 H* Calcium < 5.0 L* Phosphorus Magnesium Total Bilirubin Direct Bilirubin AST ALT Alkaline Phosphatase Creatine Kinase Creatine Kinase Index CK-MB (CK-2) Troponin I Total Protein Albumin Triglycerides Cholesterol Total LDL Cholesterol HDL Cholesterol Total Amylase Beta HCG, Quant Blood Type Antibody Screen 05/09/17 05/09/17 05/09/17 22:07 22:14 23:30 WBC RBC Hgb Hct MCV MCH MCHC RDW Plt Count MPV Neutrophils % Lymphocytes % Monocytes % Eosinophils % Basophils % PT with INR INR PTT (Actin FS) Fibrinogen Puncture Site ABG pH ABG pCO2 at Pt Temp ABG pO2 at Pt Temp ABG HCO3 ABG O2 Sat (Measured) ABG O2 Content ABG Base Excess Giovani Test O2 Delivery Device Oxygen Flow Rate Vent Mode Vent Rate Mechanical Rate PEEP Pressure Support Vent Sodium 139 Potassium 4.3 Chloride 108 H Carbon Dioxide 14 L D Anion Gap 17 H BUN 19 H Creatinine 3.7 H D Creat Clearance w eGFR POC Glucometer [phone] Random Glucose 338 H* D Lactic Acid 4.1 H* Calcium < 5.0 L* Phosphorus 2.6 Magnesium Total Bilirubin Direct Bilirubin AST ALT Alkaline Phosphatase Creatine Kinase Creatine Kinase Index CK-MB (CK-2) Troponin I Total Protein Albumin Triglycerides Cholesterol Total LDL Cholesterol HDL Cholesterol Total Amylase Beta HCG, Quant Blood Type Antibody Screen 05/10/17 05/10/17 05/10/17 00:16 01:15 02:00 WBC RBC Hgb Hct MCV MCH MCHC RDW Plt Count MPV Neutrophils % Lymphocytes % Monocytes % Eosinophils % Basophils % PT with INR INR PTT (Actin FS) Fibrinogen Puncture Site Arterial line ABG pH 7.17 L* ABG pCO2 at Pt Temp 37.6 ABG pO2 at Pt Temp 147.0 H D ABG HCO3 13.2 L* ABG O2 Sat (Measured) 99.2 H ABG O2 Content 16.3 ABG Base Excess -14.3 L* Giovani Test Not applicable O2 Delivery Device vent Oxygen Flow Rate 100% Vent Mode Ac Vent Rate 35 Mechanical Rate Y PEEP 12.0 Pressure Support Vent 350 Sodium Potassium Chloride Carbon Dioxide Anion Gap BUN Creatinine Creat Clearance w eGFR POC Glucometer [phone] Random Glucose Lactic Acid 3.5 H* Calcium Phosphorus Magnesium Total Bilirubin Direct Bilirubin AST ALT Alkaline Phosphatase Creatine Kinase Creatine Kinase Index CK-MB (CK-2) Troponin I Total Protein Albumin Triglycerides Cholesterol Total LDL Cholesterol HDL Cholesterol Total Amylase Beta HCG, Quant Blood Type Antibody Screen 05/10/17 05/10/17 05/10/17 02:00 02:38 05:00 WBC 11.6 H RBC 4.53 Hgb 11.7 Hct 36.0 MCV 79.5 L MCH 25.9 MCHC 32.6 RDW 16.3 H Plt Count 159 D MPV 10.5 Neutrophils % 51.3 Lymphocytes % 44.4 H Monocytes % 3.7 L Eosinophils % 0.3 D Basophils % 0.3 PT with INR INR PTT (Actin FS) Fibrinogen Puncture Site ABG pH ABG pCO2 at Pt Temp ABG pO2 at Pt Temp ABG HCO3 ABG O2 Sat (Measured) ABG O2 Content ABG Base Excess Giovani Test O2 Delivery Device Oxygen Flow Rate Vent Mode Vent Rate Mechanical Rate PEEP Pressure Support Vent Sodium 135 L Potassium 4.3 Chloride 105 Carbon Dioxide 14 L Anion Gap 16 BUN 21 H Creatinine 4.0 H Creat Clearance w eGFR POC Glucometer [phone] Random Glucose 374 H* Lactic Acid Calcium < 5.0 L* Phosphorus 3.2 D Magnesium Total Bilirubin Direct Bilirubin AST ALT Alkaline Phosphatase Creatine Kinase 819 H Creatine Kinase Index 0.7 CK-MB (CK-2) 6.438 H Troponin I 0.63 H* Total Protein Albumin Triglycerides Cholesterol Total LDL Cholesterol HDL Cholesterol Total Amylase Beta HCG, Quant Blood Type Antibody Screen 05/10/17 05/10/17 05/10/17 05:00 05:00 05:00 WBC RBC Hgb Hct MCV MCH MCHC RDW Plt Count MPV Neutrophils % Lymphocytes % Monocytes % Eosinophils % Basophils % PT with INR INR PTT (Actin FS) Fibrinogen 342.0 D Puncture Site ABG pH ABG pCO2 at Pt Temp ABG pO2 at Pt Temp ABG HCO3 ABG O2 Sat (Measured) ABG O2 Content ABG Base Excess Giovani Test O2 Delivery Device Oxygen Flow Rate Vent Mode Vent Rate Mechanical Rate PEEP Pressure Support Vent Sodium 135 L Potassium 4.1 Chloride 105 Carbon Dioxide 14 L Anion Gap 16 BUN 22 H Creatinine 4.2 H Creat Clearance w eGFR 12.51 POC Glucometer Random Glucose 310 H* Lactic Acid Calcium < 5.0 L* Phosphorus Magnesium 1.2 L D Total Bilirubin 0.8 D Direct Bilirubin AST 1042 H ALT 275 H D Alkaline Phosphatase 26 L D Creatine Kinase 990 H Creatine Kinase Index 0.7 CK-MB (CK-2) 7.801 H Troponin I 0.61 H* Total Protein 4.0 L Albumin 2.8 L D Triglycerides 704 H Cholesterol Total LDL Cholesterol HDL Cholesterol Total Amylase Beta HCG, Quant Blood Type Antibody Screen 05/10/17 05/10/17 05/10/17 05:00 07:00 12:05 WBC RBC Hgb Hct MCV MCH MCHC RDW Plt Count MPV Neutrophils % Lymphocytes % Monocytes % Eosinophils % Basophils % PT with INR INR PTT (Actin FS) Fibrinogen Puncture Site Arterial line ABG pH 7.11 L* ABG pCO2 at Pt Temp 39.4 ABG pO2 at Pt Temp 61.7 L D ABG HCO3 11.9 L* ABG O2 Sat (Measured) 89.6 L ABG O2 Content 14.0 L ABG Base Excess -16.7 L* Giovani Test Not applicable O2 Delivery Device Vent Oxygen Flow Rate 80% Vent Mode A/c Vent Rate 35 Mechanical Rate Yes PEEP 12.0 Pressure Support Vent 350 Sodium Potassium Chloride Carbon Dioxide Anion Gap BUN Creatinine Creat Clearance w eGFR POC Glucometer Random Glucose Lactic Acid 2.3 H* Calcium Phosphorus Magnesium Total Bilirubin Direct Bilirubin AST ALT Alkaline Phosphatase Creatine Kinase Creatine Kinase Index CK-MB (CK-2) Troponin I Total Protein Albumin Triglycerides Cholesterol Total LDL Cholesterol HDL Cholesterol Total Amylase Beta HCG, Quant < 1.0 Blood Type Antibody Screen Problem List - Problems (1) Pancreatitis Code(s): K85.90 - ACUTE PANCREATITIS WITHOUT NECROSIS OR INFECTION, UNSP (2) DKA (diabetic ketoacidoses) Code(s): E13.10 - OTH DIABETES MELLITUS WITH KETOACIDOSIS WITHOUT COMA Assessment/Plan Acute Respiratory Failure Suspected Anoxic Brain injury progressing to Brain . Morbid obesity DKA HTN Pancreatitis likley 2/2 hyperlipidemia/triglyceridemia ARDS ARF ARDS vent strategy Strict I&O Monitor off sedation to assess her mental status Will need assessment for continued pheresis Unlikely she will be able to tolerate HD due to persistent shock state NPO Neurology evaluation Insulin drip for glycemic control Overall prognosis appears grave, will need family meetings for GOC Dr Chen Critical care time spent in reviewing chart, evaluating patient and formulating plan - 40 minutes.
[2017-05-10] MEDS ORDERED: CALCIUM CHLORIDE 1 GM/10 ML *DISP.SYRIN ONE (13:02)
--- NOTE | 2017-05-10 13:10 | PN ---
Progress Note, Physician History of Present Illness: Pt seen and examined at bedside. She remains in the ICU. Pt remains intubated and mechanically ventilated. She is now on 4 pressor agents. I discussed with case with the ICU team and reviewed the chart. - Current Medication List Current Medications: Active Medications Albuterol Sulfate (Ventolin 0.083% Nebulizer Soln -) 1 amp NEB Q6H PRN PRN Reason: SHORT OF BREATH/WHEEZING Chlorhexidine Gluconate (Hibiclens For Decolonization -) 1 applic TP HS LUNA Last Admin: 05/09/17 22:44 Dose: 1 applic Heparin Sodium (Porcine) (Heparin -) 5,000 unit SQ TID LUNA Last Admin: 05/10/17 05:54 Dose: 5,000 unit Insulin Human Regular 100 (units/ Sodium Chloride) 100 mls @ 12.42 mls/hr IVPB TITR LUNA; 0.1 UNITS/KG/HR PRN Reason: Protocol Last Admin: 05/10/17 05:00 Dose: 15 mls/hr Fentanyl 500 mcg/ Dextrose 100 mls @ 15 mls/hr IJ TITR LUNA PRN Reason: 75 MCG/HR Last Admin: 05/10/17 09:34 Dose: Not Given Midazolam HCl 100 mg/ Sodium (Chloride) 100 mls @ 4 mls/hr IVPB TITR LUNA; 4 MG/ HR PRN Reason: Protocol Last Titration: 05/10/17 04:05 Dose: 0 mg/hr Norepinephrine Bitartrate 8, (000 mcg/ Dextrose) 500 mls @ 18.75 mls/hr IV TITR LUNA; 5 MCG/MIN PRN Reason: Protocol Last Admin: 05/09/17 23:00 Dose: 150 mls/hr Phenylephrine HCl 20,000 mcg/ (Sodium Chloride) 250 mls @ 75 mls/hr IVPB ASDIR LUNA; 100 MCG/MIN PRN Reason: Protocol Last Titration: 05/10/17 04:00 Dose: 150 mcg/min Vasopressin 50 units/ Sodium (Chloride) 100 mls @ 4 mls/hr IVPB ASDIR LUNA; 2 UNITS/HR PRN Reason: Protocol Last Admin: 05/10/17 03:00 Dose: 8 mls/hr Doxycycline Hyclate 100 mg/ (Dextrose) 100 mls @ 100 mls/hr IVPB Q12H LUNA Last Admin: 05/10/17 02:11 Dose: 100 mls/hr Sodium Chloride (Normal Saline -) 1,000 mls @ 200 mls/hr IV ASDIR LUNA Last Admin: 05/10/17 02:00 Dose: 200 mls/hr Epinephrine HCl 1,000 mcg/ (Sodium Chloride) 250 mls @ 180.84 mls/hr IV ASDIR LUNA; 0.1 MCG/KG/MIN PRN Reason: Protocol Last Admin: 05/10/17 02:00 Dose: 150 mls/hr Meropenem 1 gm/ Dextrose 100 mls @ 200 mls/hr IVPB Q12H LUNA Midazolam HCl (Versed -) 4 mg IVPUSH Q2H PRN PRN Reason: AGITATION Last Admin: 05/09/17 14:00 Dose: 4 mg Mupirocin (Bactroban Ointment (For Decolonization) -) 1 applic NS BID LUNA Stop: 05/13/17 21:59 Last Admin: 05/10/17 09:34 Dose: 1 applic - Objective Vital Signs: Vital Signs Temperature 98.7 F 05/10/17 10:00 Pulse Rate 101 H 05/10/17 11:11 Respiratory Rate 35 H 05/10/17 11:11 Blood Pressure 107/68 05/10/17 11:11 O2 Sat by Pulse Oximetry (%) 98 05/10/17 09:43 Constitutional: Yes: Calm Cardiovascular: Yes: S1, S2 Respiratory: Yes: Mechanically Ventilated Gastrointestinal: Yes: Abdomen, Obese Genitourinary: Yes: Hugo Present Musculoskeletal: Yes: Muscle Weakness Edema: Yes Edema: LUE: Trace, RUE: Trace Integumentary: Yes: Tattoos Neurological: Yes: Lethargy Labs: CBC, BMP 05/10/17 05:00 05/10/17 05:00 INR, PTT INR 1.27 (0.82-1.09) H 05/09/17 13:00 Fibrinogen 342.0 mg/dL (238-498) D 05/10/17 05:00 Laboratory Tests 05/08/17 05/09/17 05/10/17 17:45 00:30 02:00 Sodium Potassium Chloride Carbon Dioxide Anion Gap BUN Creatinine Urine Color Ltyellow Urine Appearance Slcloudy Urine pH 5.0 Ur Specific Bradford 1.015 Urine Protein 3+ H Urine Glucose (UA) 3+ H Urine Ketones 2+ H Urine Blood 1+ H Hepatitis A IgM Ab Pending Pending Hep Bs Antigen Pending Pending Hep B Core IgM Ab Pending Pending Hepatitis C Ab (EIA) Pending Pending 05/10/17 05:00 Sodium 135 L Potassium 4.1 Chloride 105 Carbon Dioxide 14 L Anion Gap 16 BUN 22 H Creatinine 4.2 H Urine Color Urine Appearance Urine pH Ur Specific Bradford Urine Protein Urine Glucose (UA) Urine Ketones Urine Blood Hepatitis A IgM Ab Hep Bs Antigen Hep B Core IgM Ab Hepatitis C Ab (EIA) - ....Imaging Chest X-ray: Report Reviewed Assessment/Plan Current Medications Generic Name Dose Route Start Last Admin Trade Name Freq PRN Reason Stop Dose Admin Albuterol Sulfate 1 amp 05/08/17 23:55 Ventolin 0.083% Nebulizer Soln - NEB Q6H PRN SHORT OF BREATH/WHEEZING Chlorhexidine Gluconate 1 applic 05/08/17 22:00 05/09/17 22:44 Hibiclens For Decolonization - TP 1 applic HS LUNA Administration Heparin Sodium (Porcine) 5,000 unit 05/09/17 06:00 05/10/17 05:54 Heparin - SQ 5,000 unit TID LUNA Administration Insulin Human Regular 100 100 mls @ 12.42 mls/hr 05/08/17 18:30 05/10/17 05:00 units/ Sodium Chloride IVPB 15 mls/hr TITR LUNA Administration Protocol 0.1 UNITS/KG/HR Fentanyl 500 mcg/ Dextrose 100 mls @ 15 mls/hr 05/09/17 10:30 05/10/17 09:34 IJ Not Given TITR LUNA 75 MCG/HR Midazolam HCl 100 mg/ Sodium 100 mls @ 4 mls/hr 05/09/17 12:30 05/10/17 04:05 Chloride IVPB 0 mg/hr TITR LUNA Titration Protocol 4 MG/HR Norepinephrine Bitartrate 8, 500 mls @ 18.75 mls/hr 05/09/17 16:00 05/09/17 23: 00 000 mcg/ Dextrose IV 150 mls/hr TITR LNUA Administration Protocol 5 MCG/MIN Phenylephrine HCl 20,000 mcg/ 250 mls @ 75 mls/hr 05/09/17 16:00 05/10/17 04:00 Sodium Chloride IVPB 150 mcg/min ASDIR LUNA Titration Protocol 100 MCG/MIN Vasopressin 50 units/ Sodium 100 mls @ 4 mls/hr 05/09/17 16:00 05/10/17 03:00 Chloride IVPB 8 mls/hr ASDIR LUNA Administration Protocol 2 UNITS/HR Doxycycline Hyclate 100 mg/ 100 mls @ 100 mls/hr 05/10/17 02:00 05/10/17 02:11 Dextrose IVPB 100 mls/hr Q12H LUNA Administration Sodium Chloride 1,000 mls @ 200 mls/hr 05/10/17 00:45 05/10/17 02:00 Normal Saline - IV 200 mls/hr ASDIR LUNA Administration Epinephrine HCl 1,000 mcg/ 250 mls @ 180.84 mls/hr 05/10/17 00:53 05/10/17 02: 00 Sodium Chloride IV 150 mls/hr ASDIR LUNA Administration Protocol 0.1 MCG/KG/MIN Meropenem 1 gm/ Dextrose 100 mls @ 200 mls/hr 05/10/17 14:00 IVPB Q12H LUNA Midazolam HCl 4 mg 05/09/17 10:22 05/09/17 14:00 Versed - IVPUSH 4 mg Q2H PRN Administration AGITATION Mupirocin 1 applic 05/08/17 22:00 05/10/17 09:34 Bactroban Ointment (For Decolonization) - NS 05/13/17 21:59 1 applic BID LUNA Administration Impression 1. ABBEY 2. pancreatities 3. ARDS 4. shock 5. acute respiratory failure 6. DKA 7. hypotension 8. hypocalcemia 9. hypertriglyceridemia 10. multi-organ system failure 11. hypomagnesemia Plan - discussed with ICU team - plasma exchange per heme - replace calcium - pt is now on 4 pressors - neurology evaluation - will order serologic workup for ABBEY as creatinine is worsening - kidneys unremarkable on abdominal ultrasound - neuro eval as she does not have pupilary reflex - replace magnesium - check stat cxr - vent support - monitor blood pressure - prognosis is poor - check pth - discussed with medical attending
[2017-05-10] MEDS ORDERED: MAGNESIUM SULF 50% (8.12 MEQ/2 ML-1 GM VIAL) IVPB ONE (13:22)
[2017-05-10] MEDS ORDERED: CALCIUM GLUCONATE 10% - 1,000 MG/10 ML VIAL IVPB ONE ×2 (13:24→22:22)
[2017-05-10] MEDS ORDERED: SODIUM CHLORIDE 0.45% 1,000 ML with SODIUM BICARBONATE 8.4% - 75 MEQ IV SCH (13:30)
--- NOTE | 2017-05-10 13:36 | PN ---
Physical Exam: SUBJECTIVE: Patient seen and examined Patient was examined at bedside in the ICU. She is intubated and mechanically ventilated and on 4 pressors. OBJECTIVE: Vital Signs Period Temp Pulse Resp BP Sys/Pena Pulse Ox Last 24 Hr 98.7 F-102.2 F 94-143 30-46 74-121/45-79 98-100 GENERAL: The patient is intubated and on ventilation. HEAD: Normal with no signs of trauma. EYES: Fixed, dilated and not responsive to light b/l ENT: Ears normal, nares patent, oropharynx clear without exudates, moist mucous membranes. NECK: Trachea midline LUNGS: Breath sounds equal, clear to auscultation bilaterally, no wheezes, no crackles, no accessory muscle use. HEART: Regular rate and rhythm, S1, S2 without murmur, rub or gallop. ABDOMEN: Soft, nondistended, normoactive bowel sounds, no guarding, no rebound, no hepatosplenomegaly, no masses. EXTREMITIES: 2+ pulses, warm, well-perfused, no edema. NEUROLOGICAL: Non-responsive to pain, no corneal reflex. SKIN: Warm, dry, normal turgor, no rashes or lesions noted Laboratory Results - last 24 hr 05/08/17 05/09/17 05/09/17 22:41 00:12 01:43 WBC RBC Hgb Hct MCV MCH MCHC RDW Plt Count MPV Neutrophils % Lymphocytes % Monocytes % Eosinophils % Basophils % PT with INR INR PTT (Actin FS) Fibrinogen Puncture Site ABG pH ABG pCO2 at Pt Temp ABG pO2 at Pt Temp ABG HCO3 ABG O2 Sat (Measured) ABG O2 Content ABG Base Excess Giovani Test O2 Delivery Device Oxygen Flow Rate Vent Mode Vent Rate Mechanical Rate PEEP Pressure Support Vent Sodium Potassium Chloride Carbon Dioxide Anion Gap BUN Creatinine Creat Clearance w eGFR POC Glucometer [phone] Random Glucose Lactic Acid Calcium Phosphorus Magnesium Total Bilirubin Direct Bilirubin AST ALT Alkaline Phosphatase Creatine Kinase Creatine Kinase Index CK-MB (CK-2) Troponin I Total Protein Albumin Triglycerides Cholesterol Total LDL Cholesterol HDL Cholesterol Total Amylase Beta HCG, Quant Blood Type Antibody Screen 05/09/17 05/09/17 05/09/17 02:55 03:53 05:26 WBC RBC Hgb Hct MCV MCH MCHC RDW Plt Count MPV Neutrophils % Lymphocytes % Monocytes % Eosinophils % Basophils % PT with INR INR PTT (Actin FS) Fibrinogen Puncture Site ABG pH ABG pCO2 at Pt Temp ABG pO2 at Pt Temp ABG HCO3 ABG O2 Sat (Measured) ABG O2 Content ABG Base Excess Giovani Test O2 Delivery Device Oxygen Flow Rate Vent Mode Vent Rate Mechanical Rate PEEP Pressure Support Vent Sodium Potassium Chloride Carbon Dioxide Anion Gap BUN Creatinine Creat Clearance w eGFR POC Glucometer [phone] Random Glucose Lactic Acid Calcium Phosphorus Magnesium Total Bilirubin Direct Bilirubin AST ALT Alkaline Phosphatase Creatine Kinase Creatine Kinase Index CK-MB (CK-2) Troponin I Total Protein Albumin Triglycerides Cholesterol Total LDL Cholesterol HDL Cholesterol Total Amylase Beta HCG, Quant Blood Type Antibody Screen 05/09/17 05/09/17 05/09/17 05:45 07:30 08:42 WBC RBC Hgb Hct MCV MCH MCHC RDW Plt Count MPV Neutrophils % Lymphocytes % Monocytes % Eosinophils % Basophils % PT with INR INR PTT (Actin FS) Fibrinogen Puncture Site ABG pH ABG pCO2 at Pt Temp ABG pO2 at Pt Temp ABG HCO3 ABG O2 Sat (Measured) ABG O2 Content ABG Base Excess Giovani Test O2 Delivery Device Oxygen Flow Rate Vent Mode Vent Rate Mechanical Rate PEEP Pressure Support Vent Sodium Potassium Chloride Carbon Dioxide Anion Gap BUN Creatinine Creat Clearance w eGFR POC Glucometer [phone] Random Glucose Lactic Acid Calcium Phosphorus Magnesium Total Bilirubin Direct Bilirubin AST ALT Alkaline Phosphatase Creatine Kinase Creatine Kinase Index CK-MB (CK-2) Troponin I Total Protein Albumin Triglycerides > 1000 H D Cholesterol 973 H* Total LDL Cholesterol 90 HDL Cholesterol 48 Total Amylase Beta HCG, Quant Blood Type Antibody Screen 05/09/17 05/09/17 05/09/17 11:24 12:35 13:00 WBC RBC Hgb Hct MCV MCH MCHC RDW Plt Count MPV Neutrophils % Lymphocytes % Monocytes % Eosinophils % Basophils % PT with INR 14.30 H INR 1.27 H PTT (Actin FS) Fibrinogen Puncture Site ABG pH ABG pCO2 at Pt Temp ABG pO2 at Pt Temp ABG HCO3 ABG O2 Sat (Measured) ABG O2 Content ABG Base Excess Giovani Test O2 Delivery Device Oxygen Flow Rate Vent Mode Vent Rate Mechanical Rate PEEP Pressure Support Vent Sodium Potassium Chloride Carbon Dioxide Anion Gap BUN Creatinine Creat Clearance w eGFR POC Glucometer [phone] Random Glucose Lactic Acid Calcium Phosphorus Magnesium Total Bilirubin Direct Bilirubin AST ALT Alkaline Phosphatase Creatine Kinase Creatine Kinase Index CK-MB (CK-2) Troponin I Total Protein Albumin Triglycerides Cholesterol Total LDL Cholesterol HDL Cholesterol Total Amylase Beta HCG, Quant Blood Type A POSITIVE Antibody Screen Negative 05/09/17 05/09/17 05/09/17 13:00 13:40 13:48 WBC RBC Hgb Hct MCV MCH MCHC RDW Plt Count MPV Neutrophils % Lymphocytes % Monocytes % Eosinophils % Basophils % PT with INR 14.30 H INR 1.27 H PTT (Actin FS) Fibrinogen 495.0 Puncture Site Arterial line ABG pH 7.25 L ABG pCO2 at Pt Temp 40.8 ABG pO2 at Pt Temp 236.0 H* ABG HCO3 17.2 L ABG O2 Sat (Measured) 99.6 H* ABG O2 Content 17.8 ABG Base Excess -9.2 L Giovani Test Not applicable O2 Delivery Device Vent Oxygen Flow Rate 100% Vent Mode A/c Vent Rate 30 Mechanical Rate Y PEEP 12.0 Pressure Support Vent 350 Sodium Potassium Chloride Carbon Dioxide Anion Gap BUN Creatinine Creat Clearance w eGFR POC Glucometer [phone] Random Glucose Lactic Acid Calcium Phosphorus Magnesium Total Bilirubin Direct Bilirubin AST ALT Alkaline Phosphatase Creatine Kinase Creatine Kinase Index CK-MB (CK-2) Troponin I Total Protein Albumin Triglycerides Cholesterol Total LDL Cholesterol HDL Cholesterol Total Amylase Beta HCG, Quant Blood Type Antibody Screen 05/09/17 05/09/17 05/09/17 14:15 14:15 14:15 WBC 9.7 RBC 5.31 H Hgb 13.7 D Hct 41.5 MCV 78.0 L MCH 25.9 MCHC 33.2 RDW 16.4 H Plt Count 274 D MPV 10.0 Neutrophils % Lymphocytes % Monocytes % Eosinophils % Basophils % PT with INR INR PTT (Actin FS) Fibrinogen Puncture Site ABG pH ABG pCO2 at Pt Temp ABG pO2 at Pt Temp ABG HCO3 ABG O2 Sat (Measured) ABG O2 Content ABG Base Excess Giovani Test O2 Delivery Device Oxygen Flow Rate Vent Mode Vent Rate Mechanical Rate PEEP Pressure Support Vent Sodium Cancelled 136 Potassium Cancelled 4.8 Chloride Cancelled 104 Carbon Dioxide Cancelled 19 L Anion Gap Cancelled 13 BUN Cancelled 18 Creatinine Cancelled 3.0 H D Creat Clearance w eGFR POC Glucometer Random Glucose Cancelled 442 H* D Lactic Acid Calcium Cancelled < 5.0 L* Phosphorus 3.1 D Magnesium 1.8 Total Bilirubin 0.5 D Direct Bilirubin 0.1 D AST ALT Alkaline Phosphatase 51 Creatine Kinase 323 H Creatine Kinase Index 0.8 CK-MB (CK-2) 2.623 Troponin I 0.21 H Total Protein 4.2 L D Albumin 1.3 L D Triglycerides Cholesterol Total LDL Cholesterol HDL Cholesterol Total Amylase 439 H Beta HCG, Quant Blood Type Antibody Screen 05/09/17 05/09/17 05/09/17 16:57 19:27 20:00 WBC RBC Hgb Hct MCV MCH MCHC RDW Plt Count MPV Neutrophils % Lymphocytes % Monocytes % Eosinophils % Basophils % PT with INR INR PTT (Actin FS) Fibrinogen Puncture Site Arterial line ABG pH 7.13 L* ABG pCO2 at Pt Temp 43.2 ABG pO2 at Pt Temp 168.0 H* ABG HCO3 13.8 L* ABG O2 Sat (Measured) 99.0 H ABG O2 Content 16.2 ABG Base Excess -14.6 L* Giovani Test Not applicable O2 Delivery Device Vent Oxygen Flow Rate 100% Vent Mode A/c Vent Rate 30 Mechanical Rate Y PEEP 12.0 Pressure Support Vent 350 Sodium Potassium Chloride Carbon Dioxide Anion Gap BUN Creatinine Creat Clearance w eGFR POC Glucometer [phone] Random Glucose Lactic Acid Calcium Phosphorus Magnesium Total Bilirubin Direct Bilirubin AST ALT Alkaline Phosphatase Creatine Kinase Creatine Kinase Index CK-MB (CK-2) Troponin I Total Protein Albumin Triglycerides 661 H D Cholesterol Total LDL Cholesterol HDL Cholesterol Total Amylase Beta HCG, Quant Blood Type Antibody Screen 05/09/17 05/09/17 05/09/17 20:00 20:00 20:00 WBC 13.5 H D RBC 4.64 Hgb 11.8 D Hct 37.0 MCV 79.8 L MCH 25.4 L MCHC 31.8 L RDW 16.6 H Plt Count 205 D MPV 10.3 Neutrophils % 45.3 D Lymphocytes % 46.9 H D Monocytes % 7.0 Eosinophils % 0.1 Basophils % 0.7 PT with INR INR PTT (Actin FS) Cancelled Fibrinogen 222.0 L D Puncture Site ABG pH ABG pCO2 at Pt Temp ABG pO2 at Pt Temp ABG HCO3 ABG O2 Sat (Measured) ABG O2 Content ABG Base Excess Giovani Test O2 Delivery Device Oxygen Flow Rate Vent Mode Vent Rate Mechanical Rate PEEP Pressure Support Vent Sodium Potassium Chloride Carbon Dioxide Anion Gap BUN Creatinine Creat Clearance w eGFR POC Glucometer Random Glucose Lactic Acid Calcium Phosphorus Magnesium Total Bilirubin Direct Bilirubin AST ALT Alkaline Phosphatase Creatine Kinase 373 H Creatine Kinase Index 0.6 CK-MB (CK-2) 2.563 Troponin I Total Protein Albumin Triglycerides Cholesterol Total LDL Cholesterol HDL Cholesterol Total Amylase Beta HCG, Quant Blood Type Antibody Screen 05/09/17 05/09/17 05/09/17 20:00 20:00 20:00 WBC RBC Hgb Hct MCV MCH MCHC RDW Plt Count MPV Neutrophils % Lymphocytes % Monocytes % Eosinophils % Basophils % PT with INR INR PTT (Actin FS) Fibrinogen Puncture Site ABG pH ABG pCO2 at Pt Temp ABG pO2 at Pt Temp ABG HCO3 ABG O2 Sat (Measured) ABG O2 Content ABG Base Excess Giovani Test O2 Delivery Device Oxygen Flow Rate Vent Mode Vent Rate Mechanical Rate PEEP Pressure Support Vent Sodium Potassium Chloride Carbon Dioxide Anion Gap BUN Creatinine Creat Clearance w eGFR POC Glucometer Random Glucose Lactic Acid 4.5 H* Calcium < 5.0 L* Phosphorus 2.6 Magnesium Total Bilirubin Direct Bilirubin AST ALT Alkaline Phosphatase Creatine Kinase Creatine Kinase Index CK-MB (CK-2) Troponin I Total Protein Albumin Triglycerides Cholesterol Total LDL Cholesterol HDL Cholesterol Total Amylase Beta HCG, Quant Blood Type Antibody Screen 05/09/17 05/09/17 05/09/17 20:00 22:07 22:14 WBC RBC Hgb Hct MCV MCH MCHC RDW Plt Count MPV Neutrophils % Lymphocytes % Monocytes % Eosinophils % Basophils % PT with INR INR PTT (Actin FS) Fibrinogen Puncture Site ABG pH ABG pCO2 at Pt Temp ABG pO2 at Pt Temp ABG HCO3 ABG O2 Sat (Measured) ABG O2 Content ABG Base Excess Giovani Test O2 Delivery Device Oxygen Flow Rate Vent Mode Vent Rate Mechanical Rate PEEP Pressure Support Vent Sodium Potassium Chloride Carbon Dioxide Anion Gap BUN Creatinine Creat Clearance w eGFR POC Glucometer [phone] Random Glucose Lactic Acid 4.1 H* Calcium Phosphorus Magnesium Total Bilirubin Direct Bilirubin AST ALT Alkaline Phosphatase Creatine Kinase Creatine Kinase Index CK-MB (CK-2) Troponin I Total Protein Albumin Triglycerides Cholesterol Total LDL Cholesterol HDL Cholesterol Total Amylase Beta HCG, Quant Blood Type Antibody Screen 05/09/17 05/10/17 05/10/17 23:30 00:16 01:15 WBC RBC Hgb Hct MCV MCH MCHC RDW Plt Count MPV Neutrophils % Lymphocytes % Monocytes % Eosinophils % Basophils % PT with INR INR PTT (Actin FS) Fibrinogen Puncture Site Arterial line ABG pH 7.17 L* ABG pCO2 at Pt Temp 37.6 ABG pO2 at Pt Temp 147.0 H D ABG HCO3 13.2 L* ABG O2 Sat (Measured) 99.2 H ABG O2 Content 16.3 ABG Base Excess -14.3 L* Giovani Test Not applicable O2 Delivery Device vent Oxygen Flow Rate 100% Vent Mode Ac Vent Rate 35 Mechanical Rate Y PEEP 12.0 Pressure Support Vent 350 Sodium 139 Potassium 4.3 Chloride 108 H Carbon Dioxide 14 L D Anion Gap 17 H BUN 19 H Creatinine 3.7 H D Creat Clearance w eGFR POC Glucometer [phone] Random Glucose 338 H* D Lactic Acid Calcium < 5.0 L* Phosphorus 2.6 Magnesium Total Bilirubin Direct Bilirubin AST ALT Alkaline Phosphatase Creatine Kinase Creatine Kinase Index CK-MB (CK-2) Troponin I Total Protein Albumin Triglycerides Cholesterol Total LDL Cholesterol HDL Cholesterol Total Amylase Beta HCG, Quant Blood Type Antibody Screen 05/10/17 05/10/17 05/10/17 02:00 02:00 02:38 WBC RBC Hgb Hct MCV MCH MCHC RDW Plt Count MPV Neutrophils % Lymphocytes % Monocytes % Eosinophils % Basophils % PT with INR INR PTT (Actin FS) Fibrinogen Puncture Site ABG pH ABG pCO2 at Pt Temp ABG pO2 at Pt Temp ABG HCO3 ABG O2 Sat (Measured) ABG O2 Content ABG Base Excess Giovani Test O2 Delivery Device Oxygen Flow Rate Vent Mode Vent Rate Mechanical Rate PEEP Pressure Support Vent Sodium 135 L Potassium 4.3 Chloride 105 Carbon Dioxide 14 L Anion Gap 16 BUN 21 H Creatinine 4.0 H Creat Clearance w eGFR POC Glucometer [phone] Random Glucose 374 H* Lactic Acid 3.5 H* Calcium < 5.0 L* Phosphorus 3.2 D Magnesium Total Bilirubin Direct Bilirubin AST ALT Alkaline Phosphatase Creatine Kinase 819 H Creatine Kinase Index 0.7 CK-MB (CK-2) 6.438 H Troponin I 0.63 H* Total Protein Albumin Triglycerides Cholesterol Total LDL Cholesterol HDL Cholesterol Total Amylase Beta HCG, Quant Blood Type Antibody Screen 05/10/17 05/10/17 05/10/17 05:00 05:00 05:00 WBC 11.6 H RBC 4.53 Hgb 11.7 Hct 36.0 MCV 79.5 L MCH 25.9 MCHC 32.6 RDW 16.3 H Plt Count 159 D MPV 10.5 Neutrophils % 51.3 Lymphocytes % 44.4 H Monocytes % 3.7 L Eosinophils % 0.3 D Basophils % 0.3 PT with INR INR PTT (Actin FS) Fibrinogen 342.0 D Puncture Site ABG pH ABG pCO2 at Pt Temp ABG pO2 at Pt Temp ABG HCO3 ABG O2 Sat (Measured) ABG O2 Content ABG Base Excess Giovani Test O2 Delivery Device Oxygen Flow Rate Vent Mode Vent Rate Mechanical Rate PEEP Pressure Support Vent Sodium 135 L Potassium 4.1 Chloride 105 Carbon Dioxide 14 L Anion Gap 16 BUN 22 H Creatinine 4.2 H Creat Clearance w eGFR 12.51 POC Glucometer Random Glucose 310 H* Lactic Acid Calcium < 5.0 L* Phosphorus Magnesium 1.2 L D Total Bilirubin 0.8 D Direct Bilirubin AST 1042 H ALT 275 H D Alkaline Phosphatase 26 L D Creatine Kinase Creatine Kinase Index CK-MB (CK-2) Troponin I Total Protein 4.0 L Albumin 2.8 L D Triglycerides 704 H Cholesterol Total LDL Cholesterol HDL Cholesterol Total Amylase Beta HCG, Quant Blood Type Antibody Screen 05/10/17 05/10/17 05/10/17 05:00 05:00 07:00 WBC RBC Hgb Hct MCV MCH MCHC RDW Plt Count MPV Neutrophils % Lymphocytes % Monocytes % Eosinophils % Basophils % PT with INR INR PTT (Actin FS) Fibrinogen Puncture Site ABG pH ABG pCO2 at Pt Temp ABG pO2 at Pt Temp ABG HCO3 ABG O2 Sat (Measured) ABG O2 Content ABG Base Excess Giovani Test O2 Delivery Device Oxygen Flow Rate Vent Mode Vent Rate Mechanical Rate PEEP Pressure Support Vent Sodium Potassium Chloride Carbon Dioxide Anion Gap BUN Creatinine Creat Clearance w eGFR POC Glucometer Random Glucose Lactic Acid 2.3 H* Calcium Phosphorus Magnesium Total Bilirubin Direct Bilirubin AST ALT Alkaline Phosphatase Creatine Kinase 990 H Creatine Kinase Index 0.7 CK-MB (CK-2) 7.801 H Troponin I 0.61 H* Total Protein Albumin Triglycerides Cholesterol Total LDL Cholesterol HDL Cholesterol Total Amylase Beta HCG, Quant < 1.0 Blood Type Antibody Screen 05/10/17 12:05 WBC RBC Hgb Hct MCV MCH MCHC RDW Plt Count MPV Neutrophils % Lymphocytes % Monocytes % Eosinophils % Basophils % PT with INR INR PTT (Actin FS) Fibrinogen Puncture Site Arterial line ABG pH 7.11 L* ABG pCO2 at Pt Temp 39.4 ABG pO2 at Pt Temp 61.7 L D ABG HCO3 11.9 L* ABG O2 Sat (Measured) 89.6 L ABG O2 Content 14.0 L ABG Base Excess -16.7 L* Giovani Test Not applicable O2 Delivery Device Vent Oxygen Flow Rate 80% Vent Mode A/c Vent Rate 35 Mechanical Rate Yes PEEP 12.0 Pressure Support Vent 350 Sodium Potassium Chloride Carbon Dioxide Anion Gap BUN Creatinine Creat Clearance w eGFR POC Glucometer Random Glucose Lactic Acid Calcium Phosphorus Magnesium Total Bilirubin Direct Bilirubin AST ALT Alkaline Phosphatase Creatine Kinase Creatine Kinase Index CK-MB (CK-2) Troponin I Total Protein Albumin Triglycerides Cholesterol Total LDL Cholesterol HDL Cholesterol Total Amylase Beta HCG, Quant Blood Type Antibody Screen Active Medications Generic Name Dose Route Start Last Admin Trade Name Freq PRN Reason Stop Dose Admin Albuterol Sulfate 1 amp 05/08/17 23:55 Ventolin 0.083% Nebulizer Soln - NEB Q6H PRN SHORT OF BREATH/WHEEZING Chlorhexidine Gluconate 1 applic 05/08/17 22:00 05/09/17 22:44 Hibiclens For Decolonization - TP 1 applic HS LUNA Administration Heparin Sodium (Porcine) 5,000 unit 05/09/17 06:00 05/10/17 05:54 Heparin - SQ 5,000 unit TID LUNA Administration Hydrocortisone Sodium Succinate 100 mg 05/10/17 13:30 Solu-Cortef - IVPB Q8H LUNA Insulin Human Regular 100 100 mls @ 12.42 mls/hr 05/08/17 18:30 05/10/17 05:00 units/ Sodium Chloride IVPB 15 mls/hr TITR LUNA Administration Protocol 0.1 UNITS/KG/HR Fentanyl 500 mcg/ Dextrose 100 mls @ 15 mls/hr 05/09/17 10:30 05/10/17 09:34 IJ Not Given TITR LUNA 75 MCG/HR Midazolam HCl 100 mg/ Sodium 100 mls @ 4 mls/hr 05/09/17 12:30 05/10/17 04:05 Chloride IVPB 0 mg/hr TITR LUNA Titration Protocol 4 MG/HR Norepinephrine Bitartrate 8, 500 mls @ 18.75 mls/hr 05/09/17 16:00 05/09/17 23: 00 000 mcg/ Dextrose IV 150 mls/hr TITR LUNA Administration Protocol 5 MCG/MIN Phenylephrine HCl 20,000 mcg/ 250 mls @ 75 mls/hr 05/09/17 16:00 05/10/17 04:00 Sodium Chloride IVPB 150 mcg/min ASDIR LUNA Titration Protocol 100 MCG/MIN Vasopressin 50 units/ Sodium 100 mls @ 4 mls/hr 05/09/17 16:00 05/10/17 03:00 Chloride IVPB 8 mls/hr ASDIR LUNA Administration Protocol 2 UNITS/HR Doxycycline Hyclate 100 mg/ 100 mls @ 100 mls/hr 05/10/17 02:00 05/10/17 02:11 Dextrose IVPB 100 mls/hr Q12H LUNA Administration Sodium Chloride 1,000 mls @ 200 mls/hr 05/10/17 00:45 05/10/17 02:00 Normal Saline - IV 200 mls/hr ASDIR LUNA Administration Epinephrine HCl 1,000 mcg/ 250 mls @ 180.84 mls/hr 05/10/17 00:53 05/10/17 02: 00 Sodium Chloride IV 150 mls/hr ASDIR LUNA Administration Protocol 0.1 MCG/KG/MIN Meropenem 1 gm/ Dextrose 100 mls @ 200 mls/hr 05/10/17 14:00 IVPB Q12H LUNA Midazolam HCl 4 mg 05/09/17 10:22 05/09/17 14:00 Versed - IVPUSH 4 mg Q2H PRN Administration AGITATION Mupirocin 1 applic 05/08/17 22:00 05/10/17 09:34 Bactroban Ointment (For Decolonization) - NS 05/13/17 21:59 1 applic BID LUNA Administration ASSESSMENT/PLAN: Impression 1. Decreased Neurological Status 2. Shock 3. Hypotension, on 4 pressors 4. ABBEY 5. Pancreatitis 6. DKA 7. acute respiratory failure 8. ARDS 9. multi-organ system failure 10. hypocalcemia 11. hypertriglyceridemia 12. hypomagnesemia Plan - neurology evaluation, loss of pupillary reflex - vent support - replace calcium, start drip, CA checks q2hr - replace magnesium - monitor blood pressure - prognosis is poor Visit type - Emergency Visit Emergency Visit: No - New Patient This patient is new to me today: Yes Date on this admission: 05/10/17 - Critical Care Critical Care patient: Yes Total Critical Care Time (in minutes): 45 Critical Care Statement: The care of this patient involved high complexity decision making to prevent further life threatening deterioration of the patient 's condition and/or to evaluate & treat vital organ system(s) failure or risk of failure.
[2017-05-10 13:44] LABS: ANION GAP 16 (8-16); CO2 13 mmol/L (21-32); CREATININE 3.9 mg/dL (0.55-1.02); GLUCOSE,RANDOM 210 mg/dL (74-106); PHOSPHOROUS 4.2 mg/dL (2.5-4.9)
--- NOTE | 2017-05-10 13:45 | PN ---
Teaching Attending Note Name of Resident: Jose Aleman ATTENDING PHYSICIAN STATEMENT I saw and evaluated the patient. I reviewed the resident's note and discussed the case with the resident. I agree with the resident's findings and plan as documented. SUBJECTIVE: no events over night OBJECTIVE: intubated, off sedation , not reactive to sternal rub. dilated pupils, not reactive to light . no corneal reflex. absent Doll's eyes CV: regular rhythm , NO MRG Lungs: b/l course breath sounds . clear bases ABd: distended ,No BS .dullness all over . EXt : no edema . DP 2+ b/l. 1+ RP b/l Assessment/Plan: 27 y/o lady with h/o Asthma , who presented with Abd pain , and was found to have DKA, acute pancreatitis and severe hypertricglyceredemia. 1- Hypertriglyceredemia induced acute pancreatitis. - s/p Apheresis yesterday. - IVF , decrease to 100 - avoid bicarb after d/w Payton Roberts due to calcium level - give 2 g of calcium now and repeat - unstable for CT scan - cont insulin gtt. follow labs q 3 h 2- Shock likely septic shock at this point . - cont pressors ( vasopressin, phsnyephrin, Levophed, and Epinephrin) - cont meropenem - cont doxy empirically for possible Liptospirosis - follow blood cx 3- DKA : A1c 10 . - cont insulin gtt and follow labs. - Elevated AG is likely due to renal failure and lactic acidosis now 4- Severe metabolic acidosis : likely due to lactic , renal failure and DKA - hold off bicarb gtt now 5- Acute respiratory failure , due to severe acidosis - cont vent at AC 6- Unresponsiveness: no brain stem reflexes. - cont to hold sedation . - will consult neuro to help evaluate fro brain 7-ABBEY : likely ATN now due to shock. - appreciate renal help - consider HD soon 8- severe hypocalcemia: due to severe pancreatitis - check PTH - 2 g of calcium now and repeat d/w Pulm and renal
[2017-05-10] MEDS ORDERED: INSULIN REGULAR HUMAN 100 UNITS/ML *VIAL ONE (13:46)
[2017-05-10 13:47] LABS: CALCIUM < 5.0 mg/dL (8.5-10.1)
[2017-05-10] MEDS ORDERED: SODIUM CHLORIDE IVPB STA (13:58)
[2017-05-10] MEDS ORDERED: CALCIUM GLUCONATE IVPB STA (13:58)
[2017-05-10] MEDS ORDERED: HYDROCORTISONE SOD SUCCINATE 100 MG/2 ML VIAL IVPB SCH (14:00)
[2017-05-10] MEDS ORDERED: SODIUM CHLORIDE IVPB ONE (14:05)
[2017-05-10] MEDS ORDERED: CALCIUM GLUCONATE IVPB ONE (14:05)
[2017-05-10] MEDS: MIDAZOLAM 100 MG in SODIUM CHLORIDE 100 ML IVPB SCH (14:08)
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
--- NOTE | 2017-05-10 15:15 | CON.ID ---
Consult Consult Specialty:: infectious diseases Referred by:: Reason for Consultation:: ac pancreatitis - History of Present Illness History of Present Illness: patient intubated history obtained from the charts 27 yo woman morbidly obese, HTN, recent hospitalization in [place] for bronchitis t/w levaquin and albuterol who presented to ED w/ acute epigastric pain, nausea and vomiting (nonbloody). She denies ever being diagnosed with DM in the past. Labs significant for elevated lipase (65744), AG 18, hyperglycemia (567) w/ ketones and leukocytosis (13.1). Her exam was notable for diffuse abdominal pain. CTAP done showing severly inflamed pancreas w/ fat stranding. Patient given IV fluids and insulin drip started. Patient denies EtOH abuse and has h/o cholecystectomy. Modified Justin score: 0 (P:F >400, SCr 0.7, SBP 120) . this was the patients history on admission currently patient is intubated still continuing to need pressor support and barely maintaining her pressure\ patients condition is critical patient yesterday got plasmapheresis for hypertriglyceredimia patient had come to the hospital and was diagnosed with severe pancreatitis - History Source History Provided By: Friend Limitations to Obtaining History: Clinical Condition - Past Medical History Cardio/Vascular: Yes: HTN Pulmonary: Yes: Bronchitis - Past Surgical History Past Surgical History: Yes: Cholecystectomy - Alcohol/Substance Use Hx Alcohol Use: No - Smoking History Smoking history: Never smoked Have you smoked in the past 12 months: No - Social History Usual Living Arrangement: With Spouse ADL: Independent Home Medications - Allergies Allergies/Adverse Reactions: Allergies Allergy/AdvReac Type Severity Reaction Status Date / Time iodine Allergy Swelling Verified 05/08/17 14:43 latex Allergy Rash Verified 05/08/17 14:43 - Home Medications Home Medications: Ambulatory Orders Irbesartan [Avapro] 300 mg PO DAILY 05/08/17 Family Disease History - Family Disease History Family Disease History: Other: Mother, Brother Other Family History: Multiple members with dyspilidemias reported. Review of Systems Unable to obtain ROS, reason: unable to obtain Physical Exam Vital Signs: Vital Signs Temperature 98.9 F 05/10/17 14:54 Pulse Rate 101 H 05/10/17 14:54 Respiratory Rate 35 H 05/10/17 14:54 Blood Pressure 111/66 05/10/17 14:54 O2 Sat by Pulse Oximetry (%) 88 L 05/10/17 13:00 Constitutional: Yes: Obese, Other Cardiovascular: Yes: Regular Rate and Rhythm, Tachycardia, Other (hypotensive) Respiratory: Yes: Intubated, Mechanically Ventilated Gastrointestinal: Yes: Soft, Other (hypoactive bowel sounds) Musculoskeletal: Yes: WNL Extremities: Yes: WNL Neurological: Yes: Other Psychiatric: Yes: Other Labs: CBC, BMP 05/10/17 05:00 05/10/17 12:45 Imaging - Results Chest X-ray: Report Reviewed, Image Reviewed Cat Scan: Report Reviewed, Image Reviewed Assessment/Plan Problem List - Problems (1) Pancreatitis Code(s): K85.90 - ACUTE PANCREATITIS WITHOUT NECROSIS OR INFECTION, UNSP (2) DKA (diabetic ketoacidoses) Code(s): E13.10 - OTH DIABETES MELLITUS WITH KETOACIDOSIS WITHOUT COMA Acute Respiratory Failure Suspected Anoxic Brain injury progressing to Brain . Morbid obesity DKA HTN Pancreatitis likley 2/2 hyperlipidemia/triglyceridemia ARDS ARF plan continue supportive care continue close watch for any brain function rest continue current mgmt resp support patients prognosis looks bad cc time 45 min
[2017-05-10] MEDS: NOREPINEPHRINE BITARTRATE 8,000 MCG in DEXTROSE 5%-WATER - 492 ML IV SCH ×2 (16:25→22:00)
[2017-05-10] MEDS: PHENYLEPHRINE HCL 20,000 MCG in SODIUM CHLORIDE 248 ML IVPB SCH ×2 (16:28→21:00)
[2017-05-10] MEDS ORDERED: INSULIN REGULAR 100 UNITS in SODIUM CHLORIDE 99 ML IVPB SCH (16:33)
[2017-05-10] MEDS ORDERED: POTASSIUM CHLORIDE 20 MEQ PREMIX IVPB 100 ML IVPB ONE ×2 (16:53→17:15)
--- NOTE | 2017-05-10 18:13 | CON.NEURO ---
Consult - History of Present Illness History of Present Illness: 27 yr old with asthma, HTN, and morbid obesity presents to the ED with nausea and nonbloody, nonbilous vomiting on 05/08/17 an then dx, with newly dx DM, a/w DKA and pancreatitis ; Labs significant for elevated lipase (09366), AG 18, hyperglycemia (567) w/ ketones and leukocytosis (13.1). Her exam was notable for diffuse abdominal pain. CTAP done showing severly inflamed pancreas w/ fat stranding. Patient treated with IV fluids, insulin drip. Pt was started on vasopressors and subsequently intubated b/o respiratory failure on 05/09/17, developed ARDS --now on 4 pressors and intubated. on 4:30 am today patient was found to have nonreactive pupils with absent gag reflex per ICU CERAMICS TEST ENGINEER note. Pt was trialed off sedation (stopped at 0400 05/10). Pt was also placed onto Vasopressin in addition to Levophed, Phenylephrine, and epinephrine to maintain BP. Pt remains unresponsive -- 35/35, no movements; family by bedside. . - Past Medical History Cardio/Vascular: Yes: HTN Pulmonary: Yes: Bronchitis - Past Surgical History Past Surgical History: Yes: Cholecystectomy - Alcohol/Substance Use Hx Alcohol Use: No - Smoking History Smoking history: Never smoked Have you smoked in the past 12 months: No - Social History Usual Living Arrangement: With Spouse ADL: Independent Home Medications - Allergies Allergies/Adverse Reactions: Allergies Allergy/AdvReac Type Severity Reaction Status Date / Time iodine Allergy Swelling Verified 05/08/17 14:43 latex Allergy Rash Verified 05/08/17 14:43 - Home Medications Home Medications: Ambulatory Orders Irbesartan [Avapro] 300 mg PO DAILY 05/08/17 Family Disease History - Family Disease History Family Disease History: Other: Mother, Brother Other Family History: Multiple members with dyspilidemias reported. Physical Exam-Neuro Vital Signs: Vital Signs Temperature 99.9 F H 05/10/17 17:07 Pulse Rate 124 H 05/10/17 18:00 Respiratory Rate 35 H 05/10/17 18:00 Blood Pressure 119/69 05/10/17 18:00 O2 Sat by Pulse Oximetry (%) 88 L 05/10/17 13:00 Neck: Yes: Supple Labs: CBC, BMP 05/10/17 05:00 05/10/17 12:45 INR, PTT INR 1.27 (0.82-1.09) H 05/09/17 13:00 Fibrinogen 342.0 mg/dL (238-498) D 05/10/17 05:00 - Neuro Exam Level Of Consciousness: Yes: Comatose (eyes closed, nonresposnive, pupils fixed and dilted, no corneals, no DOLLS, no spont movements, plantars dwon, no posturing) Problem List - Problems (1) Multiorgan failure Code(s): RJO0974 - (2) Pancreatitis Code(s): K85.90 - ACUTE PANCREATITIS WITHOUT NECROSIS OR INFECTION, UNSP Qualifiers: Chronicity: acute Pancreatitis type: other Acute pancreatitis complication: unspecified Qualified Code(s): K85.80 - Other acute pancreatitis without necrosis or infection; K85.80 - Other acute pancreatitis without necrosis or infection (3) DKA (diabetic ketoacidoses) Code(s): E13.10 - OTH DIABETES MELLITUS WITH KETOACIDOSIS WITHOUT COMA (4) Hemodynamic instability Code(s): R09.89 - OTH SYMPTOMS AND SIGNS INVOLVING THE CIRC AND RESP SYSTEMS (5) Cerebral anoxic injury Code(s): G93.1 - ANOXIC BRAIN DAMAGE, NOT ELSEWHERE CLASSIFIED Assessment/Plan 27 yr old with asthma, HTN, and morbid obesity presents to the ED with nausea and nonbloody, nonbilous vomiting on 05/08/17 an then dx, with newly dx DM, a/w DKA and pancreatitis ;subsequently intubated b/o respiratory failure on 05/09/17 , developed ARDS --on 4:30 am today patient was found to have nonreactive pupils with absent gag reflex per ICU CERAMICS TEST ENGINEER note. Pt was trialed off sedation ( stopped at 0400 05/10). Pt remains unresponsive -- 35/35, no movements; family by bedside. unfortunately there appears to be severe anoxic brain injury with no evidence of cortical or brainstem reflexes explained at length with family this is irreversible neurological dysfunction ideally would like to get HD CT and EEG to corroborate our clinical suspicions family is aware pt may code/detioriate during CT --can plan in AM depending on ICU team decision will reasses in AM , will check calorics etc family aware of prognosis Dr Gandara
[2017-05-10] MEDS ORDERED: HEMOQUE TEST 1 EACH EACH ONE (20:08)
--- NOTE | 2017-05-10 21:38 | PN ---
Progress Note (short form) - Note Progress Note: Patint seen and examind Unresponsive Off sedation On 4 pressors on 100% FiO2 Last Vital Signs Temp Pulse Resp BP Pulse Ox 99.9 F H 83 35 H 119/69 88 L 05/10/17 17:07 05/10/17 18:00 05/10/17 19:15 05/10/17 18:00 05/10/17 13:00 Cor: RSR, No murmurs, No gallops Lungs: Clear to P&A Abd: Soft, Normal bowel sounds, No organomegaly Ext:No significant edema Skin: No rashes, Integument intact Abnormal Lab Results 05/09/17 05/09/17 05/09/17 20:00 22:14 23:30 WBC MCV RDW Lymphocytes % Monocytes % Fibrinogen 222.0 L D ABG pH ABG pO2 at Pt Temp ABG HCO3 ABG O2 Sat (Measured) ABG O2 Content ABG Base Excess Sodium Potassium Chloride 108 H Carbon Dioxide 14 L D Anion Gap 17 H BUN 19 H Creatinine 3.7 H D Random Glucose 338 H* D Lactic Acid 4.1 H* Calcium < 5.0 L* Magnesium AST ALT Alkaline Phosphatase Creatine Kinase CK-MB (CK-2) Troponin I Total Protein Albumin Triglycerides 05/10/17 05/10/17 05/10/17 01:15 02:00 02:00 WBC MCV RDW Lymphocytes % Monocytes % Fibrinogen ABG pH 7.17 L* ABG pO2 at Pt Temp 147.0 H D ABG HCO3 13.2 L* ABG O2 Sat (Measured) 99.2 H ABG O2 Content ABG Base Excess -14.3 L* Sodium 135 L Potassium Chloride Carbon Dioxide 14 L Anion Gap BUN 21 H Creatinine 4.0 H Random Glucose 374 H* Lactic Acid 3.5 H* Calcium < 5.0 L* Magnesium AST ALT Alkaline Phosphatase Creatine Kinase 819 H CK-MB (CK-2) 6.438 H Troponin I 0.63 H* Total Protein Albumin Triglycerides 05/10/17 05/10/17 05/10/17 05:00 05:00 05:00 WBC 11.6 H MCV 79.5 L RDW 16.3 H Lymphocytes % 44.4 H Monocytes % 3.7 L Fibrinogen ABG pH ABG pO2 at Pt Temp ABG HCO3 ABG O2 Sat (Measured) ABG O2 Content ABG Base Excess Sodium 135 L Potassium Chloride Carbon Dioxide 14 L Anion Gap BUN 22 H Creatinine 4.2 H Random Glucose 310 H* Lactic Acid Calcium < 5.0 L* Magnesium 1.2 L D AST 1042 H ALT 275 H D Alkaline Phosphatase 26 L D Creatine Kinase 990 H CK-MB (CK-2) 7.801 H Troponin I 0.61 H* Total Protein 4.0 L Albumin 2.8 L D Triglycerides 704 H 05/10/17 05/10/17 05/10/17 07:00 12:05 12:45 WBC MCV RDW Lymphocytes % Monocytes % Fibrinogen ABG pH 7.11 L* ABG pO2 at Pt Temp 61.7 L D ABG HCO3 11.9 L* ABG O2 Sat (Measured) 89.6 L ABG O2 Content 14.0 L ABG Base Excess -16.7 L* Sodium Potassium 3.4 L Chloride 111 H Carbon Dioxide 13 L Anion Gap BUN Creatinine 3.9 H Random Glucose 210 H D Lactic Acid 2.3 H* Calcium < 5.0 L* Magnesium 1.0 L AST ALT Alkaline Phosphatase Creatine Kinase CK-MB (CK-2) Troponin I Total Protein Albumin Triglycerides 624 H 05/10/17 14:31 WBC MCV RDW Lymphocytes % Monocytes % Fibrinogen ABG pH ABG pO2 at Pt Temp ABG HCO3 ABG O2 Sat (Measured) ABG O2 Content ABG Base Excess Sodium Potassium Chloride Carbon Dioxide Anion Gap BUN Creatinine Random Glucose Lactic Acid Calcium < 5.0 L* Magnesium AST ALT Alkaline Phosphatase Creatine Kinase CK-MB (CK-2) Troponin I Total Protein Albumin Triglycerides A/P 27 y/o fmal with DM, hypertriglycridmia, svre pancreatitis, SIRS, anoxic brain injury s/p aphersis yestrday with triglycrid lvls down discussed in grat detail with endocrinology await neurology input discussd with icu team
[2017-05-10 22:12] LABS: ANION GAP 15 (8-16); CO2 12 mmol/L (21-32); CREATININE 5.2 mg/dL (0.55-1.02); GLUCOSE,RANDOM 288 mg/dL (74-106); MAGNESIUM 1.5 mg/dL (1.8-2.4); PHOSPHOROUS 6.4 mg/dL (2.5-4.9)
[2017-05-10 22:23] LABS: CALCIUM < 5.0 mg/dL (8.5-10.1)
[2017-05-10] MEDS ORDERED: PT OWN MED DRAWER 7, Y5N ONE (22:44)
[2017-05-10] MEDS: CHLORHEXIDINE GLUCONATE 4% CLEANSER FOR DECOLONIZATION TP SCH (22:58)
[2017-05-11] MEDS ORDERED: MAGNESIUM SULF 50% (8.12 MEQ/2 ML-1 GM VIAL) IVPB ONE ×3 (00:50→09:00)
[2017-05-11 00:54] LABS: ANION GAP 17 (8-16); CO2 10 mmol/L (21-32); CREATININE 5.4 mg/dL (0.55-1.02); GLUCOSE,RANDOM 273 mg/dL (74-106); MAGNESIUM 1.4 mg/dL (1.8-2.4); PHOSPHOROUS 6.3 mg/dL (2.5-4.9)
[2017-05-11 01:00] LABS: CALCIUM < 5.0 mg/dL (8.5-10.1)
[2017-05-11] MEDS ORDERED: SODIUM CHLORIDE 0.45% 1,000 ML IV SCH (01:00)
[2017-05-11] MEDS ORDERED: SODIUM CHLORIDE 1,000 ML IV SCH (01:30)
[2017-05-11] MEDS ORDERED: HEMOQUE CONTROL SOLUTION ONE (01:32)
[2017-05-11] MEDS: EPINEPHRINE IV SCH ×3 (01:42→09:56)
[2017-05-11] MEDS: SODIUM CHLORIDE IV SCH ×3 (01:42→09:56)
[2017-05-11] MEDS: HYDROCORTISONE SOD SUCCINATE 100 MG/2 ML VIAL IVPB SCH ×3 (01:44→18:12)
[2017-05-11] MEDS: DOXYCYCLINE INJECTION 100 MG in DEXTROSE 5%-WATER - 100 ML IVPB SCH ×2 (01:45→13:33)
[2017-05-11] MEDS: MEROPENEM 1 GM in DEXTROSE 5%-WATER - 100 ML IVPB SCH ×2 (01:46→13:33)
[2017-05-11] MEDS ORDERED: EPINEPHrine/PF 1 MG/1 ML (1:1,000) AMPULE ONE ×6 (02:20→23:29)
[2017-05-11] MEDS ORDERED: NOREPINEPHRINE BITARTRATE 4 MG/4 ML ML IV ONE ×5 (02:21→22:45)
[2017-05-11] MEDS ORDERED: PHENYLEPHRINE HCL 10 MG/1 ML SINGLE DOSE VIAL ONE ×5 (02:22→23:29)
[2017-05-11 03:38] LABS: ANION GAP 18 (8-16); CO2 11 mmol/L (21-32); CREATININE 5.7 mg/dL (0.55-1.02); GLUCOSE,RANDOM 267 mg/dL (74-106); MAGNESIUM 1.4 mg/dL (1.8-2.4); PHOSPHOROUS 5.5 mg/dL (2.5-4.9)
[2017-05-11 03:42] LABS: CALCIUM < 5.0 mg/dL (8.5-10.1)
[2017-05-11] MEDS: HEPARIN NA (PORCINE) 5,000 UNITS/ML 1ML VIAL SQ SCH ×3 (05:50→22:21)
[2017-05-11] MEDS: NOREPINEPHRINE BITARTRATE 8,000 MCG in DEXTROSE 5%-WATER - 492 ML IV SCH ×4 (05:51→22:44)
[2017-05-11] MEDS: PHENYLEPHRINE HCL 20,000 MCG in SODIUM CHLORIDE 248 ML IVPB SCH ×2 (05:53→16:00)
[2017-05-11] MEDS: VASOPRESSIN 50 UNITS in SODIUM CHLORIDE 97.5 ML IVPB SCH ×2 (05:53→17:25)
[2017-05-11] MEDS ORDERED: HEMOQUE TEST 1 EACH EACH ONE ×2 (06:05→13:41)
[2017-05-11 06:07] LABS: ANION GAP 18 (8-16); CO2 10 mmol/L (21-32); CREATININE 5.8 mg/dL (0.55-1.02); GLUCOSE,RANDOM 267 mg/dL (74-106); MAGNESIUM 1.8 mg/dL (1.8-2.4); PHOSPHOROUS 5.8 mg/dL (2.5-4.9)
[2017-05-11 06:12] LABS: CALCIUM < 5.0 mg/dL (8.5-10.1)
[2017-05-11] MEDS ORDERED: DEXTROSE 5%-0.45% SALINE 1,000 ML IV SCH (06:15)
[2017-05-11 07:06] LABS: INR 1.25 (0.82-1.09); PROTHROMBIN TIME (PATIENT) 14.1 SEC (9.98-11.88)
[2017-05-11 07:09] LABS: ACTIVATED PTT 40.5 SECONDS (26.9-34.4)
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
[2017-05-11] MEDS ORDERED: dilTIAZem HCL 50 MG/10 ML - 10 ML VIAL IVPUSH ONE (08:26)
[2017-05-11] MEDS ORDERED: CALCIUM GLUCONATE 10% - 1,000 MG/10 ML VIAL ONE (08:43)
[2017-05-11] MEDS ORDERED: CALCIUM GLUCONATE 10% - 1,000 MG/10 ML VIAL IVPB ONE ×2 (09:00→09:25)
--- NOTE | 2017-05-11 09:12 | PN ---
Progress Note (short form) - Note Progress Note: 27 yr old with asthma, HTN, and morbid obesity presents to the ED with nausea and nonbloody, nonbilous vomiting on 05/08/17 an then dx, with newly dx DM, a/w DKA and pancreatitis ; Labs significant for elevated lipase (40259), AG 18, hyperglycemia (567) w/ ketones and leukocytosis (13.1). Her exam was notable for diffuse abdominal pain. CTAP done showing severly inflamed pancreas w/ fat stranding. Patient treated with IV fluids, insulin drip. Pt was started on vasopressors and subsequently intubated b/o respiratory failure on 05/09/17, developed ARDS --now on 4 pressors and intubated. on 4:30 am today patient was found to have nonreactive pupils with absent gag reflex per ICU NIGHT ASSISTANT note. Pt was trialed off sedation (stopped at 0400 05/10). Pt was also placed onto Vasopressin in addition to Levophed, Phenylephrine, and epinephrine to maintain BP. Pt remains unresponsive -- 35/35, no movements; FU : no new developments, remain comatose, no sedation . - Past Medical History Cardio/Vascular: Yes: HTN Pulmonary: Yes: Bronchitis - Past Surgical History Past Surgical History: Yes: Cholecystectomy - Alcohol/Substance Use Hx Alcohol Use: No - Smoking History Smoking history: Never smoked Have you smoked in the past 12 months: No - Social History Usual Living Arrangement: With Spouse ADL: Independent Home Medications - Allergies Allergies/Adverse Reactions: Allergies Allergy/AdvReac Type Severity Reaction Status Date / Time iodine Allergy Swelling Verified 05/08/17 14:43 latex Allergy Rash Verified 05/08/17 14:43 - Home Medications Home Medications: Ambulatory Orders Irbesartan [Avapro] 300 mg PO DAILY 05/08/17 Family Disease History - Family Disease History Family Disease History: Other: Mother, Brother Other Family History: Multiple members with dyspilidemias reported. Physical Exam-Neuro Vital Signs: Vital Signs Temperature 101.7 F H 05/11/17 09:00 Pulse Rate 125 H 05/11/17 09:00 Respiratory Rate 35 H 05/11/17 09:00 Blood Pressure 106/50 05/11/17 09:00 O2 Sat by Pulse Oximetry (%) 92 L 05/11/17 08:00 Neck: Yes: Supple Labs: CBCD WBC 11.6 K/mm3 (4.0-10.0) H 05/10/17 05:00 RBC 4.53 M/mm3 (3.60-5.2) 05/10/17 05:00 Hgb 11.7 GM/dL (10.7-15.3) 05/10/17 05:00 Hct 36.0 % (32.4-45.2) 05/10/17 05:00 MCV 79.5 fl (80-96) L 05/10/17 05:00 MCHC 32.6 g/dl (32.0-36.0) 05/10/17 05:00 RDW 16.3 % (11.6-15.6) H 05/10/17 05:00 Plt Count 159 K/MM3 (134-434) D 05/10/17 05:00 MPV 10.5 fl (7.5-11.1) 05/10/17 05:00 CMP Sodium 129 mmol/L (136-145) L 05/11/17 05:00 Potassium 5.4 mmol/L (3.5-5.1) H 05/11/17 05:00 Chloride 101 mmol/L (98-107) 05/11/17 05:00 Carbon Dioxide 10 mmol/L (21-32) L 05/11/17 05:00 Anion Gap 18 (8-16) H 05/11/17 05:00 BUN 23 mg/dL (7-18) H 05/11/17 05:00 Creatinine 5.8 mg/dL (0.55-1.02) H 05/11/17 05:00 Creat Clearance w eGFR 12.51 (>60) 05/10/17 05:00 Calcium < 5.0 mg/dL (8.5-10.1) L* 05/11/17 05:00 Total Bilirubin 0.8 mg/dL (0.2-1.0) D 05/10/17 05:00 AST 1042 U/L (15-37) H 05/10/17 05:00 ALT 275 U/L (12-78) H D 05/10/17 05:00 Alkaline Phosphatase 26 U/L (45-117) L D 05/10/17 05:00 Total Protein 4.0 g/dl (6.4-8.2) L 05/10/17 05:00 Albumin 2.8 g/dl (3.4-5.0) L D 05/10/17 05:00 - Neuro Exam Level Of Consciousness: Yes: Comatose (eyes closed, nonresposnive, pupils fixed and dilted, no corneals, no DOLLS, no spont movements, plantars dwon, no posturing); cold water calorics (-) Problem List - Problems (1) Multiorgan failure Code(s): NOK6331 - (2) Pancreatitis Code(s): K85.90 - ACUTE PANCREATITIS WITHOUT NECROSIS OR INFECTION, UNSP Qualifiers: Chronicity: acute Pancreatitis type: other Acute pancreatitis complication: unspecified Qualified Code(s): K85.80 - Other acute pancreatitis without necrosis or infection; K85.80 - Other acute pancreatitis without necrosis or infection (3) DKA (diabetic ketoacidoses) Code(s): E13.10 - OTH DIABETES MELLITUS WITH KETOACIDOSIS WITHOUT COMA (4) Hemodynamic instability Code(s): R09.89 - OTH SYMPTOMS AND SIGNS INVOLVING THE CIRC AND RESP SYSTEMS (5) Cerebral anoxic injury Code(s): G93.1 - ANOXIC BRAIN DAMAGE, NOT ELSEWHERE CLASSIFIED Assessment/Plan 27 yr old with asthma, HTN, and morbid obesity presents to the ED with nausea and nonbloody, nonbilous vomiting on 05/08/17 an then dx, with newly dx DM, a/w DKA and pancreatitis ;subsequently intubated b/o respiratory failure on 05/09/17 , developed ARDS --on 4:30 am today patient was found to have nonreactive pupils with absent gag reflex per ICU NIGHT ASSISTANT note. Pt was trialed off sedation ( stopped at 0400 05/10). Pt remains unresponsive -- severe anoxic brain injury with no evidence of cortical or brainstem reflexes, explained at length with family this is irreversible neurological dysfunction family in agreement that further CT ,EEG will no change her prognosis or care so will be deferred awaiting apnea test and the ideally to wait for family to be present before terminal wean Dr Gandara Problem List - Problems (1) Multiorgan failure Code(s): SIF1839 - (2) Pancreatitis Code(s): K85.90 - ACUTE PANCREATITIS WITHOUT NECROSIS OR INFECTION, UNSP Qualifiers: Chronicity: acute Pancreatitis type: other Acute pancreatitis complication: unspecified Qualified Code(s): K85.80 - Other acute pancreatitis without necrosis or infection; K85.80 - Other acute pancreatitis without necrosis or infection (3) DKA (diabetic ketoacidoses) Code(s): E13.10 - OTH DIABETES MELLITUS WITH KETOACIDOSIS WITHOUT COMA (4) Hemodynamic instability Code(s): R09.89 - OTH SYMPTOMS AND SIGNS INVOLVING THE CIRC AND RESP SYSTEMS (5) Cerebral anoxic injury Code(s): G93.1 - ANOXIC BRAIN DAMAGE, NOT ELSEWHERE CLASSIFIED
[2017-05-11] MEDS ORDERED: CALCIUM GLUCONATE IVPB ONE (10:00)
[2017-05-11] MEDS ORDERED: SODIUM CHLORIDE IVPB ONE (10:00)
[2017-05-11 10:01] LABS: ARTERIAL BLOOD GAS BASE EXCESS -21.6 meq/l (-2-2); ARTERIAL BLOOD GAS HCO3 8.9 meq/L (22-26); ARTERIAL BLOOD GAS PO2 68.8 mmHg (80-100)
[2017-05-11 10:02] LABS: MECH. VENT. YES; VENT RATE 35; VT/PRESS 350
[2017-05-11 10:03] LABS: TYPE OF O2 100%
[2017-05-11 10:04] LABS: ARTERIAL BLOOD GAS pH 6.99 (7.35-7.45)
[2017-05-11] MEDS: FENTANYL INJECTION 500 MCG in DEXTROSE 5%-WATER - 90 ML IJ SCH (11:34)
[2017-05-11] MEDS: MUPIROCIN 2% TOPICAL OINTMENT FOR DECOLONIZATION NS SCH ×2 (11:37→22:23)
--- NOTE | 2017-05-11 11:43 | PN ---
Teaching Attending Note Name of Resident: Fatmata Pina ATTENDING PHYSICIAN STATEMENT I saw and evaluated the patient. I reviewed the resident's note and discussed the case with the resident. I agree with the resident's findings and plan as documented. SUBJECTIVE: Patient seen and examined in the unit. Remains unresponsive. Neurology follow up noted. Remains on support of 4 pressors. AC Mode of vent, 100% FiO2. Worsening of severe metabolic derangement noted. Intake & Output 05/08/17 05/09/17 05/10/17 05/11/17 23:59 23:59 23:59 23:59 Intake Total 21884 83774 4548 Output Total 780 195 300 Balance 87721 68601 4248 Weight 266 lb 8 oz 265 lb 12.8 oz 300 lb 1.6 oz 328 lb 14.4 oz Last Vital Signs Temp Pulse Resp BP Pulse Ox 101.2 F H 128 H 35 H 104/52 83 L 05/11/17 11:00 05/11/17 11:00 05/11/17 11:00 05/11/17 11:00 05/11/17 11:33 Active Medications Albuterol Sulfate (Ventolin 0.083% Nebulizer Soln -) 1 amp NEB Q6H PRN PRN Reason: SHORT OF BREATH/WHEEZING Chlorhexidine Gluconate (Hibiclens For Decolonization -) 1 applic TP HS LUNA Last Admin: 05/10/17 22:58 Dose: 1 applic Heparin Sodium (Porcine) (Heparin -) 5,000 unit SQ TID LUNA Last Admin: 05/11/17 05:50 Dose: 5,000 unit Hydrocortisone Sodium Succinate (Solu-Cortef -) 100 mg IVPB Q8H-IV LUNA Last Admin: 05/11/17 01:44 Dose: 100 mg Fentanyl 500 mcg/ Dextrose 100 mls @ 15 mls/hr IJ TITR LUNA PRN Reason: 75 MCG/HR Last Admin: 05/10/17 09:34 Dose: Not Given Midazolam HCl 100 mg/ Sodium (Chloride) 100 mls @ 4 mls/hr IVPB TITR LUNA; 4 MG/ HR PRN Reason: Protocol Last Admin: 05/10/17 14:08 Dose: Not Given Norepinephrine Bitartrate 8, (000 mcg/ Dextrose) 500 mls @ 18.75 mls/hr IV TITR LUNA; 5 MCG/MIN PRN Reason: Protocol Last Admin: 05/11/17 05:51 Dose: 150 mls/hr Phenylephrine HCl 20,000 mcg/ (Sodium Chloride) 250 mls @ 75 mls/hr IVPB ASDIR LUNA; 100 MCG/MIN PRN Reason: Protocol Last Admin: 05/11/17 05:53 Dose: 112.5 mls/hr Vasopressin 50 units/ Sodium (Chloride) 100 mls @ 4 mls/hr IVPB ASDIR LUNA; 2 UNITS/HR PRN Reason: Protocol Last Admin: 05/11/17 05:53 Dose: 8 mls/hr Doxycycline Hyclate 100 mg/ (Dextrose) 100 mls @ 100 mls/hr IVPB Q12H LUNA Last Admin: 05/11/17 01:45 Dose: 100 mls/hr Epinephrine HCl 1,000 mcg/ (Sodium Chloride) 250 mls @ 180.84 mls/hr IV ASDIR LUNA; 0.1 MCG/KG/MIN PRN Reason: Protocol Last Admin: 05/11/17 09:56 Dose: 180.84 mls/hr Meropenem 1 gm/ Dextrose 100 mls @ 200 mls/hr IVPB Q12H LUNA Last Admin: 05/11/17 01:46 Dose: 200 mls/hr Insulin Human Regular 100 (units/ Sodium Chloride) 100 mls @ 13.61 mls/hr IVPB TITR LUNA; 0.1 UNITS/KG/HR PRN Reason: Protocol Last Titration: 05/11/17 10:06 Dose: 0.07 units/kg/hr Calcium Gluconate 10,000 mg/ (Sodium Chloride) 1,100 mls @ 100 mls/hr IVPB ONCE ONE Stop: 05/11/17 20:59 Last Admin: 05/11/17 09:06 Dose: 100 mls/hr Midazolam HCl (Versed -) 4 mg IVPUSH Q2H PRN PRN Reason: AGITATION Last Admin: 05/09/17 14:00 Dose: 4 mg Mupirocin (Bactroban Ointment (For Decolonization) -) 1 applic NS BID LUNA Stop: 05/13/17 21:59 Last Admin: 05/10/17 22:55 Dose: 1 applic Gen: Non-responsive, AC Mode of vent. HEENT: Pupils dilated and unreactive, R IJ Catheter PULM: diffuse crackles, no wheezes, AC Mode of mechanical ventilation CV: tachy, regular, no m/r/g appreciated ABD: obese, distended, hypoactive BS EXT: trace edema Neuro: non-responsive Laboratory Results - last 24 hr 05/09/17 05/09/17 05/10/17 00:30 20:00 02:00 PT with INR INR PTT (Actin FS) Fibrinogen Puncture Site ABG pH ABG pCO2 at Pt Temp ABG pO2 at Pt Temp ABG HCO3 ABG O2 Sat (Measured) ABG O2 Content ABG Base Excess Giovani Test O2 Delivery Device Oxygen Flow Rate Vent Mode Vent Rate Mechanical Rate PEEP Pressure Support Vent Sodium Potassium Chloride Carbon Dioxide Anion Gap BUN Creatinine POC Glucometer Random Glucose Calcium Phosphorus Magnesium Triglycerides Urine HCG, Qual IgG 95 L Hepatitis A IgM Ab Negative Negative Hep Bs Antigen Negative Negative Hep B Core IgM Ab Negative Negative Hepatitis C Ab (EIA) 0.1 <0.1 05/10/17 05/10/17 05/10/17 04:15 05:31 06:30 PT with INR INR PTT (Actin FS) Fibrinogen Puncture Site ABG pH ABG pCO2 at Pt Temp ABG pO2 at Pt Temp ABG HCO3 ABG O2 Sat (Measured) ABG O2 Content ABG Base Excess Giovani Test O2 Delivery Device Oxygen Flow Rate Vent Mode Vent Rate Mechanical Rate PEEP Pressure Support Vent Sodium Potassium Chloride Carbon Dioxide Anion Gap BUN Creatinine POC Glucometer 325.66931 314.57086 300.65600 Random Glucose Calcium Phosphorus Magnesium Triglycerides Urine HCG, Qual IgG Hepatitis A IgM Ab Hep Bs Antigen Hep B Core IgM Ab Hepatitis C Ab (EIA) 05/10/17 05/10/17 05/10/17 07:27 08:55 09:56 PT with INR INR PTT (Actin FS) Fibrinogen Puncture Site ABG pH ABG pCO2 at Pt Temp ABG pO2 at Pt Temp ABG HCO3 ABG O2 Sat (Measured) ABG O2 Content ABG Base Excess Giovani Test O2 Delivery Device Oxygen Flow Rate Vent Mode Vent Rate Mechanical Rate PEEP Pressure Support Vent Sodium Potassium Chloride Carbon Dioxide Anion Gap BUN Creatinine POC Glucometer 253.10844 236.83156 231.09666 Random Glucose Calcium Phosphorus Magnesium Triglycerides Urine HCG, Qual IgG Hepatitis A IgM Ab Hep Bs Antigen Hep B Core IgM Ab Hepatitis C Ab (EIA) 05/10/17 05/10/17 05/10/17 11:25 12:05 12:10 PT with INR INR PTT (Actin FS) Fibrinogen Puncture Site Arterial line ABG pH 7.11 L* ABG pCO2 at Pt Temp 39.4 ABG pO2 at Pt Temp 61.7 L D ABG HCO3 11.9 L* ABG O2 Sat (Measured) 89.6 L ABG O2 Content 14.0 L ABG Base Excess -16.7 L* Giovani Test Not applicable O2 Delivery Device Vent Oxygen Flow Rate 80% Vent Mode A/c Vent Rate 35 Mechanical Rate Yes PEEP 12.0 Pressure Support Vent 350 Sodium Potassium Chloride Carbon Dioxide Anion Gap BUN Creatinine POC Glucometer 241.84914 238.24813 Random Glucose Calcium Phosphorus Magnesium Triglycerides Urine HCG, Qual IgG Hepatitis A IgM Ab Hep Bs Antigen Hep B Core IgM Ab Hepatitis C Ab (EIA) 05/10/17 05/10/17 05/10/17 12:45 13:52 14:31 PT with INR INR PTT (Actin FS) Fibrinogen Puncture Site ABG pH ABG pCO2 at Pt Temp ABG pO2 at Pt Temp ABG HCO3 ABG O2 Sat (Measured) ABG O2 Content ABG Base Excess Giovani Test O2 Delivery Device Oxygen Flow Rate Vent Mode Vent Rate Mechanical Rate PEEP Pressure Support Vent Sodium 140 Potassium 3.4 L Chloride 111 H Carbon Dioxide 13 L Anion Gap 16 BUN 18 Creatinine 3.9 H POC Glucometer 229.54446 Random Glucose 210 H D Calcium < 5.0 L* < 5.0 L* Phosphorus 4.2 D Magnesium 1.0 L Triglycerides 624 H Urine HCG, Qual IgG Hepatitis A IgM Ab Hep Bs Antigen Hep B Core IgM Ab Hepatitis C Ab (EIA) 05/10/17 05/10/17 05/10/17 14:51 15:00 16:03 PT with INR INR PTT (Actin FS) Fibrinogen Puncture Site ABG pH ABG pCO2 at Pt Temp ABG pO2 at Pt Temp ABG HCO3 ABG O2 Sat (Measured) ABG O2 Content ABG Base Excess Giovani Test O2 Delivery Device Oxygen Flow Rate Vent Mode Vent Rate Mechanical Rate PEEP Pressure Support Vent Sodium Potassium Chloride Carbon Dioxide Anion Gap BUN Creatinine POC Glucometer 245.04959 [phone] Random Glucose Calcium Phosphorus Magnesium Triglycerides Urine HCG, Qual Negative IgG Hepatitis A IgM Ab Hep Bs Antigen Hep B Core IgM Ab Hepatitis C Ab (EIA) 05/10/17 05/10/17 05/10/17 17:08 17:39 20:19 PT with INR INR PTT (Actin FS) Fibrinogen Puncture Site ABG pH ABG pCO2 at Pt Temp ABG pO2 at Pt Temp ABG HCO3 ABG O2 Sat (Measured) ABG O2 Content ABG Base Excess Giovani Test O2 Delivery Device Oxygen Flow Rate Vent Mode Vent Rate Mechanical Rate PEEP Pressure Support Vent Sodium Potassium Chloride Carbon Dioxide Anion Gap BUN Creatinine POC Glucometer 261.39776 268.74381 269.90945 Random Glucose Calcium Phosphorus Magnesium Triglycerides Urine HCG, Qual IgG Hepatitis A IgM Ab Hep Bs Antigen Hep B Core IgM Ab Hepatitis C Ab (EIA) 05/10/17 05/10/17 05/10/17 21:15 21:15 22:13 PT with INR INR PTT (Actin FS) Fibrinogen Puncture Site ABG pH ABG pCO2 at Pt Temp ABG pO2 at Pt Temp ABG HCO3 ABG O2 Sat (Measured) ABG O2 Content ABG Base Excess Giovani Test O2 Delivery Device Oxygen Flow Rate Vent Mode Vent Rate Mechanical Rate PEEP Pressure Support Vent Sodium 129 L Potassium 6.0 H D Chloride 102 Carbon Dioxide 12 L Anion Gap 15 BUN 22 H D Creatinine 5.2 H D POC Glucometer 259.11174 259.99886 Random Glucose 288 H D Calcium < 5.0 L* Phosphorus 6.4 H D Magnesium 1.5 L D Triglycerides Urine HCG, Qual IgG Hepatitis A IgM Ab Hep Bs Antigen Hep B Core IgM Ab Hepatitis C Ab (EIA) 05/10/17 05/11/17 05/11/17 23:14 00:03 00:05 PT with INR INR PTT (Actin FS) Fibrinogen Puncture Site ABG pH ABG pCO2 at Pt Temp ABG pO2 at Pt Temp ABG HCO3 ABG O2 Sat (Measured) ABG O2 Content ABG Base Excess Giovani Test O2 Delivery Device Oxygen Flow Rate Vent Mode Vent Rate Mechanical Rate PEEP Pressure Support Vent Sodium 129 L Potassium 5.9 H Chloride 102 Carbon Dioxide 10 L Anion Gap 17 H BUN 23 H Creatinine 5.4 H POC Glucometer 262.99106 245.94406 Random Glucose 273 H Calcium < 5.0 L* Phosphorus 6.3 H Magnesium 1.4 L Triglycerides Urine HCG, Qual IgG Hepatitis A IgM Ab Hep Bs Antigen Hep B Core IgM Ab Hepatitis C Ab (EIA) 05/11/17 05/11/17 05/11/17 03:05 05:00 05:00 PT with INR INR PTT (Actin FS) Fibrinogen Puncture Site ABG pH ABG pCO2 at Pt Temp ABG pO2 at Pt Temp ABG HCO3 ABG O2 Sat (Measured) ABG O2 Content ABG Base Excess Giovani Test O2 Delivery Device Oxygen Flow Rate Vent Mode Vent Rate Mechanical Rate PEEP Pressure Support Vent Sodium 130 L 129 L Potassium 5.3 H 5.4 H Chloride 101 101 Carbon Dioxide 11 L 10 L Anion Gap 18 H 18 H BUN 22 H 23 H Creatinine 5.7 H 5.8 H POC Glucometer Random Glucose 267 H 267 H Calcium < 5.0 L* < 5.0 L* Phosphorus 5.5 H 5.8 H Magnesium 1.4 L 1.8 D Triglycerides 904 H D Urine HCG, Qual IgG Hepatitis A IgM Ab Hep Bs Antigen Hep B Core IgM Ab Hepatitis C Ab (EIA) 05/11/17 05/11/17 05/11/17 05:00 05:00 10:00 PT with INR 14.10 H INR 1.25 H PTT (Actin FS) 40.5 H Fibrinogen 486.0 D Puncture Site ABG pH 6.99 L* ABG pCO2 at Pt Temp 39.4 ABG pO2 at Pt Temp 68.8 L ABG HCO3 8.9 L* ABG O2 Sat (Measured) 91.0 ABG O2 Content 12.8 L ABG Base Excess -21.6 L* Giovani Test O2 Delivery Device 100% Oxygen Flow Rate Vent Mode A/c Vent Rate 35 Mechanical Rate Yes PEEP 12.0 Pressure Support Vent 350 Sodium Potassium Chloride Carbon Dioxide Anion Gap BUN Creatinine POC Glucometer Random Glucose Calcium Cancelled Phosphorus Cancelled Magnesium Cancelled Triglycerides Urine HCG, Qual IgG Hepatitis A IgM Ab Hep Bs Antigen Hep B Core IgM Ab Hepatitis C Ab (EIA) Problem List - Problems (1) Pancreatitis Code(s): K85.90 - ACUTE PANCREATITIS WITHOUT NECROSIS OR INFECTION, UNSP (2) DKA (diabetic ketoacidoses) Code(s): E13.10 - OTH DIABETES MELLITUS WITH KETOACIDOSIS WITHOUT COMA Assessment/Plan Acute Respiratory Failure Anoxic Brain injury progressing to Brain . 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
[2017-05-11] MEDS ORDERED: MAGNESIUM SULF 50% (8.12 MEQ/2 ML-1 GM VIAL) ONE (12:01)
[2017-05-11] MEDS ORDERED: PT OWN MED DRAWER 7, Y5N ONE (12:02)
--- NOTE | 2017-05-11 12:04 | PN ---
Physical Exam: SUBJECTIVE: Patient seen and examined intubated off sedation, still on four pressers, oxygen desating with minimal nursing care. OBJECTIVE: Vital Signs Period Temp Pulse Resp BP Sys/Pena Pulse Ox Last 24 Hr 98.8 F-102.6 F 78-131 35-35 98-120/50-69 83-93 GENERAL: The patient intubated EYES: pupil fixed and dilated 6mm b/l; no reflexes ENT: intubated LUNGS:coarse breath sounds b/l HEART: Regular rate and rhythm, S1, S2 without murmur, rub or gallop. ABDOMEN: obese; edematous; EXTREMITIES: 2+ pulses, warm, well-perfused, b/l edema UE/LE CBC, BMP 05/10/17 05:00 Active Medications Generic Name Dose Route Start Last Admin Trade Name Freq PRN Reason Stop Dose Admin Albuterol Sulfate 1 amp 05/08/17 23:55 Ventolin 0.083% Nebulizer Soln - NEB Q6H PRN SHORT OF BREATH/WHEEZING Chlorhexidine Gluconate 1 applic 05/08/17 22:00 05/10/17 22:58 Hibiclens For Decolonization - TP 1 applic HS LUNA Administration Heparin Sodium (Porcine) 5,000 unit 05/09/17 06:00 05/11/17 05:50 Heparin - SQ 5,000 unit TID LUNA Administration Hydrocortisone Sodium Succinate 100 mg 05/11/17 02:00 05/11/17 11:36 Solu-Cortef - IVPB 100 mg Q8H-IV LUNA Administration Fentanyl 500 mcg/ Dextrose 100 mls @ 15 mls/hr 05/09/17 10:30 05/11/17 11:34 IJ Not Given TITR LUNA 75 MCG/HR Midazolam HCl 100 mg/ Sodium 100 mls @ 4 mls/hr 05/09/17 12:30 05/10/17 14:08 Chloride IVPB Not Given TITR LUNA Protocol 4 MG/HR Norepinephrine Bitartrate 8, 500 mls @ 18.75 mls/hr 05/09/17 16:00 05/11/17 11: 58 000 mcg/ Dextrose IV 150 mls/hr TITR LUNA Administration Protocol 5 MCG/MIN Phenylephrine HCl 20,000 mcg/ 250 mls @ 75 mls/hr 05/09/17 16:00 05/11/17 05:53 Sodium Chloride IVPB 112.5 mls/hr ASDIR LUNA Administration Protocol 100 MCG/MIN Vasopressin 50 units/ Sodium 100 mls @ 4 mls/hr 05/09/17 16:00 05/11/17 05:53 Chloride IVPB 8 mls/hr ASDIR LUNA Administration Protocol 2 UNITS/HR Doxycycline Hyclate 100 mg/ 100 mls @ 100 mls/hr 05/10/17 02:00 05/11/17 01:45 Dextrose IVPB 100 mls/hr Q12H LUNA Administration Epinephrine HCl 1,000 mcg/ 250 mls @ 180.84 mls/hr 05/10/17 00:53 05/11/17 09: 56 Sodium Chloride IV 180.84 mls/hr ASDIR LUNA Administration Protocol 0.1 MCG/KG/MIN Meropenem 1 gm/ Dextrose 100 mls @ 200 mls/hr 05/10/17 14:00 05/11/17 01:46 IVPB 200 mls/hr Q12H LUNA Administration Insulin Human Regular 100 100 mls @ 13.61 mls/hr 05/10/17 21:43 05/11/17 10:06 units/ Sodium Chloride IVPB 0.07 units/kg/hr TITR LUNA Titration Protocol 0.1 UNITS/KG/HR Calcium Gluconate 10,000 mg/ 1,100 mls @ 100 mls/hr 05/11/17 10:00 05/11/17 09: 06 Sodium Chloride IVPB 05/11/17 20:59 100 mls/hr ONCE ONE Administration Midazolam HCl 4 mg 05/09/17 10:22 05/09/17 14:00 Versed - IVPUSH 4 mg Q2H PRN Administration AGITATION Mupirocin 1 applic 05/08/17 22:00 05/11/17 11:37 Bactroban Ointment (For Decolonization) - NS 05/13/17 21:59 1 applic BID LUNA Administration ASSESSMENT/PLAN: This is a 27 year old female with severe pancreatitis secondary to hypertyglycerlidemia, who developed ARDS with anoxic brain injury and subsequent acute hypoxic respiratory failure now intubated and mechanically ventilated on four pressers with multiple organ failure. #anoxic brain injury progressing to brain secondary to acute respiratory failure due to ARDS -intubated, off sedation and mechanically ventilated AC mode -apnea test unable to perform due to hemodynamic instability -neuro eval for brain -palliative care for GOC #severe pancreatitis secondary to severe hypertryglyceridemia with acute DKA secondary to severe pancreatitis -s/p apharesis; -tryglycerides 900s today; unable to cont w apharesis due to instability -cont insulin drip to assist with lipids with D5 to prevent hypoglycemia; BGM q1h -heme/onc ; endocrine appreciated #severe hypocalemia secondary to severe pancreatitis -cont calcium ggt; rising slowly today -replete mg prn to assist with Ca absorption -f/u bmp q2h #acute renal failure with severe metabolic acidosis most likely secondary to hypovolemic shock secondary to severe pancreatitis acute tubular necrosis -PH 6.9 -given Na bicarb IVP q6h -unstable for hemodialysis -renal consult appreciated FEN: Fluids: cont D5 100mls/hr Electrolytes: f/u ca, bmp q2h Diet: hold feeds VTE: heparin sq Disposition: prognosis very poor; palliative care consulted ; meeting with family to discuss [facility] Problem List - Problems (1) Hypertriglyceridemia Code(s): E78.1 - PURE HYPERGLYCERIDEMIA (2) Multiorgan failure Code(s): KRC0229 - (3) Pancreatitis Code(s): K85.90 - ACUTE PANCREATITIS WITHOUT NECROSIS OR INFECTION, UNSP Qualifiers: Chronicity: acute Pancreatitis type: other Acute pancreatitis complication: unspecified Qualified Code(s): K85.80 - Other acute pancreatitis without necrosis or infection; K85.80 - Other acute pancreatitis without necrosis or infection (4) Cerebral anoxic injury Code(s): G93.1 - ANOXIC BRAIN DAMAGE, NOT ELSEWHERE CLASSIFIED (5) DKA (diabetic ketoacidoses) Code(s): E13.10 - OTH DIABETES MELLITUS WITH KETOACIDOSIS WITHOUT COMA (6) Hemodynamic instability Code(s): R09.89 - OTH SYMPTOMS AND SIGNS INVOLVING THE CIRC AND RESP SYSTEMS (7) Metabolic acidemia Code(s): E87.2 - ACIDOSIS Visit type - Emergency Visit Emergency Visit: Yes ED Registration Date: 05/08/17 Care time: The patient presented to the Emergency Department on the above date and was hospitalized for further evaluation of their emergent condition. - New Patient This patient is new to me today: Yes Date on this admission: 05/11/17 - Critical Care Critical Care patient: Yes Total Critical Care Time (in minutes): 36 Critical Care Statement: The care of this patient involved high complexity decision making to prevent further life threatening deterioration of the patient 's condition and/or to evaluate & treat vital organ system(s) failure or risk of failure.
[2017-05-11 12:33] LABS: ANION GAP 17 (8-16); CO2 10 mmol/L (21-32); CREATININE 6.2 mg/dL (0.55-1.02); GLUCOSE,RANDOM 266 mg/dL (74-106); MAGNESIUM 2.1 mg/dL (1.8-2.4)
[2017-05-11 12:36] LABS: CALCIUM 5.3 mg/dL (8.5-10.1)
[2017-05-11] MEDS: MIDAZOLAM 100 MG in SODIUM CHLORIDE 100 ML IVPB SCH (13:32)
[2017-05-11] MEDS ORDERED: VASOPRESSIN 20 UNITS/ML VIAL IV ONE ×3 (13:41→23:29)
[2017-05-11] MEDS ORDERED: INSULIN REGULAR HUMAN 100 UNITS/ML *VIAL ONE (14:39)
[2017-05-11] MEDS: INSULIN REGULAR 100 UNITS in SODIUM CHLORIDE 99 ML IVPB SCH ×2 (14:40→22:22)
[2017-05-11] MEDS ORDERED: SODIUM BICARBONATE 8.4% 50 MEQ/50 ML DISP.SYRIN IVPUSH ONE (15:27)
[2017-05-11 16:15] LABS: ANION GAP 18 (8-16); CO2 9 mmol/L (21-32); CREATININE 6.3 mg/dL (0.55-1.02); GLUCOSE,RANDOM 273 mg/dL (74-106)
--- NOTE | 2017-05-11 16:19 | PN ---
Teaching Attending Note Name of Resident: Jose Aleman ATTENDING PHYSICIAN STATEMENT I saw and evaluated the patient. I reviewed the resident's note and discussed the case with the resident. I agree with the resident's findings and plan as documented. SUBJECTIVE: unable to obtain hx. no events over night OBJECTIVE: intubated, off sedation , not reactive to sternal rub. dilated pupils, not reactive to light . no corneal reflex. absent Doll's eyes. absent gag reflex CV: regular rhythm , NO MRG Lungs: b/l course breath sounds . clear bases ABd: distended ,No BS .dullness all over . EXt : no edema . DP 2+ b/l. 1+ RP b/l Assessment/Plan: 27 y/o lady with h/o Asthma , who presented with Abd pain , and was found to have DKA, acute pancreatitis and severe hypertricglyceredemia. 1- Hypertriglyceredemia induced acute pancreatitis. - s/p Apheresis 05/09. - unfortunately can't perform CT scan of abd due to being unstable for transport - cAlcium level improved , PH is < 7. given Bicarb push - calcium gtt again today . - cont insulin gtt as her TG is rising again. unfortunately not stable fro another Apheresis - at this point with critical condition, surgery is not an option - repeat lactic acid 2- Shock likely septic shock at this point . - cont pressors ( vasopressin, phenyephrin, Levophed, and Epinephrin) - cont meropenem - cont doxy empirically for possible Liptospirosis - follow blood cx 3- DKA : A1c 10 . - cont insulin gtt and follow labs. - AG is worse due to renal failure 4- Severe metabolic acidosis :mainly due to renal failure at this point - hold off bicarb gtt now 5- Acute respiratory failure , due to severe acidosis - cont vent at AC 6- Unresponsiveness: no brain stem reflexes even after holding sedation > 24 hr. - cont to hold sedation . - Apnea test was not completed due to unsalability during the test. - appreciate NEuro help 7-ABBEY : likely ATN now due to shock. - appreciate renal help - Not stable for HD on 4 pressors . d/w renal and ICU staff 8- Severe hypocalcemia: due to severe pancreatitis - PTH pending - calcium gtt again today D/w Pulm, renal, and hem-onc Poor prognosis
[2017-05-11 16:52] LABS: CALCIUM 5.8 mg/dL (8.5-10.1)
[2017-05-11] MEDS ORDERED: WATER IVPB SCH (17:00)
[2017-05-11] MEDS ORDERED: DEXTROSE IVPB SCH (17:00)
[2017-05-11] MEDS ORDERED: CALCIUM GLUCONATE IVPB SCH (17:00)
--- NOTE | 2017-05-11 17:02 | PN ---
Progress Note, Physician History of Present Illness: Pt seen and examined at bedside. She remains in the ICU. She remains intubated and mechanically ventilated. Pt is on 4 pressor agents. - Current Medication List Current Medications: Active Medications Albuterol Sulfate (Ventolin 0.083% Nebulizer Soln -) 1 amp NEB Q6H PRN PRN Reason: SHORT OF BREATH/WHEEZING Chlorhexidine Gluconate (Hibiclens For Decolonization -) 1 applic TP HS LUNA Last Admin: 05/10/17 22:58 Dose: 1 applic Heparin Sodium (Porcine) (Heparin -) 5,000 unit SQ TID LUNA Last Admin: 05/11/17 13:33 Dose: 5,000 unit Hydrocortisone Sodium Succinate (Solu-Cortef -) 100 mg IVPB Q8H-IV LUNA Last Admin: 05/11/17 11:36 Dose: 100 mg Fentanyl 500 mcg/ Dextrose 100 mls @ 15 mls/hr IJ TITR LUNA PRN Reason: 75 MCG/HR Last Admin: 05/11/17 11:34 Dose: Not Given Midazolam HCl 100 mg/ Sodium (Chloride) 100 mls @ 4 mls/hr IVPB TITR LUNA; 4 MG/ HR PRN Reason: Protocol Last Admin: 05/11/17 13:32 Dose: Not Given Norepinephrine Bitartrate 8, (000 mcg/ Dextrose) 500 mls @ 18.75 mls/hr IV TITR LUNA; 5 MCG/MIN PRN Reason: Protocol Last Admin: 05/11/17 11:58 Dose: 150 mls/hr Phenylephrine HCl 20,000 mcg/ (Sodium Chloride) 250 mls @ 75 mls/hr IVPB ASDIR LUNA; 100 MCG/MIN PRN Reason: Protocol Last Admin: 05/11/17 05:53 Dose: 112.5 mls/hr Vasopressin 50 units/ Sodium (Chloride) 100 mls @ 4 mls/hr IVPB ASDIR LUNA; 2 UNITS/HR PRN Reason: Protocol Last Admin: 05/11/17 05:53 Dose: 8 mls/hr Doxycycline Hyclate 100 mg/ (Dextrose) 100 mls @ 100 mls/hr IVPB Q12H LUNA Last Admin: 05/11/17 13:33 Dose: 100 mls/hr Epinephrine HCl 1,000 mcg/ (Sodium Chloride) 250 mls @ 180.84 mls/hr IV ASDIR LUNA; 0.1 MCG/KG/MIN PRN Reason: Protocol Last Admin: 05/11/17 09:56 Dose: 180.84 mls/hr Meropenem 1 gm/ Dextrose 100 mls @ 200 mls/hr IVPB Q12H LUNA Last Admin: 05/11/17 13:33 Dose: 200 mls/hr Insulin Human Regular 100 (units/ Sodium Chloride) 100 mls @ 13.61 mls/hr IVPB TITR LUNA; 0.1 UNITS/KG/HR PRN Reason: Protocol Last Admin: 05/11/17 14:40 Dose: 10 mls/hr Calcium Gluconate 10,000 mg/ (Dextrose) 1,100 mls @ 100 mls/hr IVPB .Q10H LUNA Midazolam HCl (Versed -) 4 mg IVPUSH Q2H PRN PRN Reason: AGITATION Last Admin: 05/09/17 14:00 Dose: 4 mg Mupirocin (Bactroban Ointment (For Decolonization) -) 1 applic NS BID LUNA Stop: 05/13/17 21:59 Last Admin: 05/11/17 11:37 Dose: 1 applic - Objective Vital Signs: Vital Signs Temperature 99.6 F 05/11/17 15:00 Pulse Rate 129 H 05/11/17 15:00 Respiratory Rate 35 H 05/11/17 14:15 Blood Pressure 109/60 05/11/17 15:00 O2 Sat by Pulse Oximetry (%) 82 L 05/11/17 15:48 Constitutional: Yes: Calm Cardiovascular: Yes: Tachycardia, S1, S2 Respiratory: Yes: Mechanically Ventilated, Rhonchi Gastrointestinal: Yes: Soft, Abdomen, Obese Genitourinary: Yes: Hugo Present, Oliguria Musculoskeletal: Yes: Muscle Weakness Edema: Yes Edema: LLE: 2+, RLE: 2+ Neurological: Yes: Lethargy Labs: CBC, BMP 05/10/17 05:00 05/11/17 15:20 INR, PTT INR 1.25 (0.82-1.09) H 05/11/17 05:00 Fibrinogen 486.0 mg/dL (238-498) D 05/11/17 05:00 Assessment/Plan Current Medications Generic Name Dose Route Start Last Admin Trade Name Freq PRN Reason Stop Dose Admin Albuterol Sulfate 1 amp 05/08/17 23:55 Ventolin 0.083% Nebulizer Soln - NEB Q6H PRN SHORT OF BREATH/WHEEZING Chlorhexidine Gluconate 1 applic 05/08/17 22:00 05/10/17 22:58 Hibiclens For Decolonization - TP 1 applic HS ULNA Administration Heparin Sodium (Porcine) 5,000 unit 05/09/17 06:00 05/11/17 13:33 Heparin - SQ 5,000 unit TID LUNA Administration Hydrocortisone Sodium Succinate 100 mg 05/11/17 02:00 05/11/17 11:36 Solu-Cortef - IVPB 100 mg Q8H-IV LUNA Administration Fentanyl 500 mcg/ Dextrose 100 mls @ 15 mls/hr 05/09/17 10:30 05/11/17 11:34 IJ Not Given TITR LUNA 75 MCG/HR Midazolam HCl 100 mg/ Sodium 100 mls @ 4 mls/hr 05/09/17 12:30 05/11/17 13:32 Chloride IVPB Not Given TITR LUNA Protocol 4 MG/HR Norepinephrine Bitartrate 8, 500 mls @ 18.75 mls/hr 05/09/17 16:00 05/11/17 11: 58 000 mcg/ Dextrose IV 150 mls/hr TITR LUNA Administration Protocol 5 MCG/MIN Phenylephrine HCl 20,000 mcg/ 250 mls @ 75 mls/hr 05/09/17 16:00 05/11/17 05:53 Sodium Chloride IVPB 112.5 mls/hr ASDIR LUNA Administration Protocol 100 MCG/MIN Vasopressin 50 units/ Sodium 100 mls @ 4 mls/hr 05/09/17 16:00 05/11/17 05:53 Chloride IVPB 8 mls/hr ASDIR LUNA Administration Protocol 2 UNITS/HR Doxycycline Hyclate 100 mg/ 100 mls @ 100 mls/hr 05/10/17 02:00 05/11/17 13:33 Dextrose IVPB 100 mls/hr Q12H LUNA Administration Epinephrine HCl 1,000 mcg/ 250 mls @ 180.84 mls/hr 05/10/17 00:53 05/11/17 09: 56 Sodium Chloride IV 180.84 mls/hr ASDIR LUNA Administration Protocol 0.1 MCG/KG/MIN Meropenem 1 gm/ Dextrose 100 mls @ 200 mls/hr 05/10/17 14:00 05/11/17 13:33 IVPB 200 mls/hr Q12H LUNA Administration Insulin Human Regular 100 100 mls @ 13.61 mls/hr 05/10/17 21:43 05/11/17 14:40 units/ Sodium Chloride IVPB 10 mls/hr TITR LUNA Administration Protocol 0.1 UNITS/KG/HR Calcium Gluconate 10,000 mg/ 1,100 mls @ 100 mls/hr 05/11/17 17:00 Dextrose IVPB .Q10H LUNA Midazolam HCl 4 mg 05/09/17 10:22 05/09/17 14:00 Versed - IVPUSH 4 mg Q2H PRN Administration AGITATION Mupirocin 1 applic 05/08/17 22:00 05/11/17 11:37 Bactroban Ointment (For Decolonization) - NS 05/13/17 21:59 1 applic BID LUNA Administration Laboratory Tests 05/10/17 05/10/17 02:00 14:31 MARTA Screen Pending c-ANCA Pending Proteinase 3 (PR3) Pending p-ANCA Pending Atypical p-ANCA Pending Myeloperoxidase Ab Pending Double Strand DNA Ab Pending Glomerular Base Memb Ab Pending Hepatitis A IgM Ab Negative Hep Bs Antigen Negative Hep B Core IgM Ab Negative Hepatitis C Ab (EIA) <0.1 Impression 1. ABBEY 2. pancreatities 3. ARDS 4. shock 5. acute respiratory failure 6. DKA 7. hypotension 8. hypocalcemia 9. hypertriglyceridemia 10. multi-organ system failure 11. hypomagnesemia Plan - renal failure is worsening - pt has multi-organ system failure - calcium is starting to improve - pt remains on four pressor agents - discussed with ICU, unable to get cxr as she becomes hypoxic when moved - apharesis on hold as she is unstable - unable to offer HD as she is hypotensive on pressors - can start bicarb - discussed with critical care team - discussed with medical attending - neuro input appreciated - apnea test could not be done as she did not tolerate it - family meeting for [facility] - prognosis is poor at this point
[2017-05-11] MEDS ORDERED: SODIUM BICARBONATE 8.4% - 50 ML ONE ×2 (17:33→19:46)
[2017-05-11] MEDS ORDERED: AMIODARONE HCL INJECTION 150 MG in DEXTROSE 5%-WATER - 97 ML IVPB ONE (17:40)
[2017-05-11] MEDS ORDERED: AMIODARONE HCL 150 MG/3 ML VIAL ONE (17:41)
[2017-05-11] MEDS ORDERED: AMIODARONE HCL INJECTION 450 MG in DEXTROSE 5%-WATER - 241 ML IVPB SCH ×2 (17:45→23:45)
--- NOTE | 2017-05-11 17:52 | HOSP ---
Physical Examination Vital Signs: Vital Signs Temperature 100.8 F H 05/11/17 17:00 Pulse Rate 129 H 05/11/17 17:00 Respiratory Rate 35 H 05/11/17 17:00 Blood Pressure 104/49 05/11/17 17:00 O2 Sat by Pulse Oximetry (%) 82 L 05/11/17 15:48 Labs: CBC, BMP 05/10/17 05:00 05/11/17 15:20 Hospitalist Encounter Assessment: Code 99 called in the ICU bed 15 Patient was found to have Pulseless Vtach with one minute of compressions done Upon my arrival patient was found to have a pulse with Sinus tachycardia BP was 104/49 HR 130's RR:35 Glucose: 253 Amiodarone bolus and drip started Patient is on mechanical ventilation TV: 350 PEEP:12 Fi02: 100% Peak Flow: 70 Continue to monitor in ICU Dr. Perez and Dr. Aguilar at bedside Jeanette Chiu, PGY-2 Visit type - Emergency Visit Emergency Visit: Yes ED Registration Date: 05/08/17 Care time: The patient presented to the Emergency Department on the above date and was hospitalized for further evaluation of their emergent condition. - New Patient This patient is new to me today: Yes Date on this admission: 05/11/17 - Critical Care Critical Care patient: Yes Total Critical Care Time (in minutes): 35 Critical Care Statement: The care of this patient involved high complexity decision making to prevent further life threatening deterioration of the patient 's condition and/or to evaluate & treat vital organ system(s) failure or risk of failure.
--- NOTE | 2017-05-11 18:06 | PN ---
Progress Note (short form) - Note Progress Note: Code 99 was called. patient had pulsless Vtech, CPR was done for one minute. Patient Changed to sinus and pulses get palpable. case discussed with Dr Asha Chen Patient has elevated liver enzymes, so we will not give Amiadarone as it can effect liver function. BP was 104/49 on pressor support HR 130's Glucose: 253 Patient is on mechanical ventilation TV: 350 PEEP:12 Fi02: 100% Peak Flow: 70 Not responding to painfull stimuli, Pupil dilated, non reacting to light. Chest; b/l airentry present on ventilator. Plan repeat CMP and electrolytes stat. Monitor vitals Condition explained to patient family.
--- NOTE | 2017-05-11 18:11 | PN ---
Progress Note, Physician History of Present Illness: no gross change family in room - Current Medication List Current Medications: Active Medications Albuterol Sulfate (Ventolin 0.083% Nebulizer Soln -) 1 amp NEB Q6H PRN PRN Reason: SHORT OF BREATH/WHEEZING Chlorhexidine Gluconate (Hibiclens For Decolonization -) 1 applic TP HS LUNA Last Admin: 05/10/17 22:58 Dose: 1 applic Heparin Sodium (Porcine) (Heparin -) 5,000 unit SQ TID LUNA Last Admin: 05/11/17 13:33 Dose: 5,000 unit Hydrocortisone Sodium Succinate (Solu-Cortef -) 100 mg IVPB Q8H-IV LUNA Last Admin: 05/11/17 11:36 Dose: 100 mg Fentanyl 500 mcg/ Dextrose 100 mls @ 15 mls/hr IJ TITR LUNA PRN Reason: 75 MCG/HR Last Admin: 05/11/17 11:34 Dose: Not Given Midazolam HCl 100 mg/ Sodium (Chloride) 100 mls @ 4 mls/hr IVPB TITR LUNA; 4 MG/ HR PRN Reason: Protocol Last Admin: 05/11/17 13:32 Dose: Not Given Norepinephrine Bitartrate 8, (000 mcg/ Dextrose) 500 mls @ 18.75 mls/hr IV TITR LUNA; 5 MCG/MIN PRN Reason: Protocol Last Admin: 05/11/17 15:30 Dose: 150 mls/hr Phenylephrine HCl 20,000 mcg/ (Sodium Chloride) 250 mls @ 75 mls/hr IVPB ASDIR LUNA; 100 MCG/MIN PRN Reason: Protocol Last Admin: 05/11/17 16:00 Dose: 112.5 mls/hr Vasopressin 50 units/ Sodium (Chloride) 100 mls @ 4 mls/hr IVPB ASDIR LUNA; 2 UNITS/HR PRN Reason: Protocol Last Admin: 05/11/17 17:25 Dose: 8 mls/hr Doxycycline Hyclate 100 mg/ (Dextrose) 100 mls @ 100 mls/hr IVPB Q12H LUNA Last Admin: 05/11/17 13:33 Dose: 100 mls/hr Epinephrine HCl 1,000 mcg/ (Sodium Chloride) 250 mls @ 180.84 mls/hr IV ASDIR LUNA; 0.1 MCG/KG/MIN PRN Reason: Protocol Last Admin: 05/11/17 09:56 Dose: 180.84 mls/hr Meropenem 1 gm/ Dextrose 100 mls @ 200 mls/hr IVPB Q12H LUNA Last Admin: 05/11/17 13:33 Dose: 200 mls/hr Insulin Human Regular 100 (units/ Sodium Chloride) 100 mls @ 13.61 mls/hr IVPB TITR LUNA; 0.1 UNITS/KG/HR PRN Reason: Protocol Last Admin: 05/11/17 14:40 Dose: 10 mls/hr Calcium Gluconate 10,000 mg/ (Dextrose) 1,100 mls @ 100 mls/hr IVPB .Q10H LUNA Amiodarone HCl 450 mg/ (Dextrose) 250 mls @ 33.33 mls/hr IVPB TITR LUNA; 1 MG/ MIN PRN Reason: Protocol Stop: 05/11/17 23:44 Amiodarone HCl 450 mg/ (Dextrose) 250 mls @ 16.66 mls/hr IVPB TITR LUNA; 0.5 MG/ MIN PRN Reason: Protocol Stop: 05/12/17 17:44 Midazolam HCl (Versed -) 4 mg IVPUSH Q2H PRN PRN Reason: AGITATION Last Admin: 05/09/17 14:00 Dose: 4 mg Mupirocin (Bactroban Ointment (For Decolonization) -) 1 applic NS BID LUNA Stop: 05/13/17 21:59 Last Admin: 05/11/17 11:37 Dose: 1 applic - Objective Vital Signs: Vital Signs Temperature 100.8 F H 05/11/17 17:00 Pulse Rate 129 H 05/11/17 17:00 Respiratory Rate 35 H 05/11/17 17:00 Blood Pressure 104/49 05/11/17 17:00 O2 Sat by Pulse Oximetry (%) 82 L 05/11/17 15:48 Constitutional: Yes: Other Neck: Yes: Supple, Trachea Midline Cardiovascular: Yes: Regular Rate and Rhythm Respiratory: Yes: Intubated, Mechanically Ventilated Gastrointestinal: Yes: Normal Bowel Sounds, Soft Musculoskeletal: Yes: WNL Extremities: Yes: WNL Neurological: Yes: Other Psychiatric: Yes: Other Labs: CBC, BMP 05/10/17 05:00 INR, PTT INR 1.25 (0.82-1.09) H 05/11/17 05:00 Fibrinogen 486.0 mg/dL (238-498) D 05/11/17 05:00 Assessment/Plan Problem List - Problems (1) Pancreatitis Code(s): K85.90 - ACUTE PANCREATITIS WITHOUT NECROSIS OR INFECTION, UNSP (2) DKA (diabetic ketoacidoses) Code(s): E13.10 - OTH DIABETES MELLITUS WITH KETOACIDOSIS WITHOUT COMA Acute Respiratory Failure Suspected Anoxic Brain injury progressing to Brain . Morbid obesity DKA HTN Pancreatitis likley 2/2 hyperlipidemia/triglyceridemia ARDS ARF plan continue supportive care vent support continue as per icu pupils dilated and fixed prognosis poor rest as per icu cc time 40 min
--- NOTE | 2017-05-11 18:14 | PN ---
Progress Note (short form) - Note Progress Note: Events noted unresponsive on ventilatory support Vital Signs Period Temp Pulse Resp BP Sys/Pena Pulse Ox Last 24 Hr 99.6 F-102.6 F 125-131 35-35 89-120/49-67 82-93 PE: unresponsive, intubated HEENT: dilated pupils Neck: Supple Lungs: CTA Abd: Bening CVS: S1S2 CBCD WBC 11.6 K/mm3 (4.0-10.0) H 05/10/17 05:00 RBC 4.53 M/mm3 (3.60-5.2) 05/10/17 05:00 Hgb 11.7 GM/dL (10.7-15.3) 05/10/17 05:00 Hct 36.0 % (32.4-45.2) 05/10/17 05:00 MCV 79.5 fl (80-96) L 05/10/17 05:00 MCHC 32.6 g/dl (32.0-36.0) 05/10/17 05:00 RDW 16.3 % (11.6-15.6) H 05/10/17 05:00 Plt Count 159 K/MM3 (134-434) D 05/10/17 05:00 MPV 10.5 fl (7.5-11.1) 05/10/17 05:00 CMP Sodium 128 mmol/L (136-145) L 05/11/17 15:20 Potassium 5.4 mmol/L (3.5-5.1) H 05/11/17 15:20 Chloride 101 mmol/L (98-107) 05/11/17 15:20 Carbon Dioxide 9 mmol/L (21-32) L 05/11/17 15:20 Anion Gap 18 (8-16) H 05/11/17 15:20 BUN 23 mg/dL (7-18) H 05/11/17 15:20 Creatinine 6.3 mg/dL (0.55-1.02) H 05/11/17 15:20 Creat Clearance w eGFR 12.51 (>60) 05/10/17 05:00 Calcium 5.8 mg/dL (8.5-10.1) L* 05/11/17 15:20 Total Bilirubin 0.8 mg/dL (0.2-1.0) D 05/10/17 05:00 AST 1042 U/L (15-37) H 05/10/17 05:00 ALT 275 U/L (12-78) H D 05/10/17 05:00 Alkaline Phosphatase 26 U/L (45-117) L D 05/10/17 05:00 Total Protein 4.0 g/dl (6.4-8.2) L 05/10/17 05:00 Albumin 2.8 g/dl (3.4-5.0) L D 05/10/17 05:00 AP: Anoxic brain injury: Neurology consult noted Respiratory failure DKA: resolved Acute Pancreatitis Hypertriglyceridemia ABBEY with worsening acidosis Electrolyte Imbalance Elevated LFTs On Ventilatory and pressure support S/P Apheresis Continue Insulin drip for now as this will also help to lower Triglyceride levels BGM Q one Hr Adjust Insulin drip as necessary to maintain blood sugar 120 to 180 if possible Add D5 or D10 as necessary to maintain blood sugar >120 if necessary Electrolyte replacement as necessary Discussed with housestaff. Prognosis grave
[2017-05-11 18:52] LABS: ANION GAP 20 (8-16); CO2 9 mmol/L (21-32); CREATININE 6.4 mg/dL (0.55-1.02); GLUCOSE,RANDOM 265 mg/dL (74-106)
[2017-05-11 18:54] LABS: ALBUMIN 1.8 g/dl (3.4-5.0); ALK PHOS 105 U/L (45-117); ANION GAP 19 (8-16); BILIRUBIN,TOTAL 1.1 mg/dL (0.2-1.0); CO2 9 mmol/L (21-32); CREATININE 6.4 mg/dL (0.55-1.02); GLUCOSE,RANDOM 278 mg/dL (74-106); MAGNESIUM 2.1 mg/dL (1.8-2.4)
[2017-05-11 19:06] LABS: CALCIUM 5.6 mg/dL (8.5-10.1)
[2017-05-11] MEDS ORDERED: DEXTROSE IV SCH (19:09)
[2017-05-11] MEDS ORDERED: WATER IV SCH (19:09)
[2017-05-11] MEDS ORDERED: CALCIUM GLUCONATE IV SCH (19:09)
[2017-05-11 19:15] LABS: SGOT/AST 5526 U/L (15-37); SGPT/ALT 1574 U/L (12-78)
[2017-05-11 19:17] LABS: CALCIUM 5.8 mg/dL (8.5-10.1)
[2017-05-11] MEDS ORDERED: SODIUM BICARBONATE 8.4% 50 MEQ/50 ML VIAL IV SCH (19:30)
[2017-05-11] MEDS: DEXTROSE IV SCH (20:00)
[2017-05-11] MEDS: CALCIUM GLUCONATE IV SCH (20:00)
[2017-05-11] MEDS: WATER IV SCH (20:00)
[2017-05-11] MEDS ORDERED: SODIUM BICARBONATE 8.4% 50 MEQ/50 ML VIAL IVPUSH SCH (20:38)
[2017-05-11 20:40] LABS: ANION GAP 15 (8-16); CO2 11 mmol/L (21-32); CREATININE 6.5 mg/dL (0.55-1.02); GLUCOSE,RANDOM 263 mg/dL (74-106)
[2017-05-11 20:43] LABS: CALCIUM 5.9 mg/dL (8.5-10.1)
[2017-05-11 21:53] LABS: ANION GAP 18 (8-16); CO2 10 mmol/L (21-32); CREATININE 6.5 mg/dL (0.55-1.02); GLUCOSE,RANDOM 281 mg/dL (74-106)
[2017-05-11 22:18] LABS: CALCIUM 5.8 mg/dL (8.5-10.1)
[2017-05-11] MEDS ORDERED: SODIUM BICARBONATE 8.4% 50 MEQ/50 ML VIAL ONE (22:19)
[2017-05-11] MEDS: CHLORHEXIDINE GLUCONATE 4% CLEANSER FOR DECOLONIZATION TP SCH (22:21)
[2017-05-11] MEDS: SODIUM BICARBONATE 8.4% 50 MEQ/50 ML DISP.SYRIN IVPUSH SCH (22:21)
[2017-05-12 00:10] LABS: ANION GAP 20 (8-16); CO2 9 mmol/L (21-32); CREATININE 6.6 mg/dL (0.55-1.02); GLUCOSE,RANDOM 291 mg/dL (74-106)
[2017-05-12 00:12] LABS: CALCIUM 5.8 mg/dL (8.5-10.1)
[2017-05-12] MEDS: NOREPINEPHRINE BITARTRATE 8,000 MCG in DEXTROSE 5%-WATER - 492 ML IV SCH ×6 (01:42→19:09)
[2017-05-12] MEDS: PHENYLEPHRINE HCL 20,000 MCG in SODIUM CHLORIDE 248 ML IVPB SCH ×5 (01:43→19:09)
[2017-05-12] MEDS: SODIUM CHLORIDE IV SCH ×4 (01:44→13:16)
[2017-05-12] MEDS: EPINEPHRINE IV SCH ×4 (01:44→13:16)
[2017-05-12] MEDS ORDERED: PT OWN MED DRAWER 7, Y5N ONE ×3 (01:48→11:57)
[2017-05-12] MEDS: SODIUM BICARBONATE 8.4% 50 MEQ/50 ML DISP.SYRIN IVPUSH SCH ×4 (01:49→21:37)
[2017-05-12] MEDS: DOXYCYCLINE INJECTION 100 MG in DEXTROSE 5%-WATER - 100 ML IVPB SCH ×2 (01:49→13:57)
[2017-05-12] MEDS: HYDROCORTISONE SOD SUCCINATE 100 MG/2 ML VIAL IVPB SCH ×3 (01:49→17:53)
[2017-05-12] MEDS: MEROPENEM 1 GM in DEXTROSE 5%-WATER - 100 ML IVPB SCH ×2 (01:49→13:56)
[2017-05-12 02:04] LABS: ANION GAP 20 (8-16); CO2 10 mmol/L (21-32); CREATININE 6.6 mg/dL (0.55-1.02)
[2017-05-12 02:16] LABS: CALCIUM 5.9 mg/dL (8.5-10.1); GLUCOSE,RANDOM 312 mg/dL (74-106)
[2017-05-12] MEDS: INSULIN REGULAR 100 UNITS in SODIUM CHLORIDE 99 ML IVPB SCH ×3 (02:20→21:48)
[2017-05-12] MEDS: VASOPRESSIN 50 UNITS in SODIUM CHLORIDE 97.5 ML IVPB SCH ×3 (05:24→19:09)
[2017-05-12] MEDS: HEPARIN NA (PORCINE) 5,000 UNITS/ML 1ML VIAL SQ SCH ×3 (05:47→21:47)
[2017-05-12 05:48] LABS: ANION GAP 20 (8-16); CO2 10 mmol/L (21-32); CREATININE 6.8 mg/dL (0.55-1.02)
[2017-05-12 06:03] LABS: BASOPHIL 1.3 % (0-2.0); EOSINOPHIL 0.1 % (0-4.5); MCH 25.6 pg (25.7-33.7); MEAN CELL VOLUME 79.9 fl (80-96); MEAN PLT VOLUME 9.9 fl (7.5-11.1); NEUTROPHILS 83.4 % (42.8-82.8); PLATELET COUNT 188 K/MM3 (134-434); RDW 16.5 % (11.6-15.6); WHITE BLOOD COUNT 14.1 K/mm3 (4.0-10.0)
[2017-05-12 06:13] LABS: GLUCOSE,RANDOM 320 mg/dL (74-106)
[2017-05-12 06:25] LABS: INR 1.13 (0.82-1.09); PROTHROMBIN TIME (PATIENT) 12.8 SEC (9.98-11.88)
[2017-05-12 07:12] LABS: ALBUMIN 1.7 g/dl (3.4-5.0); ALK PHOS 126 U/L (45-117); ANION GAP 20 (8-16); BILIRUBIN,TOTAL 1.7 mg/dL (0.2-1.0); CO2 10 mmol/L (21-32); CREATININE 6.9 mg/dL (0.55-1.02); TOT PROT 4.1 g/dl (6.4-8.2)
[2017-05-12 07:37] LABS: GLUCOSE,RANDOM 316 mg/dL (74-106); SGOT/AST 2960 U/L (15-37); SGPT/ALT 1223 U/L (12-78)
[2017-05-12 07:38] LABS: CALCIUM 6.3 mg/dL (8.5-10.1)
[2017-05-12] MEDS: DEXTROSE IV SCH (07:57)
[2017-05-12] MEDS: WATER IV SCH (07:57)
[2017-05-12] MEDS: CALCIUM GLUCONATE IV SCH (07:57)
[2017-05-12] MEDS ORDERED: NOREPINEPHRINE BITARTRATE 4 MG/4 ML ML IV ONE ×4 (08:08→19:35)
[2017-05-12] MEDS ORDERED: SODIUM BICARBONATE 8.4% 50 MEQ/50 ML VIAL ONE ×2 (08:09→11:57)
[2017-05-12] MEDS ORDERED: PHENYLEPHRINE HCL 10 MG/1 ML SINGLE DOSE VIAL ONE ×6 (08:10→19:38)
[2017-05-12 08:52] LABS: ARTERIAL BLD GAS O2 SATURATION 85.5 % (90-98.9); ARTERIAL BLOOD GAS BASE EXCESS -20.4 meq/l (-2-2); ARTERIAL BLOOD GAS HCO3 9.7 meq/L (22-26)
[2017-05-12 08:53] LABS: ARTERIAL BLOOD GAS pH 6.99 (7.35-7.45); MECH. VENT. Y; TYPE OF O2 VENT; VENT RATE 35; VT/PRESS 350
[2017-05-12 09:43] LABS: ANION GAP 18 (8-16); CO2 11 mmol/L (21-32); CREATININE 7.2 mg/dL (0.55-1.02)
--- NOTE | 2017-05-12 09:55 | CONSULT ---
Consult - text type - Consultation Consultation Note: Neurology CHIEF COMPLAINT: abdominal pain, nausea/vomiting. HISTORY OF PRESENT ILLNESS: 27 yr old with asthma, HTN, and morbid obesity presents to the ED with nausea and nonbloody, nonbilous vomiting. She was diagnosed with pancreatitis with highly elevated TG. During hospitalization with multiple organ failure, she had respiratory failure, intubated and ventilated in ICU. She has been put on multiple pressors. She was seen by neurologist who deemed absence of brain stem reflexes, family requested second opinion. Completed exam at bedside with nurse and agree with prior assessment. She does not have pupil response, dilated and fixed, no corneals, gag absent, no response no noxious stimulation, toes mute. She is not on sedation. PAST MEDICAL HISTORY: HTN Asthma - well controlled, no ICU, no intubations PAST SURGICAL HISTORY: cholecystectomy 2007 Social History: Smoking:denies Alcohol:denies Drugs: denies Family History: cousins with DM Allergies iodine Allergy (Verified 05/08/17 14:43) Swelling latex Allergy (Verified 05/08/17 14:43) Rash HOME MEDICATIONS: Avipro 300mg po daily for HTN REVIEW OF SYSTEMS Unable 2/2 comatose status PHYSICAL EXAMINATION Vital Signs Period Temp Pulse Resp BP Sys/Pena Pulse Ox Last 24 Hr 99.6 F-101.5 F 118-220 35-35 79-120/38-75 80-89 Comastose, no spontaneous movements Mechanical breath sounds Pupil fixed and dilated Negative corneal response Gag reflex absent No response to sternal rub Toes mute to plantar Not overbreathing vent CBCD WBC 14.1 K/mm3 (4.0-10.0) H 05/12/17 05:25 RBC 3.55 M/mm3 (3.60-5.2) L D 05/12/17 05:25 Hgb 9.1 GM/dL (10.7-15.3) L D 05/12/17 05:25 Hct 28.4 % (32.4-45.2) L D 05/12/17 05:25 MCV 79.9 fl (80-96) L 05/12/17 05:25 MCHC 32.0 g/dl (32.0-36.0) 05/12/17 05:25 RDW 16.5 % (11.6-15.6) H 05/12/17 05:25 Plt Count 188 K/MM3 (134-434) 05/12/17 05:25 MPV 9.9 fl (7.5-11.1) 05/12/17 05:25 CMP Sodium 126 mmol/L (136-145) L 05/12/17 05:25 Potassium 5.4 mmol/L (3.5-5.1) H 05/12/17 05:25 Chloride 96 mmol/L (98-107) L 05/12/17 05:25 Carbon Dioxide 10 mmol/L (21-32) L 05/12/17 05:25 Anion Gap 20 (8-16) H 05/12/17 05:25 BUN 28 mg/dL (7-18) H 05/12/17 05:25 Creatinine 6.9 mg/dL (0.55-1.02) H 05/12/17 05:25 Creat Clearance w eGFR 7.06 (>60) 05/12/17 05:25 Random Glucose 316 mg/dL (74-106) H* 05/12/17 05:25 Calcium 6.3 mg/dL (8.5-10.1) L* 05/12/17 05:25 Total Bilirubin 1.7 mg/dL (0.2-1.0) H D 05/12/17 05:25 AST 2960 U/L (15-37) H 05/12/17 05:25 ALT 1223 U/L (12-78) H D 05/12/17 05:25 Alkaline Phosphatase 126 U/L (45-117) H 05/12/17 05:25 Total Protein 4.1 g/dl (6.4-8.2) L 05/12/17 05:25 Albumin 1.7 g/dl (3.4-5.0) L 05/12/17 05:25 CARDIAC ENZYMES Creatine Kinase 990 IU/L (26-192) H 05/10/17 05:00 Troponin I 0.61 ng/ml (0.00-0.05) H* 05/10/17 05:00 ASSESSMENT/PLAN: 27 yr old woman with HTN, presents with n/v a/w abdominal pain found to have elevated lipase and DKA admitted to ICU for further evalatuon and management. During hospitalization with multiple organ failure, she had respiratory failure , intubated and ventilated in ICU. She has been put on multiple pressors. She was seen by neurologist who deemed absence of brain stem reflexes, family requested second opinion. Completed exam at bedside with nurse and agree with prior assessment. She does not have pupil response, dilated and fixed, no corneals, gag absent, no response no noxious stimulation, toes mute. She is not on sedation. This is consistent with lack of brain stem activity and brain . Likely anoxic brain injury and multiorgan failure as underlying causes. Apnea test per respiratory/ICU. Critical care 45 mins.
[2017-05-12 10:05] LABS: CALCIUM 6.3 mg/dL (8.5-10.1); GLUCOSE,RANDOM 330 mg/dL (74-106)
[2017-05-12] MEDS: MUPIROCIN 2% TOPICAL OINTMENT FOR DECOLONIZATION NS SCH ×2 (10:07→21:47)
--- NOTE | 2017-05-12 10:14 | PN ---
Progress Note (short form) - Note Progress Note: Last Vital Signs Patient seen and examined Cor: tachy hypoxic Lungs: clear anteriorly Abd: Anasarca+ Ext:++ significant edema Skin: No rashes noted Labs reviewed Temp Pulse Resp BP Pulse Ox 100.1 F H 118 H 35 H 88/40 80 L 05/12/17 09:00 05/12/17 09:00 05/12/17 09:03 05/12/17 09:00 05/12/17 09:29 Current Medications Generic Name Dose Route Start Last Admin Trade Name Freq PRN Reason Stop Dose Admin Albuterol Sulfate 1 amp 05/08/17 23:55 Ventolin 0.083% Nebulizer Soln - NEB Q6H PRN SHORT OF BREATH/WHEEZING Chlorhexidine Gluconate 1 applic 05/08/17 22:00 05/11/17 22:21 Hibiclens For Decolonization - TP 1 applic HS LUNA Administration Heparin Sodium (Porcine) 5,000 unit 05/09/17 06:00 05/12/17 05:47 Heparin - SQ 5,000 unit TID LUNA Administration Hydrocortisone Sodium Succinate 100 mg 05/11/17 02:00 05/12/17 10:03 Solu-Cortef - IVPB 100 mg Q8H-IV LUNA Administration Fentanyl 500 mcg/ Dextrose 100 mls @ 15 mls/hr 05/09/17 10:30 05/11/17 11:34 IJ Not Given TITR LUNA 75 MCG/HR Midazolam HCl 100 mg/ Sodium 100 mls @ 4 mls/hr 05/09/17 12:30 05/11/17 13:32 Chloride IVPB Not Given TITR LUNA Protocol 4 MG/HR Norepinephrine Bitartrate 8, 500 mls @ 18.75 mls/hr 05/09/17 16:00 05/12/17 05: 22 000 mcg/ Dextrose IV 131.25 mls/hr TITR LUNA Administration Protocol 5 MCG/MIN Phenylephrine HCl 20,000 mcg/ 250 mls @ 75 mls/hr 05/09/17 16:00 05/12/17 08:32 Sodium Chloride IVPB 112.5 mls/hr ASDIR LUNA Administration Protocol 100 MCG/MIN Vasopressin 50 units/ Sodium 100 mls @ 4 mls/hr 05/09/17 16:00 05/12/17 05:24 Chloride IVPB 8 mls/hr ASDIR LUNA Administration Protocol 2 UNITS/HR Doxycycline Hyclate 100 mg/ 100 mls @ 100 mls/hr 05/10/17 02:00 05/12/17 01:49 Dextrose IVPB 100 mls/hr Q12H LUNA Administration Epinephrine HCl 1,000 mcg/ 250 mls @ 180.84 mls/hr 05/10/17 00:53 05/12/17 05: 23 Sodium Chloride IV 150 mls/hr ASDIR LUNA Administration Protocol 0.1 MCG/KG/MIN Meropenem 1 gm/ Dextrose 100 mls @ 200 mls/hr 05/10/17 14:00 05/12/17 01:49 IVPB 200 mls/hr Q12H LUNA Administration Insulin Human Regular 100 100 mls @ 13.61 mls/hr 05/10/17 21:43 05/12/17 02:20 units/ Sodium Chloride IVPB 10 mls/hr TITR LUNA Administration Protocol 0.1 UNITS/KG/HR Calcium Gluconate 10,000 mg/ 1,100 mls @ 100 mls/hr 05/11/17 22:45 05/12/17 07: 57 Dextrose IV 100 mls/hr .Q10H LUNA Administration Midazolam HCl 4 mg 05/09/17 10:22 05/09/17 14:00 Versed - IVPUSH 4 mg Q2H PRN Administration AGITATION Mupirocin 1 applic 05/08/17 22:00 05/12/17 10:07 Bactroban Ointment (For Decolonization) - NS 05/13/17 21:59 1 applic BID LUNA Administration Sodium Bicarbonate 50 meq 05/11/17 20:45 05/12/17 08:33 Sodium Bicarbonate 8.4% - IVPUSH 50 meq Q6H LUNA Administration CBC, BMP 05/12/17 05:25 05/12/17 09:00 27 y/o F with DM, hypertriglycridmia, severe pancreatitis, SIRS, anoxic brain injury s/p aphersis for hypertriglyceredemia Neuro notes reviewed TG around 700s supportive care as per primary. d/w ICU team, endo.
[2017-05-12] MEDS ORDERED: CALCIUM GLUCONATE 10% - 1,000 MG/10 ML VIAL IVPB ONE (11:21)
[2017-05-12] MEDS: FENTANYL INJECTION 500 MCG in DEXTROSE 5%-WATER - 90 ML IJ SCH (11:52)
--- NOTE | 2017-05-12 11:53 | PN ---
Progress Note, Physician History of Present Illness: Pt seen and examined at bedside. She remains in the ICU. Pt remains hypotensive and unstable. Code 99 as called yesterday for an episode of v-tach and received about one minute of chest compressions. - Current Medication List Current Medications: Active Medications Albuterol Sulfate (Ventolin 0.083% Nebulizer Soln -) 1 amp NEB Q6H PRN PRN Reason: SHORT OF BREATH/WHEEZING Calcium Gluconate (Calcium Gluconate 10% -) 2,000 mg IVPB ONCE ONE Stop: 05/12/17 11:22 Chlorhexidine Gluconate (Hibiclens For Decolonization -) 1 applic TP HS LUNA Last Admin: 05/11/17 22:21 Dose: 1 applic Heparin Sodium (Porcine) (Heparin -) 5,000 unit SQ TID LUNA Last Admin: 05/12/17 05:47 Dose: 5,000 unit Hydrocortisone Sodium Succinate (Solu-Cortef -) 100 mg IVPB Q8H-IV LUNA Last Admin: 05/12/17 10:03 Dose: 100 mg Fentanyl 500 mcg/ Dextrose 100 mls @ 15 mls/hr IJ TITR LUNA PRN Reason: 75 MCG/HR Last Admin: 05/11/17 11:34 Dose: Not Given Midazolam HCl 100 mg/ Sodium (Chloride) 100 mls @ 4 mls/hr IVPB TITR LUNA; 4 MG/ HR PRN Reason: Protocol Last Admin: 05/11/17 13:32 Dose: Not Given Norepinephrine Bitartrate 8, (000 mcg/ Dextrose) 500 mls @ 18.75 mls/hr IV TITR LUNA; 5 MCG/MIN PRN Reason: Protocol Last Admin: 05/12/17 05:22 Dose: 131.25 mls/hr Phenylephrine HCl 20,000 mcg/ (Sodium Chloride) 250 mls @ 75 mls/hr IVPB ASDIR LUNA; 100 MCG/MIN PRN Reason: Protocol Last Admin: 05/12/17 08:32 Dose: 112.5 mls/hr Vasopressin 50 units/ Sodium (Chloride) 100 mls @ 4 mls/hr IVPB ASDIR LUNA; 2 UNITS/HR PRN Reason: Protocol Last Admin: 05/12/17 05:24 Dose: 8 mls/hr Doxycycline Hyclate 100 mg/ (Dextrose) 100 mls @ 100 mls/hr IVPB Q12H LUNA Last Admin: 05/12/17 01:49 Dose: 100 mls/hr Epinephrine HCl 1,000 mcg/ (Sodium Chloride) 250 mls @ 180.84 mls/hr IV ASDIR LUNA; 0.1 MCG/KG/MIN PRN Reason: Protocol Last Admin: 05/12/17 05:23 Dose: 150 mls/hr Meropenem 1 gm/ Dextrose 100 mls @ 200 mls/hr IVPB Q12H LUNA Last Admin: 05/12/17 01:49 Dose: 200 mls/hr Insulin Human Regular 100 (units/ Sodium Chloride) 100 mls @ 13.61 mls/hr IVPB TITR LNUA; 0.1 UNITS/KG/HR PRN Reason: Protocol Last Admin: 05/12/17 02:20 Dose: 10 mls/hr Mupirocin (Bactroban Ointment (For Decolonization) -) 1 applic NS BID LUNA Stop: 05/13/17 21:59 Last Admin: 05/12/17 10:07 Dose: 1 applic Sodium Bicarbonate (Sodium Bicarbonate 8.4% -) 50 meq IVPUSH Q6H LUNA Last Admin: 05/12/17 08:33 Dose: 50 meq - Objective Vital Signs: Vital Signs Temperature 99.7 F H 05/12/17 11:00 Pulse Rate 115 H 05/12/17 11:00 Respiratory Rate 35 H 05/12/17 11:08 Blood Pressure 90/37 05/12/17 11:00 O2 Sat by Pulse Oximetry (%) 80 L 05/12/17 09:29 Constitutional: Yes: Obese Cardiovascular: Yes: Tachycardia, S1, S2 Respiratory: Yes: Mechanically Ventilated, Rhonchi Gastrointestinal: Yes: Abdomen, Obese Genitourinary: Yes: Hugo Present Musculoskeletal: Yes: Muscle Weakness Edema: Yes Edema: LUE: 1+, RUE: 1+, LLE: 3+, RLE: 3+ Neurological: Yes: Lethargy Labs: CBC, BMP 05/12/17 05:25 05/12/17 09:00 INR, PTT INR 1.13 (0.82-1.09) 05/12/17 05:25 Fibrinogen 486.0 mg/dL (238-498) D 05/11/17 05:00 - ....Imaging Chest X-ray: Report Reviewed Problem List - Problems (1) Hypertriglyceridemia Code(s): E78.1 - PURE HYPERGLYCERIDEMIA (2) Multiorgan failure Code(s): [id number] - (3) DKA (diabetic ketoacidoses) Code(s): E13.10 - OTH DIABETES MELLITUS WITH KETOACIDOSIS WITHOUT COMA (4) Diabetes mellitus Code(s): E11.9 - TYPE 2 DIABETES MELLITUS WITHOUT COMPLICATIONS (5) Metabolic acidemia Code(s): E87.2 - ACIDOSIS (6) ABBEY (acute kidney injury) Code(s): N17.9 - ACUTE KIDNEY FAILURE, UNSPECIFIED Assessment/Plan Current Medications Generic Name Dose Route Start Last Admin Trade Name Freq PRN Reason Stop Dose Admin Albuterol Sulfate 1 amp 05/08/17 23:55 Ventolin 0.083% Nebulizer Soln - NEB Q6H PRN SHORT OF BREATH/WHEEZING Calcium Gluconate 2,000 mg 05/12/17 11:21 Calcium Gluconate 10% - IVPB 05/12/17 11:22 ONCE ONE Chlorhexidine Gluconate 1 applic 05/08/17 22:00 05/11/17 22:21 Hibiclens For Decolonization - TP 1 applic HS LUNA Administration Heparin Sodium (Porcine) 5,000 unit 05/09/17 06:00 05/12/17 05:47 Heparin - SQ 5,000 unit TID LUNA Administration Hydrocortisone Sodium Succinate 100 mg 05/11/17 02:00 05/12/17 10:03 Solu-Cortef - IVPB 100 mg Q8H-IV LUNA Administration Fentanyl 500 mcg/ Dextrose 100 mls @ 15 mls/hr 05/09/17 10:30 05/11/17 11:34 IJ Not Given TITR LUNA 75 MCG/HR Midazolam HCl 100 mg/ Sodium 100 mls @ 4 mls/hr 05/09/17 12:30 05/11/17 13:32 Chloride IVPB Not Given TITR LUNA Protocol 4 MG/HR Norepinephrine Bitartrate 8, 500 mls @ 18.75 mls/hr 05/09/17 16:00 05/12/17 05: 22 000 mcg/ Dextrose IV 131.25 mls/hr TITR LUNA Administration Protocol 5 MCG/MIN Phenylephrine HCl 20,000 mcg/ 250 mls @ 75 mls/hr 05/09/17 16:00 05/12/17 08:32 Sodium Chloride IVPB 112.5 mls/hr ASDIR LUNA Administration Protocol 100 MCG/MIN Vasopressin 50 units/ Sodium 100 mls @ 4 mls/hr 05/09/17 16:00 05/12/17 05:24 Chloride IVPB 8 mls/hr ASDIR LUNA Administration Protocol 2 UNITS/HR Doxycycline Hyclate 100 mg/ 100 mls @ 100 mls/hr 05/10/17 02:00 05/12/17 01:49 Dextrose IVPB 100 mls/hr Q12H LUNA Administration Epinephrine HCl 1,000 mcg/ 250 mls @ 180.84 mls/hr 05/10/17 00:53 05/12/17 05: 23 Sodium Chloride IV 150 mls/hr ASDIR LUNA Administration Protocol 0.1 MCG/KG/MIN Meropenem 1 gm/ Dextrose 100 mls @ 200 mls/hr 05/10/17 14:00 05/12/17 01:49 IVPB 200 mls/hr Q12H LUNA Administration Insulin Human Regular 100 100 mls @ 13.61 mls/hr 05/10/17 21:43 05/12/17 02:20 units/ Sodium Chloride IVPB 10 mls/hr TITR LUNA Administration Protocol 0.1 UNITS/KG/HR Mupirocin 1 applic 05/08/17 22:00 05/12/17 10:07 Bactroban Ointment (For Decolonization) - NS 05/13/17 21:59 1 applic BID LUNA Administration Sodium Bicarbonate 50 meq 05/11/17 20:45 05/12/17 08:33 Sodium Bicarbonate 8.4% - IVPUSH 50 meq Q6H LUNA Administration Impression 1. ABBEY 2. pancreatities 3. ARDS 4. shock 5. acute respiratory failure 6. DKA 7. hypotension 8. hypocalcemia 9. hypertriglyceridemia 10. multi-organ system failure 11. hypomagnesemia Plan - renal function is worsening - blood pressure remains low despite pressors - neuro input appreciated, second opinion - pt has multi-organ system failure - pt appears unstable for dialysis - care discussed with family and her brother who is the HCP - pt had symptoms since she was in [place] about 2 weeks ago and spent a week in the hospital there. Family were unable to get any bloodwork from that hospitalization and are unsure if any was done as the hospital did not have power. Pt had abdominal pain since Wednesday of last week and refused to come to the hospital. She eventually went to an outside hospital on Wednesday. She checked out of that hospital because the family says she was waiting too long before being treated and because they saw bedbugs on the bed sheets. At that point the pt was brought to [facility]. Her disease process has likely been going on for at least several weeks. - calcium is improving - discussed with ICU team - cont with bicarb - prognosis poor Dr Peace
--- NOTE | 2017-05-12 12:22 | PN ---
Teaching Attending Note Name of Resident: Jose Aleman ATTENDING PHYSICIAN STATEMENT I saw and evaluated the patient. I reviewed the resident's note and discussed the case with the resident. I agree with the resident's findings and plan as documented. SUBJECTIVE:intubated OBJECTIVE: Last Vital Signs Temp Pulse Resp BP Pulse Ox 99.7 F H 115 H 35 H 90/37 80 L 05/12/17 11:00 05/12/17 11:00 05/12/17 11:08 05/12/17 11:00 05/12/17 09:29 Intake & Output 05/09/17 05/10/17 05/11/17 05/12/17 23:59 23:59 23:59 23:59 Intake Total 47329 25499 73806 6194 Output Total 780 195 810 200 Balance 76348 64297 43619 5994 Weight 265 lb 12.8 oz 300 lb 1.6 oz 328 lb 14.4 oz 356 lb 7 oz General intubated CV S1 S2 + lungs coarse diffuse breath sounds ABdomen firm, NT obese Neuo pupils fixed and dilated, no gag reflex. does not withdraw to pain ASSESSMENT AND PLAN: 27 y/o F with PMH Asthma , who presented with Abd pain , and was found to have DKA, acute pancreatitis and severe hypertricglyceredemia. 1- Hypertriglyceredemia induced acute pancreatitis- s/p Apheresis 05/09. TG now 760. high concern for necrotizing pancreatitis however too unstable for CT scan. on insulin ggt. 2. Shock- likely neurogenic vs septic. no source identified. Tm 101.4 on 4 pressors. continues to have low BP. decreasing UOP. on empiric abx. Meropenem and doxycyline (possible leptospirosis as was drinking contaminated water in [place]) . no signs of improvement. now with signs of shock liver and persistently worsening renal fx. UOP is starting to decrease 3. Suspected anoxic brain injury- has been off sedation for >48H and no signs of brain stem reflexes. apnea test attempted yesterday however too unstable to compete test. 2nd opinion of neurologist as per request of family. 4. AG metabolic acidosis- initially due to DKA however now in shock. pH 6.99 on bicarb Q6H. no improvement. renal pn board 5. Vfib- episode of Vtach last night with ROSC <1min. several bursts of SVT overnight and Vfib this AM s/p shock x1 with conversion to NSR. 6. Hypocalcemia- Ca 6.3. on calcium ggt 7. Acute respiratory failure- possible ARDS. on full vent support. not candidate for weaning 8. Full code. poor overall prognosis. family meeting today to discuss goals of care. palliative care on board The care of this patient involved high complexity decision making to prevent further life threatening deterioration of the patient's condition and/or to evaluate & treat vital organ system(s) failure or risk of failure. 50 mins
[2017-05-12 12:35] LABS: CREATININE 7.3 mg/dL (0.55-1.02)
[2017-05-12 12:40] LABS: ANION GAP 19 (8-16); CO2 10 mmol/L (21-32)
[2017-05-12 12:57] LABS: CALCIUM 6.4 mg/dL (8.5-10.1)
[2017-05-12 12:58] LABS: GLUCOSE,RANDOM 317 mg/dL (74-106)
[2017-05-12] MEDS ORDERED: EPINEPHrine/PF 1 MG/1 ML (1:1,000) AMPULE ONE ×2 (13:00→19:35)
[2017-05-12] MEDS: MIDAZOLAM 100 MG in SODIUM CHLORIDE 100 ML IVPB SCH (13:18)
--- NOTE | 2017-05-12 13:59 | PN ---
Physical Exam: SUBJECTIVE: Patient seen and examined, mechanically ventilated on AC; off sedation, on four pressers. Overnight events include runs of ventricular fibrillation. Due to severe liver dysfunction, amiodarone not warranted. She was shock with 120J, converted to sinus tachycardia. This happened again this morning after examining the patient. She was again shocked and converted to sinus tach. OBJECTIVE: Vital Signs Period Temp Pulse Resp BP Sys/Pena Pulse Ox Last 24 Hr 99.6 F-101.4 F 115-220 35-35 79-120/37-75 80-88 GENERAL: intubated, non responsive LUNGS: decreased breath sounds, scattered rhonchi, course breath sounds HEART: sinus tachy, RR no murmurs ABDOMEN: obese, distended, -BS EXTREMITIES: 2+ pulses, warm, well-perfused, BL UE and LE edema NEUROLOGICAL: unresponsive; blown pupils, no pupils reflexes, no response to tactile or painful stimuli. NO corneal reflex; Laboratory Results - last 24 hr 05/09/17 05/10/17 05/10/17 20:00 02:00 14:31 WBC RBC Hgb Hct MCV MCH MCHC RDW Plt Count MPV Neutrophils % Lymphocytes % Monocytes % Eosinophils % Basophils % PT with INR INR ABG pH ABG pCO2 at Pt Temp ABG pO2 at Pt Temp ABG HCO3 ABG O2 Sat (Measured) ABG O2 Content ABG Base Excess O2 Delivery Device Vent Mode Vent Rate Mechanical Rate PEEP Pressure Support Vent Sodium Potassium Chloride Carbon Dioxide Anion Gap BUN Creatinine Creat Clearance w eGFR Random Glucose Calcium 3.0 Ionized Calcium < 3.0 L < 3.0 L Magnesium Total Bilirubin AST ALT Alkaline Phosphatase Total Protein Albumin Triglycerides 05/11/17 05/11/17 05/11/17 15:20 17:00 18:00 WBC RBC Hgb Hct MCV MCH MCHC RDW Plt Count MPV Neutrophils % Lymphocytes % Monocytes % Eosinophils % Basophils % PT with INR INR ABG pH ABG pCO2 at Pt Temp ABG pO2 at Pt Temp ABG HCO3 ABG O2 Sat (Measured) ABG O2 Content ABG Base Excess O2 Delivery Device Vent Mode Vent Rate Mechanical Rate PEEP Pressure Support Vent Sodium 128 L 128 L Potassium 5.4 H 5.7 H Chloride 101 99 Carbon Dioxide 9 L 9 L Anion Gap 18 H 20 H BUN 23 H 25 H Creatinine 6.3 H 6.4 H Creat Clearance w eGFR Random Glucose 273 H 265 H Calcium 5.8 L* 5.6 L* Ionized Calcium Cancelled Magnesium Total Bilirubin AST ALT Alkaline Phosphatase Total Protein Albumin Triglycerides 05/11/17 05/11/17 05/11/17 18:00 18:50 18:50 WBC RBC Hgb Hct MCV MCH MCHC RDW Plt Count MPV Neutrophils % Lymphocytes % Monocytes % Eosinophils % Basophils % PT with INR INR ABG pH ABG pCO2 at Pt Temp ABG pO2 at Pt Temp ABG HCO3 ABG O2 Sat (Measured) ABG O2 Content ABG Base Excess O2 Delivery Device Vent Mode Vent Rate Mechanical Rate PEEP Pressure Support Vent Sodium 127 L 126 L Potassium 5.7 H 5.5 H Chloride 99 100 Carbon Dioxide 9 L 11 L D Anion Gap 19 H 15 BUN 24 H 24 H Creatinine 6.4 H 6.5 H Creat Clearance w eGFR 7.70 Random Glucose 278 H 263 H 272 H Calcium 5.8 L* 5.9 L* Ionized Calcium Magnesium 2.1 Total Bilirubin 1.1 H D AST 5526 H ALT 1574 H D Alkaline Phosphatase 105 D Total Protein 4.0 L Albumin 1.8 L D Triglycerides 05/11/17 05/11/17 05/11/17 21:15 23:00 23:15 WBC RBC Hgb Hct MCV MCH MCHC RDW Plt Count MPV Neutrophils % Lymphocytes % Monocytes % Eosinophils % Basophils % PT with INR INR ABG pH ABG pCO2 at Pt Temp ABG pO2 at Pt Temp ABG HCO3 ABG O2 Sat (Measured) ABG O2 Content ABG Base Excess O2 Delivery Device Vent Mode Vent Rate Mechanical Rate PEEP Pressure Support Vent Sodium 127 L 127 L Potassium 5.5 H 5.6 H Chloride 99 98 Carbon Dioxide 10 L 9 L Anion Gap 18 H 20 H BUN 25 H 26 H Creatinine 6.5 H 6.6 H Creat Clearance w eGFR Random Glucose 281 H 291 H Calcium 5.8 L* 5.8 L* Ionized Calcium Cancelled Magnesium Total Bilirubin AST ALT Alkaline Phosphatase Total Protein Albumin Triglycerides 05/12/17 05/12/17 05/12/17 01:00 03:00 05:25 WBC RBC Hgb Hct MCV MCH MCHC RDW Plt Count MPV Neutrophils % Lymphocytes % Monocytes % Eosinophils % Basophils % PT with INR INR ABG pH ABG pCO2 at Pt Temp ABG pO2 at Pt Temp ABG HCO3 ABG O2 Sat (Measured) ABG O2 Content ABG Base Excess O2 Delivery Device Vent Mode Vent Rate Mechanical Rate PEEP Pressure Support Vent Sodium 127 L 127 L 126 L Potassium 5.5 H 5.3 H 5.4 H Chloride 97 L 97 L 96 L Carbon Dioxide 10 L 10 L 10 L Anion Gap 20 H 20 H 20 H BUN 26 H 26 H 28 H Creatinine 6.6 H 6.8 H 6.9 H Creat Clearance w eGFR 7.06 Random Glucose 312 H* 320 H* 316 H* Calcium 5.9 L* 6.0 L* 6.3 L* Ionized Calcium Magnesium Total Bilirubin 1.7 H D AST 2960 H ALT 1223 H D Alkaline Phosphatase 126 H Total Protein 4.1 L Albumin 1.7 L Triglycerides 790 H 05/12/17 05/12/17 05/12/17 05:25 05:25 08:52 WBC 14.1 H RBC 3.55 L D Hgb 9.1 L D Hct 28.4 L D MCV 79.9 L MCH 25.6 L MCHC 32.0 RDW 16.5 H Plt Count 188 MPV 9.9 Neutrophils % 83.4 H D Lymphocytes % 10.2 D Monocytes % 5.0 Eosinophils % 0.1 Basophils % 1.3 D PT with INR 12.80 H INR 1.13 ABG pH 6.99 L* ABG pCO2 at Pt Temp 41.8 ABG pO2 at Pt Temp 61.0 L ABG HCO3 9.7 L* ABG O2 Sat (Measured) 85.5 L ABG O2 Content 10.5 L ABG Base Excess -20.4 L* O2 Delivery Device Vent Vent Mode Ac Vent Rate 35 Mechanical Rate Y PEEP 12.0 Pressure Support Vent 350 Sodium Potassium Chloride Carbon Dioxide Anion Gap BUN Creatinine Creat Clearance w eGFR Random Glucose Calcium Ionized Calcium Magnesium Total Bilirubin AST ALT Alkaline Phosphatase Total Protein Albumin Triglycerides 05/12/17 05/12/17 09:00 11:00 WBC RBC Hgb Hct MCV MCH MCHC RDW Plt Count MPV Neutrophils % Lymphocytes % Monocytes % Eosinophils % Basophils % PT with INR INR ABG pH ABG pCO2 at Pt Temp ABG pO2 at Pt Temp ABG HCO3 ABG O2 Sat (Measured) ABG O2 Content ABG Base Excess O2 Delivery Device Vent Mode Vent Rate Mechanical Rate PEEP Pressure Support Vent Sodium 125 L 125 L Potassium 5.4 H 5.5 H Chloride 96 L 96 L Carbon Dioxide 11 L 10 L Anion Gap 18 H 19 H BUN 25 H 28 H Creatinine 7.2 H 7.3 H Creat Clearance w eGFR Random Glucose 330 H* 317 H* Calcium 6.3 L* 6.4 L* Ionized Calcium Magnesium Total Bilirubin AST ALT Alkaline Phosphatase Total Protein Albumin Triglycerides Active Medications Generic Name Dose Route Start Last Admin Trade Name Freq PRN Reason Stop Dose Admin Albuterol Sulfate 1 amp 05/08/17 23:55 Ventolin 0.083% Nebulizer Soln - NEB Q6H PRN SHORT OF BREATH/WHEEZING Chlorhexidine Gluconate 1 applic 05/08/17 22:00 05/11/17 22:21 Hibiclens For Decolonization - TP 1 applic HS LUNA Administration Heparin Sodium (Porcine) 5,000 unit 05/09/17 06:00 05/12/17 13:55 Heparin - SQ 5,000 unit TID LUNA Administration Hydrocortisone Sodium Succinate 100 mg 05/11/17 02:00 05/12/17 10:03 Solu-Cortef - IVPB 100 mg Q8H-IV LUNA Administration Fentanyl 500 mcg/ Dextrose 100 mls @ 15 mls/hr 05/09/17 10:30 05/12/17 11:52 IJ Not Given TITR LUNA 75 MCG/HR Midazolam HCl 100 mg/ Sodium 100 mls @ 4 mls/hr 05/09/17 12:30 05/12/17 13:18 Chloride IVPB Not Given TITR LUNA Protocol 4 MG/HR Norepinephrine Bitartrate 8, 500 mls @ 18.75 mls/hr 05/09/17 16:00 05/12/17 13: 29 000 mcg/ Dextrose IV 131.25 mls/hr TITR LUNA Administration Protocol 5 MCG/MIN Phenylephrine HCl 20,000 mcg/ 250 mls @ 75 mls/hr 05/09/17 16:00 05/12/17 13:17 Sodium Chloride IVPB 112.5 mls/hr ASDIR LUNA Administration Protocol 100 MCG/MIN Vasopressin 50 units/ Sodium 100 mls @ 4 mls/hr 05/09/17 16:00 05/12/17 05:24 Chloride IVPB 8 mls/hr ASDIR LUNA Administration Protocol 2 UNITS/HR Doxycycline Hyclate 100 mg/ 100 mls @ 100 mls/hr 05/10/17 02:00 05/12/17 13:57 Dextrose IVPB 100 mls/hr Q12H LUNA Administration Epinephrine HCl 1,000 mcg/ 250 mls @ 180.84 mls/hr 05/10/17 00:53 05/12/17 13: 16 Sodium Chloride IV 180.84 mls/hr ASDIR LUNA Administration Protocol 0.1 MCG/KG/MIN Meropenem 1 gm/ Dextrose 100 mls @ 200 mls/hr 05/10/17 14:00 05/12/17 13:56 IVPB 200 mls/hr Q12H LUNA Administration Insulin Human Regular 100 100 mls @ 13.61 mls/hr 05/10/17 21:43 05/12/17 13:31 units/ Sodium Chloride IVPB 10 mls/hr TITR LUNA Administration Protocol 0.1 UNITS/KG/HR Mupirocin 1 applic 05/08/17 22:00 05/12/17 10:07 Bactroban Ointment (For Decolonization) - NS 05/13/17 21:59 1 applic BID LUAN Administration Sodium Bicarbonate 50 meq 05/11/17 20:45 05/12/17 08:33 Sodium Bicarbonate 8.4% - IVPUSH 50 meq Q6H LUNA Administration ASSESSMENT/PLAN: This is a 27 year old female with severe pancreatitis secondary to hypertyglycerlidemia, who developed ARDS with anoxic brain injury and subsequent acute hypoxic respiratory failure now intubated and mechanically ventilated on four pressers with multiple organ failure. #anoxic brain injury progressing to brain secondary to acute respiratory failure due to ARDS -intubated, off sedation and mechanically ventilated AC mode -apnea test unable to perform due to hemodynamic instability -neuro eval for brain ; second opinion from neuro was the same -palliative care for [facility] #severe pancreatitis secondary to severe hypertryglyceridemia with acute DKA secondary to severe pancreatitis -s/p apharesis; -tryglycerides still elevated; unable to cont w apharesis due to instability -cont insulin drip to assist with lipids with D5 to prevent hypoglycemia; BGM q2h; keep glucose 120-180 -heme/onc ; endocrine appreciated #severe hypocalemia secondary to severe pancreatitis; improved -cont calcium gg d/c'd ; give calcium gluconate 2mg IVP prn -replete mg prn to assist with Ca absorption -f/u bmp #acute renal failure with severe metabolic acidosis most likely secondary to hypovolemic shock secondary to severe pancreatitis acute tubular necrosis -PH 6.9 again today even after bicarb given q6h -cont bicarb for now -unstable for hemodialysis -renal consult appreciated FEN: Fluids: cont IVF Electrolytes: f/u ca, bmp q2h Diet: hold feeds VTE: heparin sq Disposition: prognosis very poor; palliative care consulted ; meeting with family to discuss GOC; gino is wating for f=grandfather to arrive form [place] for further decision Problem List - Problems (1) Hypertriglyceridemia Code(s): E78.1 - PURE HYPERGLYCERIDEMIA (2) Multiorgan failure Code(s): UWA1415 - (3) Pancreatitis Code(s): K85.90 - ACUTE PANCREATITIS WITHOUT NECROSIS OR INFECTION, UNSP Qualifiers: Chronicity: acute Pancreatitis type: other Acute pancreatitis complication: unspecified Qualified Code(s): K85.80 - Other acute pancreatitis without necrosis or infection; K85.80 - Other acute pancreatitis without necrosis or infection (4) Cerebral anoxic injury Code(s): G93.1 - ANOXIC BRAIN DAMAGE, NOT ELSEWHERE CLASSIFIED (5) DKA (diabetic ketoacidoses) Code(s): E13.10 - OTH DIABETES MELLITUS WITH KETOACIDOSIS WITHOUT COMA (6) Hemodynamic instability Code(s): R09.89 - OTH SYMPTOMS AND SIGNS INVOLVING THE CIRC AND RESP SYSTEMS (7) Metabolic acidemia Code(s): E87.2 - ACIDOSIS Visit type - Emergency Visit Emergency Visit: Yes ED Registration Date: 05/08/17 Care time: The patient presented to the Emergency Department on the above date and was hospitalized for further evaluation of their emergent condition. - New Patient This patient is new to me today: No - Critical Care Critical Care patient: Yes Total Critical Care Time (in minutes): 35 Critical Care Statement: The care of this patient involved high complexity decision making to prevent further life threatening deterioration of the patient 's condition and/or to evaluate & treat vital organ system(s) failure or risk of failure.
--- NOTE | 2017-05-12 14:42 | PN ---
Progress Note, Physician History of Present Illness: events noted still unresponsive - Current Medication List Current Medications: Active Medications Albuterol Sulfate (Ventolin 0.083% Nebulizer Soln -) 1 amp NEB Q6H PRN PRN Reason: SHORT OF BREATH/WHEEZING Chlorhexidine Gluconate (Hibiclens For Decolonization -) 1 applic TP HS LUNA Last Admin: 05/11/17 22:21 Dose: 1 applic Heparin Sodium (Porcine) (Heparin -) 5,000 unit SQ TID LUNA Last Admin: 05/12/17 13:55 Dose: 5,000 unit Hydrocortisone Sodium Succinate (Solu-Cortef -) 100 mg IVPB Q8H-IV LUNA Last Admin: 05/12/17 10:03 Dose: 100 mg Fentanyl 500 mcg/ Dextrose 100 mls @ 15 mls/hr IJ TITR LUNA PRN Reason: 75 MCG/HR Last Admin: 05/12/17 11:52 Dose: Not Given Midazolam HCl 100 mg/ Sodium (Chloride) 100 mls @ 4 mls/hr IVPB TITR LUNA; 4 MG/ HR PRN Reason: Protocol Last Admin: 05/12/17 13:18 Dose: Not Given Norepinephrine Bitartrate 8, (000 mcg/ Dextrose) 500 mls @ 18.75 mls/hr IV TITR LUNA; 5 MCG/MIN PRN Reason: Protocol Last Admin: 05/12/17 13:29 Dose: 131.25 mls/hr Phenylephrine HCl 20,000 mcg/ (Sodium Chloride) 250 mls @ 75 mls/hr IVPB ASDIR LUNA; 100 MCG/MIN PRN Reason: Protocol Last Admin: 05/12/17 13:17 Dose: 112.5 mls/hr Vasopressin 50 units/ Sodium (Chloride) 100 mls @ 4 mls/hr IVPB ASDIR LUNA; 2 UNITS/HR PRN Reason: Protocol Last Admin: 05/12/17 05:24 Dose: 8 mls/hr Doxycycline Hyclate 100 mg/ (Dextrose) 100 mls @ 100 mls/hr IVPB Q12H LUNA Last Admin: 05/12/17 13:57 Dose: 100 mls/hr Epinephrine HCl 1,000 mcg/ (Sodium Chloride) 250 mls @ 180.84 mls/hr IV ASDIR LUNA; 0.1 MCG/KG/MIN PRN Reason: Protocol Last Admin: 05/12/17 13:16 Dose: 180.84 mls/hr Meropenem 1 gm/ Dextrose 100 mls @ 200 mls/hr IVPB Q12H LUNA Last Admin: 05/12/17 13:56 Dose: 200 mls/hr Insulin Human Regular 100 (units/ Sodium Chloride) 100 mls @ 13.61 mls/hr IVPB TITR LUNA; 0.1 UNITS/KG/HR PRN Reason: Protocol Last Admin: 05/12/17 13:31 Dose: 10 mls/hr Mupirocin (Bactroban Ointment (For Decolonization) -) 1 applic NS BID LUNA Stop: 05/13/17 21:59 Last Admin: 05/12/17 10:07 Dose: 1 applic Sodium Bicarbonate (Sodium Bicarbonate 8.4% -) 50 meq IVPUSH Q6H LUNA Last Admin: 05/12/17 08:33 Dose: 50 meq - Objective Vital Signs: Vital Signs Temperature 99.7 F H 05/12/17 11:00 Pulse Rate 117 H 05/12/17 13:29 Respiratory Rate 35 H 05/12/17 13:26 Blood Pressure 97/47 05/12/17 13:29 O2 Sat by Pulse Oximetry (%) 80 L 05/12/17 09:29 Constitutional: Yes: No Distress, Calm Cardiovascular: Yes: Regular Rate and Rhythm Respiratory: Yes: Intubated, Mechanically Ventilated Gastrointestinal: Yes: Normal Bowel Sounds, Soft Musculoskeletal: Yes: WNL Extremities: Yes: WNL Neurological: Yes: Other Psychiatric: Yes: Other Labs: CBC, BMP 05/12/17 05:25 05/12/17 11:00 INR, PTT INR 1.13 (0.82-1.09) 05/12/17 05:25 Fibrinogen 486.0 mg/dL (238-498) D 05/11/17 05:00 Assessment/Plan Problem List - Problems (1) Pancreatitis Code(s): K85.90 - ACUTE PANCREATITIS WITHOUT NECROSIS OR INFECTION, UNSP (2) DKA (diabetic ketoacidoses) Code(s): E13.10 - OTH DIABETES MELLITUS WITH KETOACIDOSIS WITHOUT COMA Acute Respiratory Failure Suspected Anoxic Brain injury progressing to Brain . Morbid obesity DKA HTN Pancreatitis likley 2/2 hyperlipidemia/triglyceridemia ARDS ARF plan continue supportive care vent support continue as per icu pupils dilated and fixed prognosis poor rest as per icu await for final plan to be made cc time 40 min
--- NOTE | 2017-05-12 15:37 | PN ---
Progress Note (short form) - Note Progress Note: Events noted unresponsive on ventilatory support Vital Signs Period Temp Pulse Resp BP Sys/Pena Pulse Ox Last 24 Hr 99.3 F-101.4 F 115-220 35-35 79-120/37-75 80-88 PE: unresponsive, intubated HEENT: dilated pupils Neck: Supple Lungs: coarse breath sounds Abd: Bening CVS: S1S2 EXt: +edema CBCD WBC 14.1 K/mm3 (4.0-10.0) H 05/12/17 05:25 RBC 3.55 M/mm3 (3.60-5.2) L D 05/12/17 05:25 Hgb 9.1 GM/dL (10.7-15.3) L D 05/12/17 05:25 Hct 28.4 % (32.4-45.2) L D 05/12/17 05:25 MCV 79.9 fl (80-96) L 05/12/17 05:25 MCHC 32.0 g/dl (32.0-36.0) 05/12/17 05:25 RDW 16.5 % (11.6-15.6) H 05/12/17 05:25 Plt Count 188 K/MM3 (134-434) 05/12/17 05:25 MPV 9.9 fl (7.5-11.1) 05/12/17 05:25 CMP Sodium 125 mmol/L (136-145) L 05/12/17 11:00 Potassium 5.5 mmol/L (3.5-5.1) H 05/12/17 11:00 Chloride 96 mmol/L (98-107) L 05/12/17 11:00 Carbon Dioxide 10 mmol/L (21-32) L 05/12/17 11:00 Anion Gap 19 (8-16) H 05/12/17 11:00 BUN 28 mg/dL (7-18) H 05/12/17 11:00 Creatinine 7.3 mg/dL (0.55-1.02) H 05/12/17 11:00 Creat Clearance w eGFR 7.06 (>60) 05/12/17 05:25 Calcium 6.4 mg/dL (8.5-10.1) L* 05/12/17 11:00 Total Bilirubin 1.7 mg/dL (0.2-1.0) H D 05/12/17 05:25 AST 2960 U/L (15-37) H 05/12/17 05:25 ALT 1223 U/L (12-78) H D 05/12/17 05:25 Alkaline Phosphatase 126 U/L (45-117) H 05/12/17 05:25 Total Protein 4.1 g/dl (6.4-8.2) L 05/12/17 05:25 Albumin 1.7 g/dl (3.4-5.0) L 05/12/17 05:25 AP: Anoxic brain injury: Neurology consult for second opinion noted Respiratory failure DKA: resolved Acute Pancreatitis Hypertriglyceridemia ABBEY with worsening acidosis Electrolyte Imbalance Elevated LFTs On Ventilatory and pressure support S/P Apheresis Continue Insulin drip for now as this will also help to lower Triglyceride levels BGM Q two hours Hrs. Rpt BGM in an hour when Insulin dose is changed Adjust Insulin drip as necessary to maintain blood sugar 120 to 180 if possible. Discussed with housestaff and RN Add D5 or D10 as necessary to maintain blood sugar >120 if necessary Electrolyte replacement as necessary Prognosis grave
--- NOTE | 2017-05-12 16:35 | PN ---
Teaching Attending Note Name of Resident: Fatmata Pina ATTENDING PHYSICIAN STATEMENT I saw and evaluated the patient. I reviewed the resident's note and discussed the case with the resident. I agree with the resident's findings and plan as documented. SUBJECTIVE: Patient seen and examined in the unit. Remains unresponsive. VT overnight requiring defibrillation. No improvement in overall condition. Refractory shock. Was not made DNR/DNI. Intake & Output 05/09/17 05/10/17 05/11/17 05/12/17 23:59 23:59 23:59 23:59 Intake Total 32821 10930 91705 6944 Output Total 780 195 810 205 Balance 43930 81277 51829 6739 Weight 265 lb 12.8 oz 300 lb 1.6 oz 328 lb 14.4 oz 356 lb 7 oz Last Vital Signs Temp Pulse Resp BP Pulse Ox 99.3 F 119 H 35 H 100/42 84 L 05/12/17 15:00 05/12/17 16:00 05/12/17 16:00 05/12/17 16:00 05/12/17 14:56 Active Medications Albuterol Sulfate (Ventolin 0.083% Nebulizer Soln -) 1 amp NEB Q6H PRN PRN Reason: SHORT OF BREATH/WHEEZING Chlorhexidine Gluconate (Hibiclens For Decolonization -) 1 applic TP HS LUNA Last Admin: 05/11/17 22:21 Dose: 1 applic Heparin Sodium (Porcine) (Heparin -) 5,000 unit SQ TID LUNA Last Admin: 05/12/17 13:55 Dose: 5,000 unit Hydrocortisone Sodium Succinate (Solu-Cortef -) 100 mg IVPB Q8H-IV LUNA Last Admin: 05/12/17 10:03 Dose: 100 mg Fentanyl 500 mcg/ Dextrose 100 mls @ 15 mls/hr IJ TITR LUNA PRN Reason: 75 MCG/HR Last Admin: 05/12/17 11:52 Dose: Not Given Midazolam HCl 100 mg/ Sodium (Chloride) 100 mls @ 4 mls/hr IVPB TITR LUNA; 4 MG/ HR PRN Reason: Protocol Last Admin: 05/12/17 13:18 Dose: Not Given Norepinephrine Bitartrate 8, (000 mcg/ Dextrose) 500 mls @ 18.75 mls/hr IV TITR LUNA; 5 MCG/MIN PRN Reason: Protocol Last Admin: 05/12/17 13:29 Dose: 131.25 mls/hr Phenylephrine HCl 20,000 mcg/ (Sodium Chloride) 250 mls @ 75 mls/hr IVPB ASDIR LUNA; 100 MCG/MIN PRN Reason: Protocol Last Admin: 05/12/17 13:17 Dose: 112.5 mls/hr Vasopressin 50 units/ Sodium (Chloride) 100 mls @ 4 mls/hr IVPB ASDIR LUNA; 2 UNITS/HR PRN Reason: Protocol Last Admin: 05/12/17 05:24 Dose: 8 mls/hr Doxycycline Hyclate 100 mg/ (Dextrose) 100 mls @ 100 mls/hr IVPB Q12H LUNA Last Admin: 05/12/17 13:57 Dose: 100 mls/hr Epinephrine HCl 1,000 mcg/ (Sodium Chloride) 250 mls @ 180.84 mls/hr IV ASDIR LUNA; 0.1 MCG/KG/MIN PRN Reason: Protocol Last Admin: 05/12/17 13:16 Dose: 180.84 mls/hr Meropenem 1 gm/ Dextrose 100 mls @ 200 mls/hr IVPB Q12H LUNA Last Admin: 05/12/17 13:56 Dose: 200 mls/hr Insulin Human Regular 100 (units/ Sodium Chloride) 100 mls @ 13.61 mls/hr IVPB TITR LUNA; 0.1 UNITS/KG/HR PRN Reason: Protocol Last Titration: 05/12/17 15:35 Dose: 0.08 units/kg/hr Mupirocin (Bactroban Ointment (For Decolonization) -) 1 applic NS BID LUNA Stop: 05/13/17 21:59 Last Admin: 05/12/17 10:07 Dose: 1 applic Sodium Bicarbonate (Sodium Bicarbonate 8.4% -) 50 meq IVPUSH Q6H LUNA Last Admin: 05/12/17 14:30 Dose: 50 meq Gen: Non-responsive, AC Mode of vent. HEENT: Pupils dilated and unreactive, R IJ Catheter PULM: diffuse crackles, no wheezes, AC Mode of mechanical ventilation CV: tachy, regular, no m/r/g appreciated ABD: obese, distended, hypoactive BS EXT: trace edema Neuro: non-responsive Laboratory Results - last 24 hr 05/09/17 05/10/17 05/10/17 20:00 02:00 14:31 WBC RBC Hgb Hct MCV MCH MCHC RDW Plt Count MPV Neutrophils % Lymphocytes % Monocytes % Eosinophils % Basophils % PT with INR INR ABG pH ABG pCO2 at Pt Temp ABG pO2 at Pt Temp ABG HCO3 ABG O2 Sat (Measured) ABG O2 Content ABG Base Excess O2 Delivery Device Vent Mode Vent Rate Mechanical Rate PEEP Pressure Support Vent Sodium Potassium Chloride Carbon Dioxide Anion Gap BUN Creatinine Creat Clearance w eGFR Random Glucose Calcium 3.0 Ionized Calcium < 3.0 L < 3.0 L Magnesium Total Bilirubin AST ALT Alkaline Phosphatase Total Protein Albumin Triglycerides PTH Intact 242 H PTH Intact Intraop 0 m 05/10/17 05/11/17 05/11/17 14:31 11:45 13:15 WBC RBC Hgb Hct MCV MCH MCHC RDW Plt Count MPV Neutrophils % Lymphocytes % Monocytes % Eosinophils % Basophils % PT with INR INR ABG pH ABG pCO2 at Pt Temp ABG pO2 at Pt Temp ABG HCO3 ABG O2 Sat (Measured) ABG O2 Content ABG Base Excess O2 Delivery Device Vent Mode Vent Rate Mechanical Rate PEEP Pressure Support Vent Sodium Potassium Chloride Carbon Dioxide Anion Gap BUN Creatinine Creat Clearance w eGFR Random Glucose Calcium Ionized Calcium 3.3 L 3.4 L Magnesium Total Bilirubin AST ALT Alkaline Phosphatase Total Protein Albumin Triglycerides PTH Intact 222 H PTH Intact Intraop 0 m 05/11/17 05/11/17 05/11/17 15:20 17:00 18:00 WBC RBC Hgb Hct MCV MCH MCHC RDW Plt Count MPV Neutrophils % Lymphocytes % Monocytes % Eosinophils % Basophils % PT with INR INR ABG pH ABG pCO2 at Pt Temp ABG pO2 at Pt Temp ABG HCO3 ABG O2 Sat (Measured) ABG O2 Content ABG Base Excess O2 Delivery Device Vent Mode Vent Rate Mechanical Rate PEEP Pressure Support Vent Sodium 128 L 128 L Potassium 5.4 H 5.7 H Chloride 101 99 Carbon Dioxide 9 L 9 L Anion Gap 18 H 20 H BUN 23 H 25 H Creatinine 6.3 H 6.4 H Creat Clearance w eGFR Random Glucose 273 H 265 H Calcium 5.8 L* 5.6 L* Ionized Calcium Cancelled Magnesium Total Bilirubin AST ALT Alkaline Phosphatase Total Protein Albumin Triglycerides PTH Intact PTH Intact Intraop 0 m 05/11/17 05/11/17 05/11/17 18:00 18:50 18:50 WBC RBC Hgb Hct MCV MCH MCHC RDW Plt Count MPV Neutrophils % Lymphocytes % Monocytes % Eosinophils % Basophils % PT with INR INR ABG pH ABG pCO2 at Pt Temp ABG pO2 at Pt Temp ABG HCO3 ABG O2 Sat (Measured) ABG O2 Content ABG Base Excess O2 Delivery Device Vent Mode Vent Rate Mechanical Rate PEEP Pressure Support Vent Sodium 127 L 126 L Potassium 5.7 H 5.5 H Chloride 99 100 Carbon Dioxide 9 L 11 L D Anion Gap 19 H 15 BUN 24 H 24 H Creatinine 6.4 H 6.5 H Creat Clearance w eGFR 7.70 Random Glucose 278 H 263 H 272 H Calcium 5.8 L* 5.9 L* Ionized Calcium Magnesium 2.1 Total Bilirubin 1.1 H D AST 5526 H ALT 1574 H D Alkaline Phosphatase 105 D Total Protein 4.0 L Albumin 1.8 L D Triglycerides PTH Intact PTH Intact Intraop 0 m 05/11/17 05/11/17 05/11/17 21:15 23:00 23:15 WBC RBC Hgb Hct MCV MCH MCHC RDW Plt Count MPV Neutrophils % Lymphocytes % Monocytes % Eosinophils % Basophils % PT with INR INR ABG pH ABG pCO2 at Pt Temp ABG pO2 at Pt Temp ABG HCO3 ABG O2 Sat (Measured) ABG O2 Content ABG Base Excess O2 Delivery Device Vent Mode Vent Rate Mechanical Rate PEEP Pressure Support Vent Sodium 127 L 127 L Potassium 5.5 H 5.6 H Chloride 99 98 Carbon Dioxide 10 L 9 L Anion Gap 18 H 20 H BUN 25 H 26 H Creatinine 6.5 H 6.6 H Creat Clearance w eGFR Random Glucose 281 H 291 H Calcium 5.8 L* 5.8 L* Ionized Calcium Cancelled Magnesium Total Bilirubin AST ALT Alkaline Phosphatase Total Protein Albumin Triglycerides PTH Intact PTH Intact Intraop 0 m 05/12/17 05/12/17 05/12/17 01:00 03:00 05:25 WBC RBC Hgb Hct MCV MCH MCHC RDW Plt Count MPV Neutrophils % Lymphocytes % Monocytes % Eosinophils % Basophils % PT with INR INR ABG pH ABG pCO2 at Pt Temp ABG pO2 at Pt Temp ABG HCO3 ABG O2 Sat (Measured) ABG O2 Content ABG Base Excess O2 Delivery Device Vent Mode Vent Rate Mechanical Rate PEEP Pressure Support Vent Sodium 127 L 127 L 126 L Potassium 5.5 H 5.3 H 5.4 H Chloride 97 L 97 L 96 L Carbon Dioxide 10 L 10 L 10 L Anion Gap 20 H 20 H 20 H BUN 26 H 26 H 28 H Creatinine 6.6 H 6.8 H 6.9 H Creat Clearance w eGFR 7.06 Random Glucose 312 H* 320 H* 316 H* Calcium 5.9 L* 6.0 L* 6.3 L* Ionized Calcium Magnesium Total Bilirubin 1.7 H D AST 2960 H ALT 1223 H D Alkaline Phosphatase 126 H Total Protein 4.1 L Albumin 1.7 L Triglycerides 790 H PTH Intact PTH Intact Intraop 0 m 05/12/17 05/12/17 05/12/17 05:25 05:25 08:52 WBC 14.1 H RBC 3.55 L D Hgb 9.1 L D Hct 28.4 L D MCV 79.9 L MCH 25.6 L MCHC 32.0 RDW 16.5 H Plt Count 188 MPV 9.9 Neutrophils % 83.4 H D Lymphocytes % 10.2 D Monocytes % 5.0 Eosinophils % 0.1 Basophils % 1.3 D PT with INR 12.80 H INR 1.13 ABG pH 6.99 L* ABG pCO2 at Pt Temp 41.8 ABG pO2 at Pt Temp 61.0 L ABG HCO3 9.7 L* ABG O2 Sat (Measured) 85.5 L ABG O2 Content 10.5 L ABG Base Excess -20.4 L* O2 Delivery Device Vent Vent Mode Ac Vent Rate 35 Mechanical Rate Y PEEP 12.0 Pressure Support Vent 350 Sodium Potassium Chloride Carbon Dioxide Anion Gap BUN Creatinine Creat Clearance w eGFR Random Glucose Calcium Ionized Calcium Magnesium Total Bilirubin AST ALT Alkaline Phosphatase Total Protein Albumin Triglycerides PTH Intact PTH Intact Intraop 0 m 05/12/17 05/12/17 09:00 11:00 WBC RBC Hgb Hct MCV MCH MCHC RDW Plt Count MPV Neutrophils % Lymphocytes % Monocytes % Eosinophils % Basophils % PT with INR INR ABG pH ABG pCO2 at Pt Temp ABG pO2 at Pt Temp ABG HCO3 ABG O2 Sat (Measured) ABG O2 Content ABG Base Excess O2 Delivery Device Vent Mode Vent Rate Mechanical Rate PEEP Pressure Support Vent Sodium 125 L 125 L Potassium 5.4 H 5.5 H Chloride 96 L 96 L Carbon Dioxide 11 L 10 L Anion Gap 18 H 19 H BUN 25 H 28 H Creatinine 7.2 H 7.3 H Creat Clearance w eGFR Random Glucose 330 H* 317 H* Calcium 6.3 L* 6.4 L* Ionized Calcium Magnesium Total Bilirubin AST ALT Alkaline Phosphatase Total Protein Albumin Triglycerides PTH Intact PTH Intact Intraop 0 m Problem List - Problems (1) Pancreatitis Code(s): K85.90 - ACUTE PANCREATITIS WITHOUT NECROSIS OR INFECTION, UNSP (2) DKA (diabetic ketoacidoses) Code(s): E13.10 - OTH DIABETES MELLITUS WITH KETOACIDOSIS WITHOUT COMA Assessment/Plan Acute Respiratory Failure Anoxic Brain injury progressing to Brain . Morbid obesity DKA HTN Pancreatitis likley 2/2 hyperlipidemia/triglyceridemia ARDS ARF Unfortunately at this point all effort are considered medically futile AC Mode Strict I&O Continue to monitor off sedation Unstable at this point for effective [employer]EL[employer] and apheresis due to persistent shock state Hold enteral feeds Insulin drip for glycemic control Overall prognosis is grave for meaningful survival, our goal should goal should be for comfort measures if the family is wiling Dr Chen Critical care time spent in reviewing chart, evaluating patient and formulating plan - 40 minutes.
[2017-05-12] MEDS ORDERED: VASOPRESSIN 20 UNITS/ML VIAL IV ONE (19:36)
[2017-05-12] MEDS ORDERED: SODIUM BICARBONATE 8.4% - 50 ML ONE ×2 (20:36→20:47)
[2017-05-12] MEDS ORDERED: SODIUM BICARBONATE 8.4% 50 MEQ/50 ML VIAL IVPUSH ONE (20:36)
[2017-05-12] MEDS ORDERED: CALCIUM GLUCONATE 10% - 1,000 MG/10 ML VIAL IVPUSH ONE ×2 (20:37→20:59)
[2017-05-12] MEDS ORDERED: MAGNESIUM SULF 50% (8.12 MEQ/2 ML-1 GM VIAL) ONE (20:48)
[2017-05-12] MEDS ORDERED: SODIUM BICARBONATE 8.4% 50 MEQ/50 ML DISP.SYRIN IVPUSH ONE ×2 (20:57→20:59)
[2017-05-12] MEDS ORDERED: AMIODARONE HCL INJECTION 150 MG in DEXTROSE 5%-WATER - 97 ML IVPB ONE ×2 (21:03→21:51)
[2017-05-12 21:26] LABS: ARTERIAL BLD GAS O2 SATURATION 82.5 % (90-98.9); ARTERIAL BLOOD GAS BASE EXCESS -22.9 meq/l (-2-2); ARTERIAL BLOOD GAS HCO3 8.5 meq/L (22-26); MECH. VENT. YES
[2017-05-12 21:27] LABS: VENT RATE 35; VT/PRESS 350
--- NOTE | 2017-05-12 21:27 | HOSP ---
Subjective - Review of Symptoms Events since last encounter: Pt rhythm on monitor noted to be Vtach / Vfib. Went to assess patient. Pt was found to be intubated, sedated, unresponsive. Pulse was felt at L carotid. Cardioversion was attempted 7 times without success. The patient was given 2 rounds each of Na Bicarb and Ca gluconate with no change in rhythm. Stat electrolytes and ABG were ordered. Pt continued to have VT/VF. Family was present at bedside. A conversation was had with family and pt's mother in particular. It was explained that the patient was reliant on ventilator and pressor support with multi organ dysfunction. The patient's liver toxicity and resultant dysfunction was further explained to the family, and they verbalized understanding. Side effects of amiodarone (including liver toxicity) were explained to the family, as was the possibility the this medication might be able to break her arrhythmia. Family, mother and brother, stated they understood and would like the medication to be given. The patient's grim prognosis was explained, and family verbalized understanding. However, they felt the "could not give up" and "wanted to do everything". The family stated that the patient's grandfather who raised her is traveling from [place] tomorrow, and they are hopeful that he might see her before she passes. Hospitalist team was notified. Case was discussed with Dr. Chen. Physical Examination Vital Signs: Vital Signs Temperature 99.4 F 05/12/17 19:00 Pulse Rate 111 H 05/12/17 19:00 Respiratory Rate 35 H 05/12/17 19:00 Blood Pressure 90/46 05/12/17 19:00 O2 Sat by Pulse Oximetry (%) 82 L 05/12/17 18:14 Labs: CBC, BMP 05/12/17 05:25 05/12/17 11:00 Visit type - Emergency Visit Emergency Visit: No - New Patient This patient is new to me today: No - Critical Care Critical Care patient: No
[2017-05-12 21:28] LABS: TYPE OF O2 MECH VENT
[2017-05-12] MEDS ORDERED: DEXTROSE 5%-WATER - 1,000 ML with SODIUM BICARBONATE 8.4% - 150 MEQ IV SCH (21:45)
[2017-05-12] MEDS: CHLORHEXIDINE GLUCONATE 4% CLEANSER FOR DECOLONIZATION TP SCH (21:48)
[2017-05-12 22:00] LABS: ALBUMIN 1.5 g/dl (3.4-5.0); ANION GAP 20 (8-16); BILIRUBIN,TOTAL 3.6 mg/dL (0.2-1.0); CALCIUM 7.1 mg/dL (8.5-10.1); CO2 9 mmol/L (21-32); GLUCOSE,RANDOM 283 mg/dL (74-106); TOT PROT 3.8 g/dl (6.4-8.2)
[2017-05-12 22:06] LABS: ALK PHOS 160 U/L (45-117)
[2017-05-12 22:07] LABS: SGOT/AST 1765 U/L (15-37); SGPT/ALT 856 U/L (12-78)
[2017-05-12 22:08] LABS: CREATININE 7.7 mg/dL (0.55-1.02)
[2017-05-12] MEDS ORDERED: AMIODARONE HCL INJECTION 450 MG in DEXTROSE 5%-WATER - 241 ML IVPB SCH (22:30)
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
[2017-05-13] MEDS ORDERED: PT OWN MED DRAWER 7, Y5N ONE (01:10)
[2017-05-13] MEDS ORDERED: EPINEPHrine/PF 1 MG/1 ML (1:1,000) AMPULE ONE ×2 (01:14→09:39)
[2017-05-13] MEDS: SODIUM CHLORIDE IV SCH ×2 (01:22→10:05)
[2017-05-13] MEDS: EPINEPHRINE IV SCH ×2 (01:22→10:05)
[2017-05-13] MEDS: HYDROCORTISONE SOD SUCCINATE 100 MG/2 ML VIAL IVPB SCH ×2 (01:23→11:21)
[2017-05-13] MEDS: DOXYCYCLINE INJECTION 100 MG in DEXTROSE 5%-WATER - 100 ML IVPB SCH (01:23)
[2017-05-13] MEDS: MEROPENEM 1 GM in DEXTROSE 5%-WATER - 100 ML IVPB SCH (01:23)
[2017-05-13] MEDS: PHENYLEPHRINE HCL 20,000 MCG in SODIUM CHLORIDE 248 ML IVPB SCH ×2 (02:00→09:58)
[2017-05-13] MEDS ORDERED: NOREPINEPHRINE BITARTRATE 4 MG/4 ML ML IV ONE ×2 (02:18→08:56)
[2017-05-13] MEDS: NOREPINEPHRINE BITARTRATE 8,000 MCG in DEXTROSE 5%-WATER - 492 ML IV SCH ×3 (05:31→09:56)
[2017-05-13] MEDS: VASOPRESSIN 50 UNITS in SODIUM CHLORIDE 97.5 ML IVPB SCH (05:31)
[2017-05-13 06:08] LABS: MCH 25.5 pg (25.7-33.7); MCHC 30.6 g/dl (32.0-36.0); MEAN CELL VOLUME 83.4 fl (80-96); MEAN PLT VOLUME 9.9 fl (7.5-11.1); PLATELET COUNT 139 K/MM3 (134-434); RDW 16.6 % (11.6-15.6); WHITE BLOOD COUNT 12.9 K/mm3 (4.0-10.0)
[2017-05-13] MEDS: HEPARIN NA (PORCINE) 5,000 UNITS/ML 1ML VIAL SQ SCH (06:18)
[2017-05-13 06:38] LABS: ANION GAP 23 (8-16); CO2 9 mmol/L (21-32); GLUCOSE,RANDOM 226 mg/dL (74-106); MAGNESIUM 2.4 mg/dL (1.8-2.4)
[2017-05-13 07:30] LABS: CALCIUM 6.3 mg/dL (8.5-10.1); CREATININE 7.7 mg/dL (0.55-1.02)
[2017-05-13 07:31] LABS: PHOSPHOROUS 9.1 mg/dL (2.5-4.9)
[2017-05-13 07:35] LABS: ARTERIAL BLD GAS O2 SATURATION 70.5 % (90-98.9); ARTERIAL BLOOD GAS BASE EXCESS -26.5 meq/l (-2-2); ARTERIAL BLOOD GAS HCO3 6.2 meq/L (22-26); ARTERIAL BLOOD GAS PO2 55.1 mmHg (80-100)
[2017-05-13 07:36] LABS: MECH. VENT. YES; VENT RATE 35; VT/PRESS 350
[2017-05-13 07:37] LABS: TYPE OF O2 VENT 100%
[2017-05-13 07:39] LABS: ARTERIAL BLOOD GAS pH 6.78 (7.35-7.45)
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
[2017-05-13] MEDS ORDERED: PHENYLEPHRINE HCL 10 MG/1 ML SINGLE DOSE VIAL ONE (08:54)
[2017-05-13] MEDS: MUPIROCIN 2% TOPICAL OINTMENT FOR DECOLONIZATION NS SCH (10:00)
[2017-05-13 10:07] LABS: METAMYELOCYTE 6 % (0-2); MYELOCYTE 4 % (0-2); NUCLEATED RED BLOOD CELL 5 % (0-0); PLATELET ESTIMATE ADEQUATE (NORMAL); TOTAL CELLS COUNTED 100
--- NOTE | 2017-05-13 10:07 | PN ---
Progress Note (short form) - Note Progress Note: Neurology HISTORY OF PRESENT ILLNESS: 27 yr old with asthma, HTN, and morbid obesity presents to the ED with nausea and nonbloody, nonbilous vomiting. She was diagnosed with pancreatitis with highly elevated TG. During hospitalization with multiple organ failure, she had respiratory failure, intubated and ventilated in ICU. She has been put on multiple pressors. She was seen by neurologist who deemed absence of brain stem reflexes, family requested second opinion. Completed exam at bedside with nurse and agree with prior assessment. She does not have pupil response, dilated and fixed, no corneals, gag absent, no response no noxious stimulation, toes mute. She is not on sedation. Overnight with multiple defibrilator shocks needed as patient with episodes of Vfib and Vtac as documented, reviewed hospitalist note. Spoke to family at bedside, mother and cousin, and expressed understanding of gravity of condition. They are awaiting family member to visit from [place] at this time and want complete care but did express concern about continued defibrillations overnight. She was previously not able to tolerate apnea test due to immediate bradycardia. PHYSICAL EXAMINATION Vital Signs Period Temp Pulse Resp BP Sys/Pena Pulse Ox Last 24 Hr 97.2 F-99.7 F 83-183 35-35 77-107/37-53 77-84 Comastose, no spontaneous movements Mechanical breath sounds Pupil fixed and dilated Negative corneal response Gag reflex absent No response to sternal rub Toes mute to plantar Not overbreathing vent CBCD WBC 12.9 K/mm3 (4.0-10.0) H 05/13/17 05:40 RBC 3.17 M/mm3 (3.60-5.2) L 05/13/17 05:40 Hgb 8.1 GM/dL (10.7-15.3) L D 05/13/17 05:40 Hct 26.4 % (32.4-45.2) L 05/13/17 05:40 MCV 83.4 fl (80-96) 05/13/17 05:40 MCHC 30.6 g/dl (32.0-36.0) L 05/13/17 05:40 RDW 16.6 % (11.6-15.6) H 05/13/17 05:40 Plt Count 139 K/MM3 (134-434) D 05/13/17 05:40 MPV 9.9 fl (7.5-11.1) 05/13/17 05:40 CMP Sodium 126 mmol/L (136-145) L 05/13/17 05:40 Potassium 5.7 mmol/L (3.5-5.1) H 05/13/17 05:40 Chloride 94 mmol/L (98-107) L 05/13/17 05:40 Carbon Dioxide 9 mmol/L (21-32) L 05/13/17 05:40 Anion Gap 23 (8-16) H 05/13/17 05:40 BUN 30 mg/dL (7-18) H 05/13/17 05:40 Creatinine 7.7 mg/dL (0.55-1.02) H* 05/13/17 05:40 Creat Clearance w eGFR 6.22 (>60) 05/12/17 21:20 Calcium 6.3 mg/dL (8.5-10.1) L* 05/13/17 05:40 Total Bilirubin 3.6 mg/dL (0.2-1.0) H D 05/12/17 21:20 AST 1765 U/L (15-37) H 05/12/17 21:20 ALT 856 U/L (12-78) H D 05/12/17 21:20 Alkaline Phosphatase 160 U/L (45-117) H D 05/12/17 21:20 Total Protein 3.8 g/dl (6.4-8.2) L 05/12/17 21:20 Albumin 1.5 g/dl (3.4-5.0) L 05/12/17 21:20 ASSESSMENT/PLAN: 27 yr old woman with HTN, presents with n/v a/w abdominal pain found to have elevated lipase and DKA admitted to ICU for further evalatuon and management. During hospitalization with multiple organ failure, she had respiratory failure , intubated and ventilated in ICU. She has been put on multiple pressors. She was seen by neurologist who deemed absence of brain stem reflexes, family requested second opinion. Completed exam at bedside with nurse and agree with prior assessment. She does not have pupil response, dilated and fixed, no corneals, gag absent, no response no noxious stimulation, toes mute. She is not on sedation. Anoxic brain injury and multiorgan failure. Apnea test per respiratory/ICU as this would be needed to confirm brain per protocal. Spoke to family in detail at bedside. Critical care 45 mins.
[2017-05-13] MEDS: FENTANYL INJECTION 500 MCG in DEXTROSE 5%-WATER - 90 ML IJ SCH (11:11)
[2017-05-13 12:59] VITALS: BP 104/35; PULSE 90; TEMP 95.5
--- NOTE | 2017-05-13 13:29 | PN ---
Physical Exam: SUBJECTIVE: Patient seen and examined; intubated mechanical vent AC; off sedation, on four pressers. Shocked multiple times last night. Mother at bedside , sates she does not want daughter shocked anymore. Would like her still on vent. OBJECTIVE: Vital Signs Period Temp Pulse Resp BP Sys/Pena Pulse Ox Last 24 Hr 95.5 F-99.6 F 70-183 35-35 65-107/35-53 77-84 GENERAL:intubated; off sedation; not arousable EYES: blown pupils; non reactive; LUNGS: course ventilated breath sounds HEART: regulat rate ABDOMEN: Soft, nontender, nondistended, normoactive bowel sounds, no guarding, no rebound, no hepatosplenomegaly, no masses. EXTREMITIES: 2+ pulses, warm, well-perfused, no edema. whole body anasarca NEUROLOGICAL: non responsive; no spontaneous movements to verbal/tactile/ painful stimuli; blown pupils fixed and dilated; no corneal reflex; CBC, BMP 05/13/17 05:40 05/13/17 05:40 Active Medications Generic Name Dose Route Start Last Admin Trade Name Freq PRN Reason Stop Dose Admin Albuterol Sulfate 1 amp 05/08/17 23:55 Ventolin 0.083% Nebulizer Soln - NEB Q6H PRN SHORT OF BREATH/WHEEZING Chlorhexidine Gluconate 1 applic 05/08/17 22:00 05/12/17 21:48 Hibiclens For Decolonization - TP 1 applic HS LUNA Administration Heparin Sodium (Porcine) 5,000 unit 05/09/17 06:00 05/13/17 06:18 Heparin - SQ 5,000 unit TID LUNA Administration Hydrocortisone Sodium Succinate 100 mg 05/11/17 02:00 05/13/17 11:21 Solu-Cortef - IVPB 100 mg Q8H-IV LUNA Administration Fentanyl 500 mcg/ Dextrose 100 mls @ 15 mls/hr 05/09/17 10:30 05/13/17 11:11 IJ Not Given TITR LUNA 75 MCG/HR Midazolam HCl 100 mg/ Sodium 100 mls @ 4 mls/hr 05/09/17 12:30 05/12/17 13:18 Chloride IVPB Not Given TITR LUNA Protocol 4 MG/HR Norepinephrine Bitartrate 8, 500 mls @ 18.75 mls/hr 05/09/17 16:00 05/13/17 09: 56 000 mcg/ Dextrose IV 131 mls/hr TITR LUNA Administration Protocol 5 MCG/MIN Phenylephrine HCl 20,000 mcg/ 250 mls @ 75 mls/hr 05/09/17 16:00 05/13/17 09:58 Sodium Chloride IVPB 112.5 mls/hr ASDIR LUNA Administration Protocol 100 MCG/MIN Vasopressin 50 units/ Sodium 100 mls @ 4 mls/hr 05/09/17 16:00 05/13/17 05:31 Chloride IVPB 8 mls/hr ASDIR LUNA Administration Protocol 2 UNITS/HR Doxycycline Hyclate 100 mg/ 100 mls @ 100 mls/hr 05/10/17 02:00 05/13/17 01:23 Dextrose IVPB 100 mls/hr Q12H LUNA Administration Epinephrine HCl 1,000 mcg/ 250 mls @ 180.84 mls/hr 05/10/17 00:53 05/13/17 10: 05 Sodium Chloride IV 180.84 mls/hr ASDIR LUNA Administration Protocol 0.1 MCG/KG/MIN Meropenem 1 gm/ Dextrose 100 mls @ 200 mls/hr 05/10/17 14:00 05/13/17 01:23 IVPB 200 mls/hr Q12H LUNA Administration Insulin Human Regular 100 100 mls @ 13.61 mls/hr 05/10/17 21:43 05/12/17 21:48 units/ Sodium Chloride IVPB 15 mls/hr TITR LUNA Administration Protocol 0.1 UNITS/KG/HR Sodium Bicarbonate 150 meq/ 1,150 mls @ 150 mls/hr 05/12/17 21:45 05/12/17 21: 56 Dextrose IV 150 mls/hr .Q8H LUNA Administration Amiodarone HCl 450 mg/ 250 mls @ 16.66 mls/hr 05/12/17 22:30 05/12/17 22:55 Dextrose IVPB 33.33 mls/hr TITR LUNA Administration Protocol 0.5 MG/MIN Mupirocin 1 applic 05/08/17 22:00 05/13/17 10:00 Bactroban Ointment (For Decolonization) - NS 05/13/17 21:59 1 applic BID LUNA Administration ASSESSMENT/PLAN: This is a 27 year old female with severe pancreatitis secondary to hypertyglycerlidemia, who developed ARDS with anoxic brain injury and subsequent acute hypoxic respiratory failure now intubated and mechanically ventilated on four pressers with multiple organ failure. #anoxic brain injury progressing to brain secondary to acute respiratory failure due to ARDS -intubated, off sedation and mechanically ventilated AC mode -apnea test unable to perform due to hemodynamic instability -neuro eval for brain ; second opinion from neuro was the same -palliative care for [facility] #severe pancreatitis secondary to severe hypertryglyceridemia with acute DKA secondary to severe pancreatitis -s/p apharesis; -tryglycerides still elevated; unable to cont w apharesis due to instability -cont insulin drip to assist with lipids with D5 to prevent hypoglycemia; BGM q2h; keep glucose 120-180 -heme/onc ; endocrine appreciated #severe hypocalemia secondary to severe pancreatitis; improved -cont calcium gg d/c'd ; give calcium gluconate 2mg IVP prn -replete mg prn to assist with Ca absorption -f/u bmp #acute renal failure with severe metabolic acidosis most likely secondary to hypovolemic shock secondary to severe pancreatitis acute tubular necrosis -PH 6.9 again today even after bicarb given q6h -cont bicarb for now -unstable for hemodialysis -renal consult appreciated FEN: Fluids: cont IVF Electrolytes: f/u ca, bmp q2h Diet: hold feeds VTE: heparin sq Disposition: prognosis very poor; palliative care consulted ; family wants to wait for grandfather Problem List - Problems (1) Hypertriglyceridemia Code(s): E78.1 - PURE HYPERGLYCERIDEMIA (2) Multiorgan failure Code(s): GEW6145 - (3) Pancreatitis Code(s): K85.90 - ACUTE PANCREATITIS WITHOUT NECROSIS OR INFECTION, UNSP Qualifiers: Chronicity: acute Pancreatitis type: other Acute pancreatitis complication: unspecified Qualified Code(s): K85.80 - Other acute pancreatitis without necrosis or infection; K85.80 - Other acute pancreatitis without necrosis or infection (4) Cerebral anoxic injury Code(s): G93.1 - ANOXIC BRAIN DAMAGE, NOT ELSEWHERE CLASSIFIED (5) DKA (diabetic ketoacidoses) Code(s): E13.10 - OTH DIABETES MELLITUS WITH KETOACIDOSIS WITHOUT COMA (6) Hemodynamic instability Code(s): R09.89 - OTH SYMPTOMS AND SIGNS INVOLVING THE CIRC AND RESP SYSTEMS (7) Metabolic acidemia Code(s): E87.2 - ACIDOSIS Visit type - Emergency Visit Emergency Visit: Yes ED Registration Date: 05/08/17 Care time: The patient presented to the Emergency Department on the above date and was hospitalized for further evaluation of their emergent condition. - New Patient This patient is new to me today: No - Critical Care Critical Care patient: Yes Total Critical Care Time (in minutes): 36 Critical Care Statement: The care of this patient involved high complexity decision making to prevent further life threatening deterioration of the patient 's condition and/or to evaluate & treat vital organ system(s) failure or risk of failure.
--- NOTE | 2017-05-13 13:34 | HOSP ---
Subjective - Review of Symptoms Events since last encounter: Note: Called by ICU team as patient has Physical exam: No electrical activity on monitoring engineer no BP No heart sounds no breath sounds skin is cool to touch no brainstem reflexes. no Gag no corneal reflexes pupils fixed and dilated time of : 1320 Family at bedside Physical Examination Vital Signs: Vital Signs Temperature 95.5 F L 05/13/17 12:00 Pulse Rate 90 05/13/17 12:00 Respiratory Rate 35 H 05/13/17 12:30 Blood Pressure 104/35 05/13/17 12:00 O2 Sat by Pulse Oximetry (%) 77 L 05/13/17 08:00 Labs: CBC, BMP 05/13/17 05:40 05/13/17 05:40 Visit type - Emergency Visit Emergency Visit: Yes ED Registration Date: 05/08/17 Care time: The patient presented to the Emergency Department on the above date and was hospitalized for further evaluation of their emergent condition. - New Patient This patient is new to me today: Yes Date on this admission: 05/13/17 - Critical Care Critical Care patient: Yes Total Critical Care Time (in minutes): 35 Critical Care Statement: The care of this patient involved high complexity decision making to prevent further life threatening deterioration of the patient 's condition and/or to evaluate & treat vital organ system(s) failure or risk of failure.
--- NOTE | 2017-05-13 13:35 | PN ---
Progress Note, Physician History of Present Illness: Pt remain in the ICU intubated and mechanically ventilated. She remain on pressors. Pt remains hypotensive. Family are discussing GOC. Pt was cardioverted several times overnight. - Current Medication List Current Medications: Active Medications Albuterol Sulfate (Ventolin 0.083% Nebulizer Soln -) 1 amp NEB Q6H PRN PRN Reason: SHORT OF BREATH/WHEEZING Chlorhexidine Gluconate (Hibiclens For Decolonization -) 1 applic TP HS LUNA Last Admin: 05/12/17 21:48 Dose: 1 applic Heparin Sodium (Porcine) (Heparin -) 5,000 unit SQ TID LUNA Last Admin: 05/13/17 06:18 Dose: 5,000 unit Hydrocortisone Sodium Succinate (Solu-Cortef -) 100 mg IVPB Q8H-IV LUNA Last Admin: 05/13/17 11:21 Dose: 100 mg Fentanyl 500 mcg/ Dextrose 100 mls @ 15 mls/hr IJ TITR LUNA PRN Reason: 75 MCG/HR Last Admin: 05/13/17 11:11 Dose: Not Given Midazolam HCl 100 mg/ Sodium (Chloride) 100 mls @ 4 mls/hr IVPB TITR LUNA; 4 MG/ HR PRN Reason: Protocol Last Admin: 05/12/17 13:18 Dose: Not Given Norepinephrine Bitartrate 8, (000 mcg/ Dextrose) 500 mls @ 18.75 mls/hr IV TITR LUNA; 5 MCG/MIN PRN Reason: Protocol Last Admin: 05/13/17 09:56 Dose: 131 mls/hr Phenylephrine HCl 20,000 mcg/ (Sodium Chloride) 250 mls @ 75 mls/hr IVPB ASDIR LUNA; 100 MCG/MIN PRN Reason: Protocol Last Admin: 05/13/17 09:58 Dose: 112.5 mls/hr Vasopressin 50 units/ Sodium (Chloride) 100 mls @ 4 mls/hr IVPB ASDIR LUNA; 2 UNITS/HR PRN Reason: Protocol Last Admin: 05/13/17 05:31 Dose: 8 mls/hr Doxycycline Hyclate 100 mg/ (Dextrose) 100 mls @ 100 mls/hr IVPB Q12H LUNA Last Admin: 05/13/17 01:23 Dose: 100 mls/hr Epinephrine HCl 1,000 mcg/ (Sodium Chloride) 250 mls @ 180.84 mls/hr IV ASDIR LUNA; 0.1 MCG/KG/MIN PRN Reason: Protocol Last Admin: 05/13/17 10:05 Dose: 180.84 mls/hr Meropenem 1 gm/ Dextrose 100 mls @ 200 mls/hr IVPB Q12H LUNA Last Admin: 05/13/17 01:23 Dose: 200 mls/hr Insulin Human Regular 100 (units/ Sodium Chloride) 100 mls @ 13.61 mls/hr IVPB TITR LUNA; 0.1 UNITS/KG/HR PRN Reason: Protocol Last Admin: 05/12/17 21:48 Dose: 15 mls/hr Sodium Bicarbonate 150 meq/ (Dextrose) 1,150 mls @ 150 mls/hr IV .Q8H LUNA Last Admin: 05/12/17 21:56 Dose: 150 mls/hr Amiodarone HCl 450 mg/ (Dextrose) 250 mls @ 16.66 mls/hr IVPB TITR LUNA; 0.5 MG/ MIN PRN Reason: Protocol Last Admin: 05/12/17 22:55 Dose: 33.33 mls/hr Mupirocin (Bactroban Ointment (For Decolonization) -) 1 applic NS BID LUNA Stop: 05/13/17 21:59 Last Admin: 05/13/17 10:00 Dose: 1 applic - Objective Vital Signs: Vital Signs Temperature 95.5 F L 05/13/17 12:00 Pulse Rate 90 05/13/17 12:00 Respiratory Rate 35 H 05/13/17 12:30 Blood Pressure 104/35 05/13/17 12:00 O2 Sat by Pulse Oximetry (%) 77 L 05/13/17 08:00 Cardiovascular: Yes: Tachycardia, S1, S2 Respiratory: Yes: Mechanically Ventilated Gastrointestinal: Yes: Abdomen, Obese Genitourinary: Yes: Hugo Present Musculoskeletal: Yes: Muscle Weakness Edema: Yes Edema: LLE: 3+, RLE: 3+ Neurological: Yes: Lethargy Labs: CBC, BMP 05/13/17 05:40 05/13/17 05:40 INR, PTT INR 1.13 (0.82-1.09) 05/12/17 05:25 Fibrinogen 486.0 mg/dL (238-498) D 05/11/17 05:00 Problem List - Problems (1) Hypertriglyceridemia Code(s): E78.1 - PURE HYPERGLYCERIDEMIA (2) Multiorgan failure Code(s): [id number] - (3) DKA (diabetic ketoacidoses) Code(s): E13.10 - OTH DIABETES MELLITUS WITH KETOACIDOSIS WITHOUT COMA (4) Diabetes mellitus Code(s): E11.9 - TYPE 2 DIABETES MELLITUS WITHOUT COMPLICATIONS (5) Metabolic acidemia Code(s): E87.2 - ACIDOSIS (6) ABBEY (acute kidney injury) Code(s): N17.9 - ACUTE KIDNEY FAILURE, UNSPECIFIED Assessment/Plan Current Medications Generic Name Dose Route Start Last Admin Trade Name Freq PRN Reason Stop Dose Admin Albuterol Sulfate 1 amp 05/08/17 23:55 Ventolin 0.083% Nebulizer Soln - NEB Q6H PRN SHORT OF BREATH/WHEEZING Chlorhexidine Gluconate 1 applic 05/08/17 22:00 05/12/17 21:48 Hibiclens For Decolonization - TP 1 applic HS LUNA Administration Heparin Sodium (Porcine) 5,000 unit 05/09/17 06:00 05/13/17 06:18 Heparin - SQ 5,000 unit TID LUNA Administration Hydrocortisone Sodium Succinate 100 mg 05/11/17 02:00 05/13/17 11:21 Solu-Cortef - IVPB 100 mg Q8H-IV LUNA Administration Fentanyl 500 mcg/ Dextrose 100 mls @ 15 mls/hr 05/09/17 10:30 05/13/17 11:11 IJ Not Given TITR LUNA 75 MCG/HR Midazolam HCl 100 mg/ Sodium 100 mls @ 4 mls/hr 05/09/17 12:30 05/12/17 13:18 Chloride IVPB Not Given TITR LUNA Protocol 4 MG/HR Norepinephrine Bitartrate 8, 500 mls @ 18.75 mls/hr 05/09/17 16:00 05/13/17 09: 56 000 mcg/ Dextrose IV 131 mls/hr TITR LUNA Administration Protocol 5 MCG/MIN Phenylephrine HCl 20,000 mcg/ 250 mls @ 75 mls/hr 05/09/17 16:00 05/13/17 09:58 Sodium Chloride IVPB 112.5 mls/hr ASDIR LUNA Administration Protocol 100 MCG/MIN Vasopressin 50 units/ Sodium 100 mls @ 4 mls/hr 05/09/17 16:00 05/13/17 05:31 Chloride IVPB 8 mls/hr ASDIR LUNA Administration Protocol 2 UNITS/HR Doxycycline Hyclate 100 mg/ 100 mls @ 100 mls/hr 05/10/17 02:00 05/13/17 01:23 Dextrose IVPB 100 mls/hr Q12H LUNA Administration Epinephrine HCl 1,000 mcg/ 250 mls @ 180.84 mls/hr 05/10/17 00:53 05/13/17 10: 05 Sodium Chloride IV 180.84 mls/hr ASDIR LUNA Administration Protocol 0.1 MCG/KG/MIN Meropenem 1 gm/ Dextrose 100 mls @ 200 mls/hr 05/10/17 14:00 05/13/17 01:23 IVPB 200 mls/hr Q12H LUNA Administration Insulin Human Regular 100 100 mls @ 13.61 mls/hr 05/10/17 21:43 05/12/17 21:48 units/ Sodium Chloride IVPB 15 mls/hr TITR LUNA Administration Protocol 0.1 UNITS/KG/HR Sodium Bicarbonate 150 meq/ 1,150 mls @ 150 mls/hr 05/12/17 21:45 05/12/17 21: 56 Dextrose IV 150 mls/hr .Q8H LUNA Administration Amiodarone HCl 450 mg/ 250 mls @ 16.66 mls/hr 05/12/17 22:30 05/12/17 22:55 Dextrose IVPB 33.33 mls/hr TITR LUNA Administration Protocol 0.5 MG/MIN Mupirocin 1 applic 05/08/17 22:00 05/13/17 10:00 Bactroban Ointment (For Decolonization) - NS 05/13/17 21:59 1 applic BID LUNA Administration Laboratory Tests 05/10/17 14:31 MARTA Screen Pending c-ANCA Pending Proteinase 3 (PR3) Pending p-ANCA Pending Atypical p-ANCA Pending Myeloperoxidase Ab Pending Double Strand DNA Ab Pending Glomerular Base Memb Ab Pending Selected Entries 05/13/17 05/13/17 05/13/17 08:00 10:00 11:00 Blood Pressure 85/42 89/39 65/39 Impression 1. ABBEY 2. pancreatities 3. ARDS 4. shock 5. acute respiratory failure 6. DKA 7. hypotension 8. hypocalcemia 9. hypertriglyceridemia 10. multi-organ system failure 11. hypomagnesemia Plan - family are discussing GOC and withdrawl of certain medications - renal function worsening - pt is hypervolemic - pt is unstable for HD - she remains in shock - cont care per primary team - prognosis is poor - discussed with ICU team Dr Peace
--- NOTE | 2017-05-13 15:22 | PN ---
Teaching Attending Note Name of Resident: Fatmata Pina ATTENDING PHYSICIAN STATEMENT I saw and evaluated the patient. I reviewed the resident's note and discussed the case with the resident. I agree with the resident's findings and plan as documented. SUBJECTIVE: Patient seen and examined in the unit. Remains unresponsive. Events overnight noted. Multiple courses of defibrillation due to recurrent ventricular ectopy likely exacerbated by severe acidosis (6.7) and multiple pressors. Mother at the bedside. I explained that at this point we are adding injury with benefit. The mother understands and requests no further defibrillation and no chest compressions as this intervention would not provide any medical benefit at this critical juncture. Unfortunately given her condition, further treatment would be medically futile. The mother has agreed to withdraw pressors but would like the patient to stay on mechanical ventilation. Intake & Output 05/10/17 05/11/17 05/12/17 05/13/17 23:59 23:59 23:59 23:59 Intake Total 13442 21906 51709 6469 Output Total 195 810 305 220 Balance 66274 53958 05779 6249 Weight 300 lb 1.6 oz 328 lb 14.4 oz 356 lb 7 oz 380 lb 5 oz Last Vital Signs Temp Pulse Resp BP Pulse Ox 95.5 F L 90 35 H 104/35 77 L 05/13/17 12:00 05/13/17 12:00 05/13/17 12:30 05/13/17 12:00 05/13/17 08:00 Gen: Non-responsive, Anasarca HEENT: Pupils dilated and unreactive, R IJ Catheter PULM: diffuse crackles, no wheezes, AC Mode of mechanical ventilation CV: tachy, regular, no m/r/g appreciated ABD: obese, distended, hypoactive BS EXT: trace edema Neuro: non-responsive Laboratory Results - last 24 hr 05/09/17 05/11/17 05/11/17 05:45 11:45 13:15 WBC RBC Hgb Hct MCV MCH MCHC RDW Plt Count MPV Total Counted Neutrophils % Neutrophils % (Manual) Band Neuts % (Manual) Lymphocytes % Lymphocytes % (Manual) Monocytes % (Manual) Myelocytes % (Man) Nucleated RBC % Platelet Estimate ABG pH ABG pCO2 at Pt Temp ABG pO2 at Pt Temp ABG HCO3 ABG O2 Sat (Measured) ABG O2 Content ABG Base Excess O2 Delivery Device Vent Mode Vent Rate Mechanical Rate PEEP Pressure Support Vent Sodium Potassium Chloride Carbon Dioxide Anion Gap BUN Creatinine Creat Clearance w eGFR Random Glucose Calcium Ionized Calcium TNP 3.3 L 3.4 L Phosphorus Magnesium Total Bilirubin AST ALT Alkaline Phosphatase Total Protein Albumin 05/12/17 05/12/17 05/13/17 21:20 21:20 05:40 WBC 12.9 H RBC 3.17 L Hgb 8.1 L D Hct 26.4 L MCV 83.4 MCH 25.5 L MCHC 30.6 L RDW 16.6 H Plt Count 139 D MPV 9.9 Total Counted 100 Neutrophils % No Result Required. Neutrophils % (Manual) 71 Band Neuts % (Manual) 9 Lymphocytes % No Result Required. Lymphocytes % (Manual) 7 L Monocytes % (Manual) 3 L Myelocytes % (Man) 4 H Nucleated RBC % 5 H Platelet Estimate Adequate ABG pH 6.90 L* ABG pCO2 at Pt Temp 45.6 H ABG pO2 at Pt Temp 62.0 L ABG HCO3 8.5 L* ABG O2 Sat (Measured) 82.5 L ABG O2 Content 9.5 L* ABG Base Excess -22.9 L* O2 Delivery Device Mech vent Vent Mode A/c Vent Rate 35 Mechanical Rate Yes PEEP 12.0 Pressure Support Vent 350 Sodium 126 L Potassium 5.5 H Chloride 97 L Carbon Dioxide 9 L Anion Gap 20 H BUN 29 H Creatinine 7.7 H* Creat Clearance w eGFR 6.22 Random Glucose 283 H Calcium 7.1 L Ionized Calcium Phosphorus Magnesium Total Bilirubin 3.6 H D AST 1765 H ALT 856 H D Alkaline Phosphatase 160 H D Total Protein 3.8 L Albumin 1.5 L 05/13/17 05/13/17 05:40 07:15 WBC RBC Hgb Hct MCV MCH MCHC RDW Plt Count MPV Total Counted Neutrophils % Neutrophils % (Manual) Band Neuts % (Manual) Lymphocytes % Lymphocytes % (Manual) Monocytes % (Manual) Myelocytes % (Man) Nucleated RBC % Platelet Estimate ABG pH 6.78 L* ABG pCO2 at Pt Temp 44.6 ABG pO2 at Pt Temp 55.1 L ABG HCO3 6.2 L* ABG O2 Sat (Measured) 70.5 L* ABG O2 Content 7.8 L* ABG Base Excess -26.5 L* O2 Delivery Device Vent 100% Vent Mode A/c Vent Rate 35 Mechanical Rate Yes PEEP 12.0 Pressure Support Vent 350 Sodium 126 L Potassium 5.7 H Chloride 94 L Carbon Dioxide 9 L Anion Gap 23 H BUN 30 H Creatinine 7.7 H* Creat Clearance w eGFR Random Glucose 226 H D Calcium 6.3 L* Ionized Calcium Phosphorus 9.1 H* D Magnesium 2.4 Total Bilirubin AST ALT Alkaline Phosphatase Total Protein Albumin Problem List - Problems (1) Pancreatitis Code(s): K85.90 - ACUTE PANCREATITIS WITHOUT NECROSIS OR INFECTION, UNSP (2) DKA (diabetic ketoacidoses) Code(s): E13.10 - OTH DIABETES MELLITUS WITH KETOACIDOSIS WITHOUT COMA Assessment/Plan Acute Respiratory Failure Severe Anoxic Brain injury progressing to Brain . Morbid obesity DKA HTN Pancreatitis likley 2/2 hyperlipidemia/triglyceridemia ARDS ARF MOF Unfortunately at this point all effort are considered medically futile Will comply with the mother;s wishes and stop pressors and no further defibrillation and will not perform chest compressions. The mother expressed understanding that stopping the pressors will hasten her passing. Supportive / comfort care measures Dr Chen Critical care time spent in reviewing chart, evaluating patient and formulating plan - 60 minutes.
[2017-05-13 16:31] LABS: C-ANCA <1:20 titer (Neg:<1:20); MYELOPEROXIDASE ANTIBODY <9.0 U/mL (0.0-9.0); P-ANCA <1:20 titer (Neg:<1:20); PROTEINASE-3 ANTIBODY <3.5 U/mL (0.0-3.5)
--- NOTE | 2017-05-14 10:10 | EKG ---
Test Reason : Blood Pressure : / mmHG Vent. Rate : 099 BPM Atrial Rate : 099 BPM P-R Int : 000 ms QRS Dur : 106 ms QT Int : 338 ms P-R-T Axes : 125 203 181 degrees QTc Int : 433 ms POOR DATA QUALITY, INTERPRETATION MAY BE ADVERSELY AFFECTED SUSPECT ARM LEAD REVERSAL, INTERPRETATION ASSUMES NO REVERSAL UNUSUAL P AXIS, POSSIBLE ECTOPIC ATRIAL RHYTHM RIGHT SUPERIOR AXIS DEVIATION LOW VOLTAGE QRS INFERIOR INFARCT , AGE UNDETERMINED CANNOT RULE OUT ANTERIOR INFARCT , AGE UNDETERMINED ABNORMAL ECG WHEN COMPARED WITH ECG OF 08-MAY-2017 21:34, ECTOPIC ATRIAL RHYTHM HAS REPLACED SINUS RHYTHM QUESTIONABLE CHANGE IN QRS DURATION MINIMAL CRITERIA FOR ANTERIOR INFARCT ARE NOW PRESENT INFERIOR INFARCT IS NOW PRESENT Confirmed by TRAM ORELLANA, TIM ([id number]) on 05/14/2017 10:10:14 AM Referred By: Confirmed By:TIM UGALDE MD
== END 2017-05-13 13:20 | disposition expired | DRG 438 ==
LOC: JER 14:36 → JERBED 20:41 → JICU 22:20
PROVIDERS: ADMIT Internal Medicine; ATTEND Internal Medicine
PROC: 0BH17EZ Insertion of Endotracheal Airway into Trachea, Via Natural or Artificial Opening (ICD-10-PCS; principal; 2017-05-09)
PROC: 5A1945Z Respiratory Ventilation, 24-96 Consecutive Hours (ICD-10-PCS; 2017-05-09)
PROC: 05HM33Z Insertion of Infusion Device into Right Internal Jugular Vein, Percutaneous Approach (ICD-10-PCS; 2017-05-09)
PROC: B513ZZA Fluoroscopy of Right Jugular Veins, Guidance (ICD-10-PCS; 2017-05-09)
PROC: 06HM33Z Insertion of Infusion Device into Right Femoral Vein, Percutaneous Approach (ICD-10-PCS; 2017-05-09)
PROC: B51BZZA Fluoroscopy of Right Lower Extremity Veins, Guidance (ICD-10-PCS; 2017-05-09)
DX: K85.90 Acute pancreatitis without necrosis or infection, unspecified (principal); E11.10 Type 2 diabetes mellitus with ketoacidosis without coma; A41.9 Sepsis, unspecified organism; R65.21 Severe sepsis with septic shock; J96.00 Acute respiratory failure, unspecified whether with hypoxia or hypercapnia; N17.0 Acute kidney failure with tubular necrosis; Z68.44 Body mass index [BMI] 60.0-69.9, adult; E87.1 Hypo-osmolality and hyponatremia; E87.4 Mixed disorder of acid-base balance; G93.1 Anoxic brain damage, not elsewhere classified; E78.1 Pure hyperglyceridemia; I10 Essential (primary) hypertension; E66.01 Morbid (severe) obesity due to excess calories; J45.909 Unspecified asthma, uncomplicated; E83.51 Hypocalcemia; E83.39 Other disorders of phosphorus metabolism; E87.8 Other disorders of electrolyte and fluid balance, not elsewhere classified; E83.42 Hypomagnesemia
CPT/HCPCS: 31500; 36415; 36600; 71010-TC; 71020-TC; 74000-TC; 74176-TC; 76700-TC; 80048; 80053; 80061; 80074; 80076; 80307; 81003; 81015; 82009; 82150; 82310; 82330; 82550; 82553; 82784; 82803; 82947; 83036; 83516; 83520; 83605; 83615; 83690; 83721; 83735; 83970; 84100; 84439; 84443; 84478; 84484; 84702; 84703; 85025; 85027; 85384; 85610; 85730; 86038; 86225; 86256; 86850; 86900; 86901; 87040; 93005; 93010; 93306-TC; 94002; 99283-25; J1644